=== PATIENT | male | born 1965 | race Caucasian/White ===

== ENCOUNTER → 2017-08-05 | Outpatient (CLI) | payer BC ==
[2017-08-05 15:08] LABS: Basophils % (A) 0 %; Eosinophils # (A) 0.2 k/uL (0-0.7); Eosinophils % (A) 2 %; HCT 28.8 % (39.0-53.0); HGB 8.9 gm/dL (13.0-17.5); Lymphocytes # (A) 2.9 k/uL (1.0-4.8); Lymphocytes % (A) 32 %; MCH 30.4 pg (25.0-35.0); Mean Platelet Volume 6.6; Monocytes # (A) 0.4 k/uL (0-1.0); Monocytes % (A) 4 %; Neutrophils # (A) 5.5 k/uL (1.3-7.7); Neutrophils % (A) 61 %; Platelet Count 398 k/uL (150-450); RBC 2.94 m/uL (4.30-5.90); RDW 14.5 % (11.5-15.5)
== END | disposition home or self-care (01) ==
LOC: LABWHC1 14:12
PROVIDERS: ATTEND Surgery Plastic and Reconstructive Surgery
DX: D64.9 Anemia, unspecified (principal); D62 Acute posthemorrhagic anemia
CPT/HCPCS: 36415; 85025

== ENCOUNTER → 2017-08-09 | Outpatient (CLI) | payer BC ==
[2017-08-09 10:47] LABS: HCT 28.9 % (39.0-53.0); HGB 9.1 gm/dL (13.0-17.5); MCH 30.5 pg (25.0-35.0); MCHC 31.4 g/dL (31.0-37.0); Mean Platelet Volume 6.9; Platelet Count 372 k/uL (150-450); RBC 2.98 m/uL (4.30-5.90); RDW 14.9 % (11.5-15.5); WBC 8.8 k/uL (3.8-10.6)
== END | disposition home or self-care (01) ==
LOC: LABWHC1 10:18
PROVIDERS: ATTEND Surgery Plastic and Reconstructive Surgery
DX: D62 Acute posthemorrhagic anemia (principal)
CPT/HCPCS: 36415; 85027

== ENCOUNTER → 2017-09-13 | Outpatient (CLI) | payer BC ==
[2017-09-13 15:56] LABS: HCT 40.5 % (39.0-53.0); HGB 13.4 gm/dL (13.0-17.5); MCH 32.3 pg (25.0-35.0); MCHC 33.2 g/dL (31.0-37.0); MCV 97.2 fL (80.0-100.0); Mean Platelet Volume 6.4; Platelet Count 278 k/uL (150-450); RBC 4.17 m/uL (4.30-5.90); RDW 13.6 % (11.5-15.5); WBC 9.4 k/uL (3.8-10.6)
== END | disposition home or self-care (01) ==
LOC: LABWHC1 15:10
PROVIDERS: ATTEND Surgery Plastic and Reconstructive Surgery
DX: D64.9 Anemia, unspecified (principal); K59.00 Constipation, unspecified; R53.83 Other fatigue
CPT/HCPCS: 36415; 82607; 85027

== ENCOUNTER → 2018-01-12 | Outpatient (CLI) | payer BC ==
[2018-01-12 11:20] LABS: HCT 46.6 % (39.0-53.0); MCH 30.3 pg (25.0-35.0); MCHC 32.2 g/dL (31.0-37.0); MCV 94.3 fL (80.0-100.0); Mean Platelet Volume 6.6; Platelet Count 333 k/uL (150-450); RBC 4.95 m/uL (4.30-5.90); RDW 15.7 % (11.5-15.5); WBC 8.3 k/uL (3.8-10.6)
== END | disposition home or self-care (01) ==
LOC: LABPAT 10:15
PROVIDERS: ATTEND Surgery Plastic and Reconstructive Surgery
DX: Z01.818 Encounter for other preprocedural examination (principal); Z01.812 Encounter for preprocedural laboratory examination; K43.0 Incisional hernia with obstruction, without gangrene
CPT/HCPCS: 85027; 93005

== ENCOUNTER 2018-01-13 05:54 | Day surgery (SDC) | payer BC ==
[2018-01-10 16:13] VITALS: BMI 27.9
--- NOTE | 2018-01-13 05:50 | P.GSHP ---
History of Present Illness H&P Date: 01/13/18 CHIEF COMPLAINT: Ventral hernia HISTORY OF PRESENT ILLNESS: The patient is a 52-year-old male who presents with a history of swelling and pain along the abdomen from a hernia. Now he presents for surgical intervention. PAST MEDICAL HISTORY: Please see list. PAST SURGICAL HISTORY: Please see list. MEDICATIONS: Please see list. ALLERGIES: Please see list. SOCIAL HISTORY: No illicit drug use FAMILY HISTORY: No reports of Crohn disease or ulcerative colitis. REVIEW OF ORGAN SYSTEMS: CONSTITUTIONAL: No reports of fevers or chills. No reports of weight loss despite prior attempts. GI: Denies any blood in stools or constipation. PHYSICAL EXAM: VITAL SIGNS: Stable GENERAL: Well-developed pleasant male in no acute distress. HEENT: No scleral icterus. Extraocular movements grossly intact. Moist buccal mucosa. NECK: Supple without lymphadenopathy. CHEST: Unlabored respirations. Equal bilateral excursions. CARDIOVASCULAR: Regular rate and rhythm. Distal 2+ pulses. ABDOMEN: Soft, nondistended. Palpable defect of the abdomen epigastrium. No peritoneal signs. MUSCULOSKELETAL: No clubbing, cyanosis, or edema. ASSESSMENT: 1. Ventral hernia PLAN: 1. Recommend proceeding with robotic ventral hernia repair with mesh. 2. Benefits and risks of surgical intervention was discussed including possibility of open technique. 3. DVT prophylaxis. 4. Antibiotic prophylaxis. Past Medical History Past Medical History: Chest Pain / Angina, GERD/Reflux, Hypertension, Osteoarthritis (OA) Additional Past Medical History / Comment(s): varicose veins, History of Any Multi-Drug Resistant Organisms: None Reported Past Surgical History: Cholecystectomy, Orthopedic Surgery, Tonsillectomy Additional Past Surgical History / Comment(s): ACL left knee, Laser surgery to open arteries in selena legs, Past Anesthesia/Blood Transfusion Reactions: No Reported Reaction Smoking Status: Current every day smoker - Past Family History Mother Family Medical History: No Reported History Medications and Allergies Home Medications Medication Instructions Recorded Confirmed Type Metoprolol Tartrate [Lopressor] 50 mg PO BID 03/24/15 01/10/18 History amLODIPine [Norvasc] 10 mg PO DAILY 03/24/15 01/10/18 History cloNIDine HCL [Catapres] 0.3 mg PO BID 03/24/15 01/10/18 History Omeprazole [PriLOSEC] 40 mg PO DAILY 08/23/17 01/10/18 History Pramipexole [Mirapex] 0.5 mg PO HS 01/10/18 01/10/18 History Allergies Allergy/AdvReac Type Severity Reaction Status Date / Time morphine topical Allergy blisteres,h Uncoded 01/10/18 16:08 karen
[~2018-01-13 05:54] MED LIST: ACETAMINOPHEN IV (For NPO) 1,000 MG in EMPTY BAG 1 BAG IVPB ONE; HEPARIN SODIUM,PORCINE 5,000 UNIT/ML 1 ML VIAL SQ ONE; ceFAZolin IN SWFI 2 GM/20 ML SYRINGE IVP ONE
[2018-01-13] MEDS ORDERED: LACTATED RINGERS 1,000 ML IV SCH (06:08)
[2018-01-13] MEDS ORDERED: MIDAZOLAM 2 MG/2 ML VIAL IV PRN (06:08)
[2018-01-13] MEDS ORDERED: SCOPOLAMINE 1.5MG/72HR PATCH TRANSDERM ONE (06:08)
[2018-01-13] MEDS ORDERED: ONDANSETRON 4 MG/2 ML VIAL IVP ONE (06:08)
[2018-01-13] MEDS ORDERED: fentaNYL (PF) 50 MCG/ML 2 ML AMP IV PRN (06:08)
[2018-01-13] MEDS ORDERED: DEXAMETHASONE SOD PHOSPHATE 10 MG/ML 1 ML VIAL IV ONE (06:08)
[2018-01-13] MEDS ORDERED: LIDOCAINE 1% 20 ML VIAL (10MG/ML) FOR IV START INTRADERMA ONE (06:30)
[2018-01-13] MEDS ORDERED: ROPIVACAINE 5 MG/ML 30 ML VIAL ONE (06:51)
[2018-01-13] MEDS ORDERED: BUPIVACAIN-EPI 0.5%-1:200,000 30 ML VIAL SQ ONE (07:28)
[2018-01-13] MEDS ORDERED: ePHEDrine SULFATE/0.9% NACL/PF 50 MG/5 ML SYRINGE IV ONE (07:44)
[2018-01-13] MEDS ORDERED: MIDAZOLAM 2 MG/2 ML VIAL ONE (07:44)
[2018-01-13] MEDS ORDERED: NEOSTIGMINE 1 MG/ML 10 ML VIAL ONE (07:44)
[2018-01-13] MEDS ORDERED: SUCCINYLCHOLINE CHLORIDE 100 MG/5 ML SYR IV ONE (07:44)
[2018-01-13] MEDS ORDERED: LIDOCAINE 1% INJ 10MG/ML (20 ML MDV) ONE (07:44)
[2018-01-13] MEDS ORDERED: ROCURONIUM BROMIDE 10 MG/ML 10 ML VIAL IV ONE (07:44)
[2018-01-13] MEDS ORDERED: PROPOFOL 10 MG/ML 20 ML VIAL IV ONE (07:44)
[2018-01-13] MEDS ORDERED: GLYCOPYRROLATE 0.2 MG/ML 2 ML VIAL ONE (07:44)
[2018-01-13] MEDS ORDERED: fentaNYL (PF) 50 MCG/ML 2 ML AMP ONE (07:44)
[2018-01-13] MEDS ORDERED: LACTATED RINGERS 1,000 ML IV ONE (08:07)
[2018-01-13 08:53] VITALS: TEMP 98.6
--- NOTE | 2018-01-13 08:57 | P.OP ---
Date of Procedure: 01/13/18 Description of Procedure: Date of Procedure: 01/13/18 SURGEON: HAIDER DA SILVA MD PREOPERATIVE DIAGNOSES: 1. Recurrent epigastric incisional hernia with incarceration 2. Chronic pain syndrome 3. Periumbilical pain 4. Previous history of umbilical hernia repair 5. Hypertensive heart disease 6. Gastroesophageal reflux disease 7. Previous history of duodenal ulcer benign deficiency anemia 8. Osteoarthritis lower back POSTOPERATIVE DIAGNOSES: 1. Recurrent epigastric incisional hernia with incarceration, 3 cm 2. Chronic pain syndrome 3. Periumbilical pain 4. Previous history of umbilical hernia repair 5. Hypertensive heart disease 6. Gastroesophageal reflux disease 7. Previous history of duodenal ulcer benign deficiency anemia 8. Osteoarthritis lower back 9. Severe peritoneal adhesions periumbilical from previous mesh repair OPERATION: 1. Robotic-assisted da Alejandro Xi laparoscopic extensive lysis of adhesions over 30 minutes 2. Robotic-assisted da Alejandro Xi laparoscopic repair of recurrent incarcerated 3 cm incisional hernia, epigastrium with mesh, ventralight ST mesh 11.4 cm ESTIMATED BLOOD LOSS: 10 mL. Anesthesia: GETA, local Pathology: other (Incarcerated epigastric hernia) Condition: stable Disposition: same day COMPLICATIONS: None. INDICATIONS: The patient is a 52-year-old female who presents recurrent incisional ventral hernia of the epigastrium. He also complains of severe periumbilical pain from recent ventral hernia less than one year ago. Surgical intervention with laparoscopic versus robotic and open techniques were reviewed. Placement of mesh was also reviewed. Benefits and risks were thoroughly described. Informed consent was obtained. DESCRIPTION OF PROCEDURE: The patient was brought into the operating room and laid in supine position. After general induction, the abdomen had been prepped and draped in standard sterile fashion. Ioban draping was also placed. Prior to incision, a timeout protocol was confirmed with surgical team regarding the patient's name including procedures to be performed. The robot was primed prior to the procedure. A field block using local anesthetic was placed along hernia site including the proposed port sites. Initial incision was made with an #11 blade along the left upper quadrant. A 0 degree 5 mm laparoscopic trocar entry was performed and insufflated. Diagnostic laparoscopy demonstrated moderate peritoneal adhesions involving the umbilical region from previous mesh repair. The dome of the liver was adherent to the epigastric hernia. Two 8 mm ports were placed along the left lower quadrant under direct localization. The 5-mm port was exchanged for an 8 mm robotic port. Placements of the ports were 15 cm from the target anatomy and approximately 10 cm apart. The [employer] robot was previously primed, prepped and draped then docked along the left side of the patient. I then sat at the robot Da Alejandro Xi console where working arms of the robot including Bovie cautery connected to robotic scissors, vessel sealer, needle regional owner operator truck driver, and graspers placed by the assistant infant toddler teacher. Adhesions were just initially addressed using combination of scissors as well as vessel sealer. Lysis of adhesions over 30 minutes was performed completely removing all adhesions from his umbilical previous mesh repair. No recurrence of his umbilical hernia was identified. Attention is now brought to the epigastrium where the liver bed was dissected free from the abdominal wall of the left lobe of the liver. Fascial defect of 3 cm of the epigastrium was identified after cleaning the peritoneal fat of the abdominal wall. The incarcerated contents was reduced as the peritoneal fat was cleaned from the abdominal wall. Next, hemostasis was checked with cautery. The hernia defect was oversewn using #1 Stratafix in imbricated fashion. Next, ventralight ST mesh 11.4 cm was cut to an quarter size as a patch placed with the rough side towards the abdominal wall. 2-0 VLOC sutures were used to fixate the mesh. A final endoscopic imaging was obtained. All instruments and pneumoperitoneum were evacuated from the abdominal cavity. The da Alejandro Xi robot was undocked from the patient. I re-scrubbed into the case for closure of incisions. The incisions were reapproximated using 4-0 Monocryl in an interrupted subcuticular fashion. Liquid glue was applied to the skin after cleansing the skin with normal saline and dilute hydrogen peroxide. An abdominal binder was placed. At the end of the procedure, needle, sponge, and instrument count had been verified correct by surgical sales representative. The patient was taken to the postanesthesia care unit in stable condition. Operative Findings: 1. Severe adhesions greater omentum to abdominal wall from previous mesh repair along the umbilicus 2. No recurrent umbilical hernia 3. Separate incarcerated epigastric recurrent incisional hernia incorporating dome of liver addressed with dissection showing a 3 cm incarcerated hernia. 4. Mesh cut to size as patch over epigastric hernia
[2018-01-13] MEDS ORDERED: ROPIVACAINE 5 MG/ML 30 ML VIAL MISCELLANE ONE (09:45)
[2018-01-13] MEDS ORDERED: LIDOCAINE 1%-EPI 1:100,000 30 ML VIAL SQ ONE (09:45)
--- NOTE | 2018-01-13 10:08 | P.ONQ ---
Anesthesiology Proc Note - PNB - Peripheral Nerve Block Performed Bilateral Rectus Abdominis Single Time Out Performed: Yes Procedure Start Time: 09:45 Indication: Acute Post-Operative Pain, Analgesia Specifically requested for management of pain by DrSukhjinder: Yesi Yeboah Sedation Type: Sedate with meaningful contact maintained Preparation: Sterile Prep Position: Supine Catheter: None Needle Types: Other (see comment) (Pajunk) Needle Size: 100mm (4") Needle Gauge: 21 Technique: Ultrasound Injectate: Other (see comment) (0.25% Ropivicaine + 0.5% Lidocaine 30cc per side ) Adjunct: Epinephrine (see comment for dilution ratio) (1:200,000) Blood Aspirated: No Pain Paresthesia on Injection Noted: No Resistance on Injection: Normal Events: Uneventful and Well Tolerated
[2018-01-13 10:22] VITALS: RESP 18
[2018-01-13] MEDS ORDERED: HYDROcodone/APAP 7.5-325MG 1 EACH TAB PO ONE (10:37)
[2018-01-13 11:20] VITALS: BP 136/70; PULSE 76
== END 2018-01-13 11:21 | disposition home or self-care (01) ==
LOC: OR 05:54
PROVIDERS: ATTEND Surgery Plastic and Reconstructive Surgery
DX: K43.0 Incisional hernia with obstruction, without gangrene (principal); K66.0 Peritoneal adhesions (postprocedural) (postinfection); K21.9 Gastro-esophageal reflux disease without esophagitis; I11.9 Hypertensive heart disease without heart failure; G89.4 Chronic pain syndrome; F17.210 Nicotine dependence, cigarettes, uncomplicated; M47.9 Spondylosis, unspecified; Z79.899 Other long term (current) drug therapy; Z87.11 Personal history of peptic ulcer disease; Z88.5 Allergy status to narcotic agent
CPT/HCPCS: 49657; 49329; 64488; 88302; C1781; J2250; J1644; J1100; J2710; J2405; J2001; J3010; J2795; J0131; J0330; J2704; J0690

== ENCOUNTER → 2018-05-17 | Outpatient (CLI) | payer BC ==
--- NOTE | 2018-05-17 14:59 | MR ---
EXAMINATION TYPE: MR lumbar spine wo con DATE OF EXAM: 05/17/2018 COMPARISON: NONE HISTORY: Chronic LBP, radiates down lt leg/rt buttock; no trauma/surgery TECHNIQUE: Multiplanar, multisequence imaging of the lumbar spine is performed without IV contrast. FINDINGS: Sagittal images of the lumbar spine show vertebral body heights and alignment to appear sat isfactory. Disc desiccation L4-L5 level is present. Small posterior disc herniation L4-L5 level is se en. The conus medullaris is normal in position and signal ending mid L1 level. Small hemangioma is no asif at T11 level sagittal image 8. Axial images show the T12-L1, L1-L2, and L2-L3 levels all to appear within normal limits. Axial images at the L3-L4 level show mild broad disc bulge minimally effacing anterior thecal sac, ri ght-sided neural foramina is mildly narrowed anterior inferior aspect. Axial images at the L4-L5 level show mild facet degenerative changes bilaterally. There is mild broad disc bulge with central disc protrusion component mildly effacing anterior thecal sac. There is mild bilateral anterior inferior neural foraminal narrowing. Axial images at L5-S1 level show mild facet degenerative changes bilaterally. Spinal canal is preserv ed. Bilateral neural foramina are patent. No suspicious incidental retroperitoneal findings are seen. IMPRESSION: Some multilevel degenerative changes most prominent at L4-L5 level as detailed above. No significant finding however seen to account for patient's right-sided radiculopathy type symptoms.
== END | disposition home or self-care (01) ==
LOC: RADMRIMAIN 14:03
PROVIDERS: ATTEND Neurological Surgery
DX: M47.26 Other spondylosis with radiculopathy, lumbar region (principal); M51.26 Other intervertebral disc displacement, lumbar region; M48.062 Spinal stenosis, lumbar region with neurogenic claudication; S33.1 Subluxation and dislocation of lumbar vertebra
CPT/HCPCS: 72148

== ENCOUNTER 2018-06-24 10:04 | Inpatient (IN) | payer BC ==
[2018-06-24] MEDS ORDERED: HEPARIN SODIUM,PORCINE 5,000 UNIT/ML 1 ML VIAL IV STA (10:15)
[2018-06-24] MEDS ORDERED: NITROGLYCERIN OINT 1 INCH/GM PACKET TOPICAL STA (10:15)
[2018-06-24] MEDS ORDERED: ATORVASTATIN 80 MG TAB PO STA ×2 (10:16→10:44)
--- NOTE | 2018-06-24 10:19 | ED ---
Chest Pain HPI - General Chief Complaint: Chest Pain Stated Complaint: Poss Stemi Time Seen by Provider: 06/24/18 10:04 Source: patient, EMS, RN notes reviewed Mode of arrival: EMS Limitations: no limitations - History of Present Illness Initial Comments: This is a 53-year-old male with a history of hypertension cholecystectomy in the past who smokes 1-1/2 packs of cigarettes per day who states he was awoken from sleep about 1 hour prior to arrival with retrosternal chest pain 8-9/10 in severity with no shortness of breath no sweating no nausea vomiting. He states like someone sitting on his chest he took a total of 650 mg of aspirin at home EMS was called he was given one nitroglycerin 1 nitro took the pain down to a 3 by time he arrived here was 1/10 in severity. Patient was transported green party 1. Unsuccessful attempt was made to transfer the EKG to the emergency department upon arrival of the strep was reviewed by me and did show evidence of ST elevation in leads II, III, and F aVF with reciprocal changes. A STEMI alert was called. Patient does state he also had an epidural done yesterday. MD Complaint: chest pain - Related Data Home Medications Medication Instructions Recorded Confirmed Metoprolol Tartrate [Lopressor] 50 mg PO BID 03/24/15 06/24/18 amLODIPine [Norvasc] 10 mg PO DAILY 03/24/15 06/24/18 cloNIDine HCL [Catapres] 0.3 mg PO BID 03/24/15 06/24/18 Pramipexole [Mirapex] 0.5 mg PO HS 01/10/18 06/24/18 ALPRAZolam [Xanax] 0.5 - 1 mg PO DAILY PRN 06/24/18 06/24/18 Aspirin EC [Ecotrin] 650 mg PO ONCE PRN 06/24/18 06/24/18 Omeprazole 20 mg PO BID 06/24/18 06/24/18 Allergies Allergy/AdvReac Type Severity Reaction Status Date / Time morphine topical Allergy blisteres,h Uncoded 06/24/18 10:15 karen Review of Systems ROS Statement: Those systems with pertinent positive or pertinent negative responses have been documented in the HPI. ROS Other: All systems not noted in ROS Statement are negative. EKG Findings - EKG Results: EKG: interpreted by ERMD, sinus rhythm (EKG done at the time of arrival revealed a normal sinus rhythm a 92 appear interval 132 QRS duration 116 QT since QTC 346/427 year. Be some improvement of the EKG findings) Past Medical History Past Medical History: Chest Pain / Angina, GERD/Reflux, Hypertension, Osteoarthritis (OA) Additional Past Medical History / Comment(s): varicose veins, History of Any Multi-Drug Resistant Organisms: None Reported Past Surgical History: Cholecystectomy, Orthopedic Surgery, Tonsillectomy Additional Past Surgical History / Comment(s): ACL left knee, Laser surgery to open arteries in selena legs, Past Anesthesia/Blood Transfusion Reactions: No Reported Reaction Past Psychological History: Anxiety Smoking Status: Current every day smoker Past Alcohol Use History: None Reported Past Drug Use History: Marijuana - Past Family History Mother Family Medical History: No Reported History General Exam - General Exam Comments Initial Comments: This is a well-developed well-nourished awake alert oriented 3 male Limitations: no limitations General appearance: alert, in no apparent distress Head exam: Present: atraumatic, normocephalic, normal inspection Eye exam: Present: normal appearance, PERRL, EOMI. Absent: scleral icterus, conjunctival injection, periorbital swelling ENT exam: Present: normal exam, mucous membranes moist Neck exam: Present: normal inspection, full ROM, other (No stridor JVD or bruits). Absent: tenderness, meningismus, lymphadenopathy Respiratory exam: Present: normal lung sounds bilaterally. Absent: respiratory distress, wheezes, rales, rhonchi, stridor Cardiovascular Exam: Present: regular rate, normal rhythm, normal heart sounds. Absent: systolic murmur, diastolic murmur, rubs, gallop, clicks GI/Abdominal exam: Present: soft, normal bowel sounds. Absent: distended, tenderness, guarding, rebound, rigid, bruit, pulsatile mass, hernia Extremities exam: Present: normal inspection, full ROM, normal capillary refill. Absent: tenderness, pedal edema, joint swelling, calf tenderness Back exam: Present: normal inspection Neurological exam: Present: alert, oriented X3, CN II-XII intact Psychiatric exam: Present: normal affect, normal mood Skin exam: Present: warm, dry, intact, normal color. Absent: rash Course Vital Signs 06/24/18 06/24/18 06/24/18 10:09 10:16 10:31 Temperature 98.1 F Pulse Rate 110 H 105 H 101 H Respiratory 18 18 18 Rate Blood Pressure 176/107 179/96 149/88 O2 Sat by Pulse 100 100 96 Oximetry 06/24/18 10:41 Temperature Pulse Rate 96 Respiratory 18 Rate Blood Pressure 153/88 O2 Sat by Pulse 98 Oximetry - Reevaluation(s) Reevaluation #1: 06/24/18 10:20 Cardiac monitoring: gambling monitor indicated chest pain rule out dysrhythmia no evidence of PACs or PVCs noted. Heart rate was noted be 95 initially Reevaluation #2: 06/24/18 10:51 Repeat evaluation the patient's pain was almost resolved. Dr. Polo was notified. Crystal his nurse practitioner came down to see the patient patient will go to the Registered Nurse Supervisor for emergent catheterization and treatment Procedures - Smoking Cessation Time Spent Discussing Smoking Cessation w/Patient (Minutes): 3 Critical Care Time Critical Care Time: Yes Critical Care Time: 35 minutes of critical care time which includes initial presentation with history physical labs x-rays multiple reevaluation the patient to responsive therapy scheduled with cardiology discussion with the admitting physician Dr. Ireland, discussed with family members regarding the findings brief admission orders and documentation of the above. Disposition Clinical Impression: Acute CO, inferior wall, Chest pain, Smoking, Hypertension Disposition: ADMITTED IP TO THIS HOSP Condition: Critical Referrals: Steffi Lee MD [Primary Care Provider] - 1-2 days
[2018-06-24 10:26] LABS: Basophils % (A) 0 %; Eosinophils # (A) 0.3 k/uL (0-0.7); Eosinophils % (A) 2 %; HCT 49.7 % (39.0-53.0); HGB 16.3 gm/dL (13.0-17.5); Lymphocytes # (A) 1.9 k/uL (1.0-4.8); Lymphocytes % (A) 12 %; MCH 31.1 pg (25.0-35.0); MCHC 32.7 g/dL (31.0-37.0); Mean Platelet Volume 6.2; Monocytes # (A) 0.8 k/uL (0-1.0); Monocytes % (A) 5 %; Neutrophils # (A) 12.7 k/uL (1.3-7.7); Neutrophils % (A) 80 %; Platelet Count 337 k/uL (150-450); RBC 5.23 m/uL (4.30-5.90); WBC 15.9 k/uL (3.8-10.6)
--- NOTE | 2018-06-24 10:27 | XR ---
EXAMINATION TYPE: XR chest 1V portable DATE OF EXAM: 06/24/2018 HISTORY: chest pain. REFERENCE: NONE. FINDINGS: Heart several limits of normal in size. The lungs are clear. Pleural spaces are clear. IMPRESSION: BORDERLINE CARDIOMEGALY.
[2018-06-24 10:32] LABS: INR 0.9 (<1.2); Partial Thromboplastin Time 24.9 sec (22.0-30.0); Prothrombin Time 10.1 sec (9.0-12.0)
[2018-06-24 10:35] LABS: ALT 41 U/L (21-72); AST 37 U/L (17-59); Albumin 4.7 g/dL (3.5-5.0); Alkaline Phosphatase 92 U/L (38-126); Anion Gap 8 mmol/L; Blood Urea Nitrogen 18 mg/dL (9-20); Calcium 10.3 mg/dL (8.4-10.2); Carbon Dioxide 29 mmol/L (22-30); Chloride 104 mmol/L (98-107); Glucose 126 mg/dL (74-99); Potassium 4.4 mmol/L (3.5-5.1); Sodium 141 mmol/L (137-145); Total Bilirubin 0.4 mg/dL (0.2-1.3); Total Protein 7.5 g/dL (6.3-8.2)
[2018-06-24] MEDS ORDERED: ALPRAZolam 0.25 MG TAB PO PRN (10:44)
[2018-06-24] MEDS ORDERED: ASPIRIN 325 MG TAB PO STA (10:44)
[2018-06-24] MEDS ORDERED: NITROGLYCERIN SL TABS 0.4 MG TAB SUBLINGUAL PRN ×2 (10:44→11:37)
[2018-06-24 10:56] LABS: Creatine Kinase MB 11.4 ng/mL (0.0-2.4); Troponin I 1.6 ng/mL (0.000-0.034)
[2018-06-24] MEDS ORDERED: IV FLUID CONTINUATION 1,000 ML IV ONE (11:00)
[2018-06-24] MEDS ORDERED: fentaNYL (PF) 50 MCG/ML 2 ML AMP ONE (11:01)
[2018-06-24] MEDS ORDERED: LIDOCAINE 1% INJ 10MG/ML (20 ML MDV) ONE (11:01)
[2018-06-24] MEDS ORDERED: VERAPAMIL 2.5 MG/ML 2 ML AMP ONE (11:01)
[2018-06-24] MEDS ORDERED: fentaNYL (PF) 50 MCG/ML 2 ML AMP IV ONE (11:05)
[2018-06-24] MEDS ORDERED: LIDOCAINE 1% INJ 10MG/ML (20 ML MDV) SQ ONE (11:06)
[2018-06-24] MEDS ORDERED: VERAPAMIL SYRINGE (5 MG/10 ML) INTRAARTER ONE (11:08)
[2018-06-24] MEDS ORDERED: PRASUGREL 10 MG TAB ONE (11:13)
[2018-06-24] MEDS ORDERED: BIVALIRUDIN BOLUS 250 MG/50 ML IV ONE (11:14)
[2018-06-24] MEDS ORDERED: BIVALIRUDIN 250 MG in SODIUM CHLORIDE 0.9% 50 ML IV ONE (11:16)
[2018-06-24] MEDS ORDERED: PRASUGREL 10 MG TAB PO ONE (11:17)
--- NOTE | 2018-06-24 11:18 | P.CRDCN ---
History of Present Illness Consult date: 06/24/18 Reason for Consult (text): STEMI Chief complaint: Chest heaviness History of present illness: This pleasant 53-year-old gentleman with history of hypertension, cholecystectomy, low back pain, recent epidural injections, smokes about a pack and a half a day and family history of CAD with his father and grandfather both passing away at 60 from [place]. He presented to the emergency department with symptoms of chest heaviness. According to the patient earlier this morning he developed some heaviness in his chest, he lied down and this resolved. Subsequently he developed another episode of mid chest heaviness that he described as someone sitting on his chest at which time he took 2 aspirin and called 911. EKG from EMS showed ST elevation in leads II, III and aVF with reciprocal changes. He was given sublingual nitro with resolution of his pain and upon arrival to the ER he denied further complaints of chest heaviness. EKG on arrival to the emergency department showed no further changes of ST elevation. He does have a history of prior cardiac catheterization done in 2015 which revealed mild intimal coronary artery disease with a minimally impaired LV systolic function. Echocardiogram done in 2014 showed evidence of impaired LV systolic function with an ejection fraction 35-40%. He has not followed with nut threader since 2016. Past Medical History Past Medical History: Chest Pain / Angina, GERD/Reflux, Hypertension, Osteoarthritis (OA) Additional Past Medical History / Comment(s): varicose veins, History of Any Multi-Drug Resistant Organisms: None Reported Past Surgical History: Cholecystectomy, Orthopedic Surgery, Tonsillectomy Additional Past Surgical History / Comment(s): ACL left knee, Laser surgery to open arteries in selena legs, Past Anesthesia/Blood Transfusion Reactions: No Reported Reaction Past Psychological History: Anxiety Smoking Status: Current every day smoker Past Alcohol Use History: None Reported Past Drug Use History: Marijuana - Past Family History Mother Family Medical History: No Reported History Medications and Allergies Home Medications Medication Instructions Recorded Confirmed Type Metoprolol Tartrate [Lopressor] 50 mg PO BID 03/24/15 06/24/18 History amLODIPine [Norvasc] 10 mg PO DAILY 03/24/15 06/24/18 History cloNIDine HCL [Catapres] 0.3 mg PO BID 03/24/15 06/24/18 History Pramipexole [Mirapex] 0.5 mg PO HS 01/10/18 06/24/18 History ALPRAZolam [Xanax] 0.5 - 1 mg PO DAILY PRN 06/24/18 06/24/18 History Aspirin EC [Ecotrin] 650 mg PO ONCE PRN 06/24/18 06/24/18 History Omeprazole 20 mg PO BID 06/24/18 06/24/18 History Allergies Allergy/AdvReac Type Severity Reaction Status Date / Time morphine topical Allergy blisteres,h Uncoded 06/24/18 10:15 karen Physical Exam Vitals: Vital Signs Temp Pulse Resp BP Pulse Ox 06/24/18 10:41 96 18 153/88 98 06/24/18 10:31 101 H 18 149/88 96 06/24/18 10:16 105 H 18 179/96 100 06/24/18 10:09 98.1 F 110 H 18 176/107 100 Intake and Output 06/23/18 06/24/18 06/24/18 22:59 06:59 14:59 Other: Weight 77.111 kg PHYSICAL EXAMINATION: HEENT: Head is atraumatic, normocephalic. Pupils equal, round. Neck is supple. There is no elevated jugular venous pressure. HEART EXAMINATION: Heart sounds regular, S1 and S2 normal. No murmur or gallop heard. CHEST EXAMINATION: Lungs reveal diminished air entry bilaterally. No chest wall tenderness is noted on palpation or with deep breathing. ABDOMEN: Soft, obese, nontender. Bowel sounds are heard. No organomegaly noted. EXTREMITIES: 1+ bilateral pedal pulses, 2+ femoral and radial pulses bilaterally with no evidence of peripheral edema and no calf tenderness noted. NEUROLOGIC patient is awake, alert and oriented x3. . Results 06/24/18 10:10 06/24/18 10:10 Cardiac Enzymes 06/24/18 06/24/18 Range/Units 10:10 10:10 AST 37 (17-59) U/L CK-MB (CK-2) 11.4 H (0.0-2.4) ng/mL Troponin I 1.600 H* (0.000-0.034) ng/mL Coagulation 06/24/18 Range/Units 10:10 PT 10.1 (9.0-12.0) sec APTT 24.9 (22.0-30.0) sec CBC 05/18/19 Range/Units 10:10 WBC 15.9 H (3.8-10.6) k/uL RBC 5.23 (4.30-5.90) m/uL Hgb 16.3 (13.0-17.5) gm/dL Hct 49.7 (39.0-53.0) % Plt Count 337 (150-450) k/uL Comprehensive Metabolic Panel 06/24/18 Range/Units 10:10 Sodium 141 (137-145) mmol/L Potassium 4.4 (3.5-5.1) mmol/L Chloride 104 (98-107) mmol/L Carbon Dioxide 29 (22-30) mmol/L BUN 18 (9-20) mg/dL Creatinine 0.59 L (0.66-1.25) mg/dL Glucose 126 H (74-99) mg/dL Calcium 10.3 H (8.4-10.2) mg/dL AST 37 (17-59) U/L ALT 41 (21-72) U/L Alkaline Phosphatase 92 (38-126) U/L Total Protein 7.5 (6.3-8.2) g/dL Albumin 4.7 (3.5-5.0) g/dL Current Medications Generic Name Dose Route Start Last Admin Trade Name Freq PRN Reason Stop Dose Admin Alprazolam 0.25 mg 06/24/18 10:44 Xanax PO Q6HR PRN Mild Anxiety Alprazolam 0.5 mg 06/24/18 10:44 Xanax PO Q6HR PRN Moderate Anxiety Nitroglycerin 0.4 mg 06/24/18 10:44 Nitrostat SUBLINGUAL Q5M PRN Chest Pain Intake and Output 06/23/18 06/24/18 06/24/18 22:59 06:59 14:59 Other: Weight 77.111 kg Patient Weight 06/25/18 06:59 Weight 77.111 kg 06/24/18 10:10 06/24/18 10:10 EKG Interpretations (text) Initial EKG from EMS showed evidence of acute inferior STEMI Assessment and Plan Assessment: #1 inferior wall STEMI #2 history of nonischemic cardiomyopathy #3 noncompliance #4 Hypertension #5 nicotine dependence #6 family history CAD Plan: From cardiology perspective, the patient will be taken to the cardiac pathology lab technician for urgent coronary angiography. Discussed in detail with the patient the procedure, risks and benefits and he is agreeable. Also obtain a 2-D echo with Doppler to assess LV systolic function. Further recommendations will be made depending on findings of coronary angiography. PROTEOMICS SCIENTIST note has been reviewed, I agree with a documented findings and plan of care. Patient was seen and examined.
[2018-06-24] MEDS ORDERED: IOPAMIDOL-370 100ML BTL INJ ONE (11:29)
[2018-06-24] MEDS ORDERED: IOPAMIDOL-370 125ML BTL INJ ONE (11:29)
[2018-06-24] MEDS ORDERED: MAG HYDROX/AL HYDROX/SIMETH 30 ML CUP PO PRN (11:37)
[2018-06-24] MEDS ORDERED: ATROPINE SULFATE 0.1 MG/ML 10ML SYRINGE IV PRN (11:37)
[2018-06-24] MEDS ORDERED: RX INFO: IV CONTRAST WAS GIVEN 1 EACH MISC MISCELLANE PRN (11:37)
[2018-06-24] MEDS ORDERED: SODIUM CHLORIDE 0.9% 1,000 ML IV SCH (11:45)
[2018-06-24 12:00] LABS: Glucose,Whole Blood 120 mg/dL (75-99)
[2018-06-24 12:08] LABS: Magnesium 1.9 mg/dL (1.6-2.3)
--- NOTE | 2018-06-24 12:30 | CC ---
CARDIAC CATHETERIZATION REPORT Mr. Blair is a 53-year-old male with known history of severe peripheral vascular disease, history of hypertension, chronic tobacco use, who presented to the emergency room with symptoms of chest discomfort. His EMS EKG showed ST-segment elevation inferiorly that improved by the time of his arrival. Because of his history and his presentation, recommendation made regarding cardiac catheterization. The procedures as well as risks and complication were discussed with the patient who is in full understanding and agreement. PROCEDURE: Patient was brought to the laborer shaft sinking in a fasting semisedated state after receiving fentanyl and Benadryl and achieving moderate conscious sedated state. Using Xylocaine anesthesia and Seldinger technique, a a 6-Kittitian sheath was introduced in the right radial artery. Selective right and left coronary angiography performed using 6-Kittitian 3 and half bend FR guiding catheter. After obtaining images of the coronary arteries and performing angioplasty and stenting, a 5-Kittitian 3 and half bend left Bryanna catheter was introduced into the system and images of the left coronary system were obtained. Following that, a 5-Kittitian tight pigtail catheter was introduced into the left ventricle and a 30 degree TIRADO view of the left ventricle was obtained. Following that, catheter and sheath were removed. Hemostasis was obtained with deployment of TR band. There was no immediate complication. Patient returned to his room in stable condition. Of note, the patient received Angiomax per protocol as well as oral loading dose of Effient and intra-arterial verapamil. FINDINGS: LEFT MAIN: This is a large-sized vessel bifurcating into left circumflex, left anterior descending artery. Left main coronary artery has no evidence of high-grade stenosis. LEFT ANTERIOR DESCENDING ARTERY: This is a large-sized vessel reaching toward the apex with a wraparound apex segment giving rise to a large diagonal branch. The left anterior descending artery in mid segment has 20% plaque. The rest of the vessel has no high-grade stenosis. CIRCUMFLEX CORONARY ARTERY: This is a large nondominant vessel giving rise to a large obtuse marginal branch. The left circumflex proximally has a 20% plaque. The rest of the vessel has no high-grade stenosis. RIGHT CORONARY ARTERY: This is a large dominant vessel bifurcating distally PDA and posterolateral segment and branches. The right coronary artery in mid segment has a 30% to 40% plaque, distally at the bifurcation has a 99% stenosis. The proximal PLV has a 60% plaque. FLUOROSCOPY: There was calcification involving the right coronary artery and the left circumflex. LEFT VENTRICULOGRAM: Left ventriculogram was performed in 30 degree TIRADO view and reveals normal left ventricular size and systolic function. Ejection fraction 60%. There was no significant mitral regurgitation. HEMODYNAMICS: There was no gradient across the aortic valve. The left ventricular end-diastolic pressure was 12-14 mmHg. CONCLUSION: 1. Critical stenosis involving the distal right coronary artery. 2. Mild disease in the LAD and left circumflex. 3. Normal left ventricular size and systolic function. RECOMMENDATION: In view of findings and anatomy, I recommend proceeding with angioplasty and stenting of the RCA. The procedure as well as risks and complication were discussed with the patient who is in full understanding and agreement. MMODL / IJN: [id number] /
--- NOTE | 2018-06-24 12:33 | PTCA ---
PERCUTANEOUSTRANS CORORONARY ANGIOGRAPHY Mr. Blair is a 53-year-old male with a known history of hypertension, chronic tobacco use and peripheral vascular disease who presented with ST-segment elevation involving the inferior wall. He underwent cardiac catheterization, was found to have critical stenosis involving the distal right coronary artery. In view of that, recommendations were made regarding angioplasty and stenting. The procedure as well as risks and complication were discussed with the patient who is in full understanding and agreement. PROCEDURE: Using the 6-Faroese FR 3 and half guiding catheter, after cannulating the right coronary ostium, a 0.014 balanced medium weight J-wire was advanced across the lesion, positioned distally. Subsequently a 2.5 x 12 mm Trek balloon was advanced and one inflation at 8 atmospheres was done. Following that, the balloon was removed and a 3.0 x 18 mm Xience Julia stent was deployed. It was dilated at 16 atmospheres. After the last inflation, after appropriate wait, the balloon and the guidewire were withdrawn back in the guiding catheter, images were obtained and repeated. Those images reveal stable successful stenting. At that point, the guiding catheter, the balloon and the guidewire were removed, images of the left coronary system as well as left ventriculogram was performed. Following that, catheter and sheaths were removed. Hemostasis was obtained with deployment of a TR band. There was no immediate complication. Patient was returned to his room in stable condition. Of note, the patient received Angiomax per protocol as well as oral loading dose of Effient. He had no chest discomfort, but he had EKG changes that resolved at the end of the procedure. RESULTS: Successful stenting of the distal right coronary artery with reduction of stenosis from 99% to 0%. RECOMMENDATION: Patient will be continued on aspirin, Effient, beta blockers and zenobia inhibitors and statin. The importance of dual antiplatelet treatment and smoking cessation were discussed with the patient who is in full understanding and agreement. Duration of procedure is 25 minutes. MMODL / IJN: [id number] /
[2018-06-24] MEDS: LISINOPRIL 10 MG TAB PO SCH ×2 (16:05→22:23)
[2018-06-24] MEDS: ALPRAZolam 0.5 MG TAB PO PRN (16:12)
--- NOTE | 2018-06-24 16:36 | ECHOF ---
Referral Reason:STEMI MEASUREMENTS -------- HEIGHT: 162.6 cm WEIGHT: 77.1 kg BP: 153/88 RVIDd: 3.0 cm (< 3.3) IVSd: 1.5 cm (0.6 - 1.1) LVIDd: 4.3 cm (3.9 - 5.3) LVPWd: 1.6 cm (0.6 - 1.1) IVSs: 2.1 cm LVIDs: 3.0 cm LVPWs: 2.1 cm LA Diam: 3.8 cm (2.7 - 3.8) LAESV Index (A-L): 18.72 ml/m Ao Diam: 3.4 cm (2.0 - 3.7) AV Cusp: 2.6 cm (1.5 - 2.6) MV EXCURSION: 14.924 mm (> 18.000) MV EF SLOPE: 52 mm/s (70 - 150) EPSS: 0.9 cm MV E Tesfaye: 0.69 m/s MV DecT: 282 ms MV A Tesfaye: 0.83 m/s MV E/A Ratio: 0.84 FINDINGS -------- Sinus rhythm. This was a technically good study. The left ventricular size is normal. There is moderate concentric left ventricular hypertrophy. O verall left ventricular systolic function is normal with, an EF between 55 - 60 %. The right ventricle is normal in size. Normal LA size by volume 22+/-6 ml/m2. The right atrium was not well visualized. Interatrial and interventricular septum intact. The aortic valve is trileaflet, and appears structurally normal. No aortic stenosis or regurgitation. The mitral valve is normal. Mild mitral regurgitation is present. The tricuspid valve appears structurally normal. No regurgitation noted Trace/mild (physiologic) pulmonic regurgitation. The aortic root size is normal. Normal inferior vena cava with normal inspiratory collapse consistent with estimated right atrial pre ssure of 5 mmHg. There is no pericardial effusion. CONCLUSIONS -------- 1. Sinus rhythm. 2. This was a technically good study. 3. The left ventricular size is normal. 4. There is moderate concentric left ventricular hypertrophy. 5. Overall left ventricular systolic function is normal with, an EF between 55 - 60 %. 6. Normal LA size by volume 22+/-6 ml/m2. 7. Interatrial and interventricular septum intact. 8. The aortic valve is trileaflet, and appears structurally normal. No aortic stenosis or regurgitati on. 9. The mitral valve is normal. 10. Mild mitral regurgitation is present. 11. The tricuspid valve appears structurally normal. 12. Trace/mild (physiologic) pulmonic regurgitation. 13. The aortic root size is normal. 14. Normal inferior vena cava with normal inspiratory collapse consistent with estimated right atrial pressure of 5 mmHg. 15. There is no pericardial effusion. SOAKER HELPER: Alayna Hernandez RDCS
[2018-06-24] MEDS: NICOTINE 21MG/24HR PATCH TRANSDERM SCH (17:18)
[2018-06-24 20:29] LABS: Hemoglobin A1C 5.8 % (4.0-6.0)
[2018-06-24] MEDS: METOPROLOL TARTRATE 25 MG TAB PO SCH (21:30)
[2018-06-24] MEDS: cloNIDine HCL 0.1 MG TAB PO SCH (21:30)
[2018-06-24] MEDS: ZOLPIDEM 5 MG TAB PO PRN (22:23)
--- NOTE | 2018-06-24 22:27 | P.HPIM ---
History of Present Illness H&P Date: 06/24/18 Chief Complaint: ST elevation HI Mr. Blair is a 53-year-old male with a past medical history of hypertension, chronic smoker 1-1-1/2 packs per day coming into the hospital with a chief complaint of chest pain. Patient states that he had chest pain that woke him up from sleep it was mostly retrosternal 9 out of 10 associated with mild difficulty in breathing. Patient denies having any diaphoresis nausea and vomiting at that time. But he mentions that he felt like a rock sitting on his chest. He took aspirin and called EMS. Patient received a dose of nitroglycerin and talked to the hospital. In the ED patient had an EKG showing ST elevation in leads II , III and aVF. So Maitre D' was alerted for STEMI. He was taken to the director geophysical laboratory by Dr. Polo. There was 100% occlusion of RCA and he had drug eluting stent placed. Currently the patient is in the ICU. He is sitting up in a chair by the bedside. He denies having any chest pain. No difficulty in breathing. Patient denies having any abdominal pain nausea vomiting or diarrhea. No dysuria or hematuria. No loss of consciousness. No headaches or blurring of vision. No weakness of his extremities. Patient has history of chronic low back pain and he caught an epidural injection done yesterday. All 13 review of systems are negative except for the ones mentioned about Past Medical History Past Medical History: Chest Pain / Angina, GERD/Reflux, Hypertension, Osteoarthritis (OA) Additional Past Medical History / Comment(s): varicose veins, History of Any Multi-Drug Resistant Organisms: None Reported Past Surgical History: Cholecystectomy, Orthopedic Surgery, Tonsillectomy Additional Past Surgical History / Comment(s): ACL left knee, Laser surgery to open arteries in selena legs, Past Anesthesia/Blood Transfusion Reactions: No Reported Reaction Past Psychological History: Anxiety Smoking Status: Current every day smoker Past Alcohol Use History: None Reported Past Drug Use History: Marijuana - Past Family History Mother Family Medical History: No Reported History Medications and Allergies Home Medications Medication Instructions Recorded Confirmed Type Metoprolol Tartrate [Lopressor] 50 mg PO BID 03/24/15 06/24/18 History amLODIPine [Norvasc] 10 mg PO DAILY 03/24/15 06/24/18 History cloNIDine HCL [Catapres] 0.3 mg PO BID 03/24/15 06/24/18 History Pramipexole [Mirapex] 0.5 mg PO HS 01/10/18 06/24/18 History ALPRAZolam [Xanax] 0.5 - 1 mg PO DAILY PRN 06/24/18 06/24/18 History Aspirin 325 mg PO DAILY 06/24/18 06/24/18 History Aspirin EC [Ecotrin] 650 mg PO ONCE PRN 06/24/18 06/24/18 History Omeprazole 20 mg PO BID 06/24/18 06/24/18 History Allergies Allergy/AdvReac Type Severity Reaction Status Date / Time morphine topical Allergy blisteres,h Uncoded 06/24/18 10:15 karen Physical Exam Vitals: Vital Signs Temp Pulse Resp BP Pulse Ox 06/24/18 19:00 72 12 128/90 95 06/24/18 18:00 72 19 110/89 93 L 06/24/18 17:00 77 22 134/87 91 L 06/24/18 16:30 74 15 134/87 92 L 06/24/18 16:00 98.2 F 81 19 119/82 95 06/24/18 15:30 76 20 119/82 95 06/24/18 15:00 73 12 115/77 95 06/24/18 14:30 75 18 123/74 94 L 06/24/18 14:00 71 16 116/82 95 06/24/18 13:30 75 17 127/82 94 L 06/24/18 13:00 78 18 130/82 94 L 06/24/18 12:50 80 17 130/82 95 06/24/18 12:40 88 14 130/82 95 06/24/18 12:30 89 20 145/87 94 L 06/24/18 12:20 80 17 145/87 93 L 06/24/18 12:10 96 36 H 142/97 91 L 06/24/18 12:00 98.1 F 86 10 L 147/95 93 L 06/24/18 11:59 88 20 93 L 06/24/18 10:41 96 18 153/88 98 06/24/18 10:31 101 H 18 149/88 96 06/24/18 10:16 105 H 18 179/96 100 06/24/18 10:09 98.1 F 110 H 18 176/107 100 Intake and Output 06/24/18 06/24/18 06/24/18 06:59 14:59 22:59 Intake Total 429.7 900 Output Total 400 300 Balance 29.7 600 Intake: IV 429.7 500 0.9 NACL 300 500 Oral 400 Output: Urine 400 300 Other: Weight 77.111 kg GEN. APPEARANCE: alert, in no apparent distress HEENT - no pallor. No icterus. NECK EXAM: normal inspection. Absent: tenderness, meningismus, full ROM, lymphadenopathy RESPIRATORY EXAM: Coarse breath sounds bilaterally. No wheeze or crackles. CARDIOVASCULAR EXAM: regular rate, normal rhythm, normal heart sounds. Absent: systolic murmur, diastolic murmur, rubs, gallop, clicks GI/ABDOMINAL EXAM: soft, normal bowel sounds. Absent: distended, tenderness, guarding, rebound, rigid EXTREMITIES EXAM: No edema. Site on the right upper extremity looks good, no bleeding noticed. NEUROLOGICAL EXAM: alert, oriented X3, no focal deficits. PSYCHIATRIC EXAM: normal affect, normal mood SKIN EXAM: warm, dry, intact, normal color. Absent: rash Results CBC & Chem 7: 06/24/18 10:10 06/24/18 10:10 Labs: Abnormal Lab Results - Last 24 Hours (Table) 06/24/18 06/24/18 06/24/18 Range/Units 10:10 10:10 10:10 WBC 15.9 H (3.8-10.6) k/uL Neutrophils # 12.7 H (1.3-7.7) k/uL Creatinine 0.59 L (0.66-1.25) mg/dL Glucose 126 H (74-99) mg/dL POC Glucose (mg/dL) (75-99) mg/dL Calcium 10.3 H (8.4-10.2) mg/dL Creatine Kinase (55-170) U/L Total Creatine Kinase 210 H (55-170) U/L CK-MB (CK-2) 11.4 H (0.0-2.4) ng/mL Troponin I 1.600 H* (0.000-0.034) ng/mL LDL Cholesterol, Calc (0-99) mg/dL 06/24/18 06/24/18 06/24/18 Range/Units 10:10 11:57 15:52 WBC (3.8-10.6) k/uL Neutrophils # (1.3-7.7) k/uL Creatinine (0.66-1.25) mg/dL Glucose (74-99) mg/dL POC Glucose (mg/dL) 120 H (75-99) mg/dL Calcium (8.4-10.2) mg/dL Creatine Kinase 213 H (55-170) U/L Total Creatine Kinase (55-170) U/L CK-MB (CK-2) (0.0-2.4) ng/mL Troponin I 2.620 H* (0.000-0.034) ng/mL LDL Cholesterol, Calc 107 H (0-99) mg/dL Thrombosis Risk Factor Assmnt - Choose All That Apply Any of the Below Risk Factors Present?: Yes Each Factor Represents 1 point: Acute HI, Age 41-60 years, Medical pt on bed rest Other Risk Factors: Yes Each Risk Factor Represents 2 Points: Patient confined to bed Other congenital or acquired thrombophilia - If yes, enter type in comment: No Thrombosis Risk Factor Assessment Total Risk Factor Score: 5 Thrombosis Risk Factor Assessment Level: High Risk Assessment and Plan Assessment: ASSESSMENT ST elevation HI Stenting of the RCA Hypertension Chronic nicotine dependence- [id number] Family history of coronary artery disease PLAN: Patient had stenting of his RCA with drug-eluting stent. He has been started on aspirin, statin, BHAVANA inhibitor, beta pat. He has been also started on Effien. Patient states that he has a lot of financial issues and that he has to go to his job on Tuesday or as he is going to lose his job. So we will have social security benefits interviewer consult placed to address these issues. Continue with the current medication regimen. Further recommendations to follow depending on the progress of the patient.
[2018-06-25 05:12] LABS: HCT 47.3 % (39.0-53.0); HGB 15.1 gm/dL (13.0-17.5); MCH 30.5 pg (25.0-35.0); MCHC 31.9 g/dL (31.0-37.0); MCV 95.5 fL (80.0-100.0); Mean Platelet Volume 6.2; Platelet Count 268 k/uL (150-450); RBC 4.95 m/uL (4.30-5.90); RDW 15.1 % (11.5-15.5); WBC 11.4 k/uL (3.8-10.6)
[2018-06-25 05:30] LABS: Anion Gap 5 mmol/L; Blood Urea Nitrogen 15 mg/dL (9-20); Carbon Dioxide 27 mmol/L (22-30); Chloride 105 mmol/L (98-107); Glucose 106 mg/dL (74-99); Potassium 4.4 mmol/L (3.5-5.1); Sodium 137 mmol/L (137-145)
--- NOTE | 2018-06-25 08:22 | PN ---
PROGRESS NOTE Mr. Blair is a 53-year-old male who presented yesterday with an acute inferior myocardial infarction, underwent stenting of the right coronary artery. He is doing well this morning. He is denying any chest pain. His breathing has been stable. He denies any dizziness or palpitations. He denies any nausea. He is quite anxious to go home. He continues to be on aspirin once a day, Effient 10 mg daily, Lipitor 80 mg daily, clonidine 0.1 mg twice a day, Zestril 10 mg twice a day, metoprolol tartrate 25 mg twice a day, and nicotine patch. PHYSICAL EXAMINATION: Blood pressure 137/90 with a heart rate in the 70s. LUNGS: Clear. HEART: Regular rate and rhythm S1, S2. No S3. No rub. ABDOMEN: Soft, nontender. EXTREMITIES: No edema. LAB DATA: Lab data revealed BUN and creatinine 15 and 0.55, potassium 4.4, hemoglobin 15.1. Peak troponin 2.6. Echocardiogram showed a preserved systolic function with mild mitral regurgitation. IMPRESSION: 1. Status post inferior myocardial infarction status post stenting of the RCA. 2. Chronic tobacco use. 3. Hypertension. RECOMMENDATION: We will increase his level of activity. Transfer him to telemetry floor. If remains stable, I would expect he should be able to be discharged home tomorrow. The importance of smoking cessation was discussed with him. HOPE / PERFECTO: [id number] /
[2018-06-25] MEDS: METOPROLOL TARTRATE 25 MG TAB PO SCH ×2 (09:45→20:35)
[2018-06-25] MEDS: NICOTINE 21MG/24HR PATCH TRANSDERM SCH (09:45)
[2018-06-25] MEDS: amLODIPine 10 MG TAB PO SCH (09:45)
[2018-06-25] MEDS: ASPIRIN 81 MG PO SCH (09:45)
[2018-06-25] MEDS: LISINOPRIL 10 MG TAB PO SCH ×2 (09:45→20:35)
[2018-06-25] MEDS: cloNIDine HCL 0.1 MG TAB PO SCH ×2 (09:45→20:35)
[2018-06-25] MEDS: PRASUGREL 10 MG TAB PO SCH (09:45)
[2018-06-25] MEDS: ALPRAZolam 0.5 MG TAB PO PRN ×2 (09:54→22:14)
[2018-06-25 11:57] VITALS: BMI 30.9
--- NOTE | 2018-06-25 17:07 | P.PN ---
Subjective Progress Note Date: 06/25/18 Principal diagnosis: ST elevation OR Mr. Blair is a 53-year-old male with a past medical history of hypertension, chronic smoker 1-1-1/2 packs per day coming into the hospital with a chief complaint of chest pain. Patient states that he had chest pain that woke him up from sleep it was mostly retrosternal 9 out of 10 associated with mild difficulty in breathing. Patient denies having any diaphoresis nausea and vomiting at that time. But he mentions that he felt like a rock sitting on his chest. He took aspirin and called EMS. Patient received a dose of nitroglyceri n and talked to the hospital. In the ED patient had an EKG showing ST elevation in leads II , III and aVF. So Electrolysis Operator was alerted for STEMI. He was taken to the central lab technician by Dr. Polo. There was 100% occlusion of RCA and he had drug eluting stent placed. On 06/25/2018 - patient is sitting up in his bed comfortably reading the newspaper. Doesn't appear to be in acute distress. Patient denies having any chest pain or palpitations. He mentions that the chest pressure he had for the past couple of the days is completely resolved. He feels good about it. Patient denies having any difficulty in breathing. No abdominal pain nausea vomiting or diarrhea. No dysuria or hematuria. Patient's medications have been reviewed. Objective - Vital Signs Vital signs: Vital Signs Temp 98.1 F 06/25/18 12:00 Pulse 86 06/25/18 12:00 Resp 11 L 06/25/18 12:00 BP 135/84 06/25/18 12:00 Pulse Ox 95 06/25/18 12:00 Intake & Output 06/24/18 06/25/18 06/25/18 18:59 06:59 18:59 Intake Total 1229.7 500 400 Output Total 700 1450 650 Balance 529.7 -950 -250 Weight 77.111 kg 81.6 kg 81.6 kg Intake: IV 829.7 300 0.9 NACL 700 300 Oral 400 200 400 Output: Urine 700 1450 650 - Exam GEN. APPEARANCE: alert, in no apparent distress HEENT - no pallor. No icterus. NECK EXAM: normal inspection. Absent: tenderness, meningismus, full ROM, lymphadenopathy RESPIRATORY EXAM: Coarse breath sounds bilaterally. No wheeze or crackles. CARDIOVASCULAR EXAM: regular rate, normal rhythm, normal heart sounds. Absent: systolic murmur, diastolic murmur, rubs, gallop, clicks GI/ABDOMINAL EXAM: soft, normal bowel sounds. Absent: distended, tenderness, guarding, rebound, rigid EXTREMITIES EXAM: No edema. Site on the right upper extremity looks good, no bleeding noticed. NEUROLOGICAL EXAM: alert, oriented X3, no focal deficits. PSYCHIATRIC EXAM: normal affect, normal mood SKIN EXAM: warm, dry, intact, normal color. Absent: rash - Labs CBC & Chem 7: 06/25/18 04:29 06/25/18 04:29 Labs: Abnormal Lab Results - Last 24 Hours (Table) 06/24/18 06/24/18 06/25/18 Range/Units 15:52 21:35 04:29 WBC (3.8-10.6) k/uL Creatinine 0.55 L (0.66-1.25) mg/dL Glucose 106 H (74-99) mg/dL Troponin I 2.620 H* 1.950 H* (0.000-0.034) ng/mL 06/25/18 Range/Units 04:29 WBC 11.4 H (3.8-10.6) k/uL Creatinine (0.66-1.25) mg/dL Glucose (74-99) mg/dL Troponin I (0.000-0.034) ng/mL Assessment and Plan Assessment: ASSESSMENT ST elevation OR Stenting of the RCA Hypertension Chronic nicotine dependence- [id number] Family history of coronary artery disease PLAN: Patient had stenting of his RCA with drug-eluting stent. He has been started on aspirin, statin, BHAVANA inhibitor, beta pat. He has been also started on Effient. metal storage worker consult placed, as the patient has a lot of financial issues, to get his heart medications. Continue with the current medication regimen. Further recommendations to follow depending on the progress of the patient.
[2018-06-25] MEDS ORDERED: ATORVASTATIN 80 MG TAB PO SCH (21:00)
[2018-06-25] MEDS: ZOLPIDEM 5 MG TAB PO PRN (22:14)
[2018-06-26 04:03] VITALS: BP 117/67
--- NOTE | 2018-06-26 08:17 | PN ---
PROGRESS NOTE Mr. Blair is a 53-year-old male who presented with ST-segment elevation myocardial infarction in the inferior leads, underwent stenting of the RCA. He has a history of hypertension and chronic tobacco use. He is feeling well this morning. He is denying any chest pain. His breathing has been stable. He denies any dizziness or palpitation. Hemodynamically, he is stable. He continues to be in sinus mechanism. He continued be on amlodipine 10 mg daily, aspirin 81 mg daily, Lipitor 80 mg daily, clonidine 0.1 mg twice a day, lisinopril 10 mg twice a day, metoprolol tartrate 25 mg twice a day. PHYSICAL EXAMINATION: Blood pressure 117/60 with the heart rate in the 60s. LUNGS: Clear. HEART: Regular rate and rhythm. S1, S2. No S3. No rub. ABDOMEN: Soft, nontender. EXTREMITIES: No edema. IMPRESSION: 1. Status post inferior myocardial infarction with stenting of the RCA, stable. 2. Hypertension. 3. Prior history of smoking. RECOMMENDATION: Patient should be able to be discharged home today and followed as an outpatient in one week. He will continue to be on the Effient. MMODL / IJN: [id number] /
[2018-06-26] MEDS: METOPROLOL TARTRATE 25 MG TAB PO SCH (08:41)
[2018-06-26] MEDS: ASPIRIN 81 MG PO SCH (08:42)
[2018-06-26] MEDS: amLODIPine 10 MG TAB PO SCH (08:42)
[2018-06-26] MEDS: PRASUGREL 10 MG TAB PO SCH (08:42)
[2018-06-26] MEDS ORDERED: LOSARTAN 50 MG TAB PO SCH (09:00)
[2018-06-26 11:24] VITALS: PULSE 75; RESP 17; TEMP 97.4
--- NOTE | 2018-06-26 12:53 | P.DS ---
Providers Date of admission: 06/24/18 10:48 Expected date of discharge: 06/26/18 Attending physician: Franny Ireland Consults: 06/24/18 10:49 Consult Physician Stat Consulting Provider: Alex Polo Consult Reason/Comments: STEMI Do you want consulting provider notified?: Already Contacted 06/24/18 11:37 Consult Physician Routine Consulting Provider: [facility] Consult Reason/Comments: Post Interventional patient Do you want consulting provider notified?: Already Contacted Primary care physician: Rosa Jonas [facility] Course: Mr. Blair is a 53-year-old male with a past medical history of hypertension, chronic smoker 1-1-1/2 packs per day coming into the hospital with a chief complaint of chest pain. Patient states that he had chest pain that woke him up from sleep it was mostly retrosternal 9 out of 10 associated with mild difficulty in breathing. Patient denies having any diaphoresis nausea and vomiting at that time. But he mentions that he felt like a rock sitting on his chest. He took aspirin and called EMS. Patient received a dose of nitroglycerin and talked to the hospital. In the ED patient had an EKG showing ST elevation in leads II , III and aVF. So Emergency Doctor was alerted for STEMI. He was taken to the asphalt plant laborer by Dr. Polo. There was 100% occlusion of RCA and he had drug eluting stent placed. Patient was shifted to the ICU after he had the drug eluting stent placed. He was monitored in the ICU for a day. He has been cleared by cardiology to be discharged home. Patient is being discharged home on aspirin, statin, BHAVANA inhibitor, beta pat. His home blood pressure medications Norvasc, and Catapres have been discontinued. He was given extensive counseling regarding smoking cessation. And also regarding being compliant with his medications as he has a stent placed. He is advised to follow-up with his primary care doctor in 2-3 days. GEN. APPEARANCE: alert, in no apparent distress, eating in the bed comfortably. at the bedside. RESPIRATORY EXAM: biLateral breath sounds positive. No wheeze or crackles. CARDIOVASCULAR EXAM: S1-S2 heard. No additional sounds. GI/ABDOMINAL EXAM: Soft nontender. Bowel sounds positive EXTREMITIES EXAM: No pedal edema. DISCHARGE DIAGNOSIS ST elevation VA Stenting of the RCA Hypertension Chronic nicotine dependence- [id number] Family history of coronary artery disease PLAN: Patient is being discharged home in a stable condition. irrigation worker and geriatric case manager on board, helping him to get his discharge medications. More than 45 min spent to discharge the pt. Patient Condition at Discharge: Fair Plan - Discharge Summary Discharge Rx Participant: No New Discharge Prescriptions: New Aspirin 81 mg PO DAILY chew Prasugrel [Effient] 10 mg PO DAILY #90 tab Atorvastatin [Lipitor] 80 mg PO HS #90 tab Metoprolol Tartrate [Lopressor] 25 mg PO BID #180 tab Nitroglycerin Sl Tabs [Nitrostat] 0.4 mg SUBLINGUAL Q5M PRN #25 tab PRN Reason: Chest Pain Losartan [Cozaar] 100 mg PO DAILY #90 tab Zolpidem [Ambien] 5 mg PO HS PRN #3 tab PRN Reason: Insomnia Continue Pramipexole [Mirapex] 0.5 mg PO HS ALPRAZolam [Xanax] 0.5 - 1 mg PO DAILY PRN PRN Reason: Anxiety Omeprazole 20 mg PO BID Discontinued cloNIDine HCL [Catapres] 0.3 mg PO BID amLODIPine [Norvasc] 10 mg PO DAILY Metoprolol Tartrate [Lopressor] 50 mg PO BID Aspirin EC [Ecotrin] 650 mg PO ONCE PRN PRN Reason: Pain Aspirin 325 mg PO DAILY Discharge Medication List Pramipexole [Mirapex] 0.5 mg PO HS 01/10/18 [History] ALPRAZolam [Xanax] 0.5 - 1 mg PO DAILY PRN 06/24/18 [History] Omeprazole 20 mg PO BID 06/24/18 [History] Aspirin 81 mg PO DAILY chew 06/26/18 [Rx] Atorvastatin [Lipitor] 80 mg PO HS #90 tab 06/26/18 [Rx] Losartan [Cozaar] 100 mg PO DAILY #90 tab 06/26/18 [Rx] Metoprolol Tartrate [Lopressor] 25 mg PO BID #180 tab 06/26/18 [Rx] Nitroglycerin Sl Tabs [Nitrostat] 0.4 mg SUBLINGUAL Q5M PRN #25 tab 06/26/18 [Rx] Prasugrel [Effient] 10 mg PO DAILY #90 tab 06/26/18 [Rx] Zolpidem [Ambien] 5 mg PO HS PRN #3 tab 06/26/18 [Rx] Follow up Appointment(s)/Referral(s): Alex Polo MD [STAFF PHYSICIAN] - 1 Week Steffi Lee MD [Primary Care Provider] - 1-2 days Activity/Diet/Wound Care/Special Instructions: Pt needs indigents funds for rx copay at discharge. See geriatric case manager. Discharge Disposition: HOME SELF-CARE
[2018-06-26] MEDS: NICOTINE 21MG/24HR PATCH TRANSDERM SCH (13:56)
[2018-06-26] MEDS ORDERED: cloNIDine HCL 0.1 MG TAB PO SCH (21:00)
== END 2018-06-26 15:05 | disposition home or self-care (01) | DRG 247 ==
LOC: EC 10:04 → 2SICU 10:48
PROVIDERS: ADMIT Internal Medicine; ATTEND Internal Medicine
PROC: B2111ZZ Fluoroscopy of Multiple Coronary Arteries using Low Osmolar Contrast (ICD-10-PCS; 2018-06-24)
PROC: B2151ZZ Fluoroscopy of Left Heart using Low Osmolar Contrast (ICD-10-PCS; 2018-06-24)
PROC: 027034Z Dilation of Coronary Artery, One Artery with Drug-eluting Intraluminal Device, Percutaneous Approach (ICD-10-PCS; principal; 2018-06-24 10:46)
PROC: 4A023N7 Measurement of Cardiac Sampling and Pressure, Left Heart, Percutaneous Approach (ICD-10-PCS; 2018-06-24 10:46)
DX: I21.19 ST elevation (STEMI) myocardial infarction involving other coronary artery of inferior wall (principal); I42.9 Cardiomyopathy, unspecified; I25.10 Atherosclerotic heart disease of native coronary artery without angina pectoris; F41.9 Anxiety disorder, unspecified; I10 Essential (primary) hypertension; K21.9 Gastro-esophageal reflux disease without esophagitis; G89.29 Other chronic pain; M54.5 Low back pain; I83.90 Asymptomatic varicose veins of unspecified lower extremity; M19.90 Unspecified osteoarthritis, unspecified site; F17.210 Nicotine dependence, cigarettes, uncomplicated; Z79.82 Long term (current) use of aspirin; Z79.899 Other long term (current) drug therapy; Z88.5 Allergy status to narcotic agent; Z90.49 Acquired absence of other specified parts of digestive tract; Z91.19 Patient's noncompliance with other medical treatment and regimen; Z82.49 Family history of ischemic heart disease and other diseases of the circulatory system; Z71.6 Tobacco abuse counseling
CPT/HCPCS: 36415; 71045; 80048; 80053; 80061; 82150; 82550; 82553; 83036; 83690; 83735; 83880; 84484; 85025; 85027; 85347; 85379; 85610; 85730; 93005; 93306; 93458; 96374; 99291; C1874

== ENCOUNTER → 2018-10-03 | Outpatient (CLI) | payer BC ==
[2018-10-04 00:20] LABS: African American GFR (CKD) 117.4 (60.0-200.0); Albumin 4.7 g/dL (3.80-4.90); Albumin/Globulin Ratio 2.61 (1.60-3.17); Anion Gap 9.8 mmol/L (4.00-12.00); Calcium 9.7 mg/dL (8.7-10.3); Carbon Dioxide 27.2 mmol/L (21.6-31.8); Chol/HDL Ratio 3.23; Globulin 1.8 g/dL (1.6-3.3); LDL Cholesterol,Calculated 54.4 mg/dL (0.0-131.0); Potassium 3.8 mmol/L (3.5-5.5); Total Bilirubin 0.3 mg/dL (0.2-1.2); Total Protein 6.5 g/dL (6.2-8.2); VLDL Calculation 32.6 mg/dL (5.00-40.00)
== END | disposition home or self-care (01) ==
LOC: LABWHC1 16:43
PROVIDERS: ATTEND Internal Medicine Interventional Cardiology
DX: E78.2 Mixed hyperlipidemia (principal)
CPT/HCPCS: 36415; 80053; 80061

== ENCOUNTER 2018-11-08 06:51 | Day surgery (SDC) | payer SELFPAY ==
[2018-11-06 09:45] VITALS: BMI 29.8
[~2018-11-08 06:51] MED LIST changes: -ACETAMINOPHEN IV (For NPO) 1,000 MG in EMPTY BAG 1 BAG IVPB ONE; +ALPRAZolam 0.25 MG TAB PO PRN; -HEPARIN SODIUM,PORCINE 5,000 UNIT/ML 1 ML VIAL SQ ONE; +SODIUM CHLORIDE 0.9% 1,000 ML in EMPTY BAG 1 BAG IV ONE; -ceFAZolin IN SWFI 2 GM/20 ML SYRINGE IVP ONE
[2018-11-08] MEDS ORDERED: ASPIRIN 325 MG TAB PO ONE (07:00)
[2018-11-08 07:13] VITALS: TEMP 97.8
[2018-11-08 07:26] LABS: Basophils # (A) 0.1 k/uL (0-0.2); Basophils % (A) 1 %; Eosinophils # (A) 0.3 k/uL (0-0.7); Eosinophils % (A) 4 %; HCT 41.6 % (39.0-53.0); HGB 14.3 gm/dL (13.0-17.5); Lymphocytes # (A) 2.4 k/uL (1.0-4.8); Lymphocytes % (A) 32 %; MCH 33.2 pg (25.0-35.0); MCHC 34.4 g/dL (31.0-37.0); MCV 96.5 fL (80.0-100.0); Mean Platelet Volume 6.4; Monocytes # (A) 0.6 k/uL (0-1.0); Monocytes % (A) 8 %; Neutrophils % (A) 52 %; Platelet Count 317 k/uL (150-450); RBC 4.31 m/uL (4.30-5.90); WBC 7.6 k/uL (3.8-10.6)
[2018-11-08 07:36] LABS: African American GFR (CKD) >90 (>60 ml/min/1.73 sqM); Anion Gap 10 mmol/L; Blood Urea Nitrogen 25 mg/dL (9-20); Calcium 9.9 mg/dL (8.4-10.2); Carbon Dioxide 28 mmol/L (22-30); Chloride 101 mmol/L (98-107); Glucose 112 mg/dL (74-99); Potassium 3.1 mmol/L (3.5-5.1); Sodium 139 mmol/L (137-145)
[2018-11-08] MEDS ORDERED: MIDAZOLAM (PF) 2 MG/2 ML VIAL IV ONE (07:55)
[2018-11-08] MEDS ORDERED: LIDOCAINE 1% INJ 10MG/ML (20 ML MDV) SQ ONE (07:56)
[2018-11-08] MEDS ORDERED: IOPAMIDOL-370 50ML BTL INJ ONE (08:14)
[2018-11-08] MEDS ORDERED: IOPAMIDOL-300 100ML BTL INJ ONE (08:14)
[2018-11-08] MEDS ORDERED: SODIUM CHLORIDE 0.9% 1,000 ML IV SCH (08:30)
[2018-11-08 08:48] VITALS: RESP 16
[2018-11-08] MEDS ORDERED: POTASSIUM CHLORIDE ER 20 MEQ TAB.ER PO STA (10:50)
--- NOTE | 2018-11-08 11:47 | IR ---
EXAMINATION TYPE: IR angio abdominal w runoff DATE OF EXAM: 11/08/2018 COMPARISON: NONE HISTORY: Fluoroscopy time. Fluoroscopy was provided to the referring clinician. 1.2 minutes of fluoroscopy provided.
--- NOTE | 2018-11-08 12:54 | AN ---
ANGIOGRAPHY REPORT DATE OF SERVICE: November 08, 2018 PERFORMING PHYSICIAN: Freddy De La Cruz MD, storage center manager. PROCEDURE PERFORMED: 1. An abdominal aortogram. 2. Bilateral lower extremities runoff. INDICATION: This is a very pleasant 53-year-old gentleman who sees Dr. Polo in the office as an outpatient who was experiencing bilateral lower extremities intermittent claudication, worse on the left side than the right underwent an arterial duplex study which revealed occluded left SFA and intermediate to severe disease involving the right SFA. Because of that an aortogram with runoff was advised. APPROACH: Right common femoral artery. COMPLICATION: None. LEVEL OF SEDATION: Moderate with sedation length of 18 minutes. PROCEDURE DESCRIPTION: After obtaining an informed consent, the patient was brought to the cardiac laborer fryer farm. The right common femoral artery was cannulated using micropuncture technique, the micropuncture wire passed easily then I placed a 5-Bruneian sheath. I did an abdominal aortogram and bilateral lower extremities runoff using a pigtail catheter which was initially placed at the level of the renal arteries then it was pulled into above the bifurcation of the aorta to right and left common iliac arteries. The procedure was completed without any complication. SELECTIVE PERIPHERAL ANGIOGRAM: 1. The aorta appeared to have mild disease only. 2. Common Iliac Arteries: Both are patent. 3. Internal Iliac Arteries: Both are patent. 4. External Iliac Arteries: Both are angiographically normal. 5. Common Femoral Arteries: Both appear to have mild disease only. 6. Profunda: Both are patent. 7. SFA: The right SFA has intermediate to severe lesion in the distal portion. The left SFA is occluded on the long segment, extends from the proximal all the way to the Anson canal. 8. Popliteal: Both popliteals appeared to be angiographically normal. 9. Below the knee: There are 3 vessels runoff below the knee bilaterally. CONCLUSION: 1. Normal aortoiliac segments. 2. Severe femoral-popliteal disease with occluded left SFA and intermediate to severe disease involving the right SFA. 3. Three vessels runoff below the knee bilaterally. POSTPROCEDURE MANAGEMENT: The patient will be scheduled to undergo a MEDICAL PHYSICS RESEARCHER of the left SFA and we will assess for the symptoms on the left side to decide about a MEDICAL PHYSICS RESEARCHER of the right SFA. MMODL / IJN: [id number] /
[2018-11-08 14:22] VITALS: BP 135/72; PULSE 68
== END 2018-11-08 14:23 | disposition home or self-care (01) ==
LOC: CATHCVL 06:51
PROVIDERS: ATTEND Internal Medicine Interventional Cardiology
DX: I70.213 Atherosclerosis of native arteries of extremities with intermittent claudication, bilateral legs (principal); I10 Essential (primary) hypertension; I25.10 Atherosclerotic heart disease of native coronary artery without angina pectoris; E78.5 Hyperlipidemia, unspecified; F17.210 Nicotine dependence, cigarettes, uncomplicated; Z79.82 Long term (current) use of aspirin; Z79.899 Other long term (current) drug therapy; Z88.5 Allergy status to narcotic agent; Z82.49 Family history of ischemic heart disease and other diseases of the circulatory system
CPT/HCPCS: 36200; 75625; 75716; 80048; 83735; 85025; C1894; C1769 ×3; J2001; Q9967 ×2; J2250

== ENCOUNTER → 2018-11-13 | Outpatient (CLI) | payer BC ==
[2018-11-14 00:40] LABS: African American GFR (CKD) 117.4 (60.0-200.0); Anion Gap 8.8 mmol/L (4.00-12.00); BUN/Creat Ratio 17.5 Ratio (12.00-20.00); Calcium 9.1 mg/dL (8.7-10.3); Carbon Dioxide 27.2 mmol/L (21.6-31.8); Potassium 3.5 mmol/L (3.5-5.5)
== END | disposition home or self-care (01) ==
LOC: LABWHC1 16:32
PROVIDERS: ATTEND Nurse Practitioner Adult Health
DX: E87.6 Hypokalemia (principal)
CPT/HCPCS: 36415; 80048

== ENCOUNTER 2018-11-15 13:43 | Day surgery (SDC) | payer BC ==
[~2018-11-15 13:43] MED LIST changes: -ALPRAZolam 0.25 MG TAB PO PRN
[2018-11-15] MEDS ORDERED: ALPRAZolam 0.5 MG TAB ONE (13:56)
[2018-11-15 14:17] LABS: Basophils # (A) 0.1 k/uL (0-0.2); Basophils % (A) 1 %; Eosinophils # (A) 0.2 k/uL (0-0.7); Eosinophils % (A) 2 %; HCT 42.5 % (39.0-53.0); HGB 14.6 gm/dL (13.0-17.5); Lymphocytes # (A) 2.4 k/uL (1.0-4.8); Lymphocytes % (A) 23 %; MCH 33.5 pg (25.0-35.0); MCHC 34.4 g/dL (31.0-37.0); MCV 97.5 fL (80.0-100.0); Mean Platelet Volume 5.7; Monocytes # (A) 0.5 k/uL (0-1.0); Monocytes % (A) 4 %; Neutrophils % (A) 68 %; Platelet Count 374 k/uL (150-450); RBC 4.36 m/uL (4.30-5.90); RDW 12.9 % (11.5-15.5); WBC 10.3 k/uL (3.8-10.6)
[2018-11-15 14:29] LABS: African American GFR (CKD) >90 (>60 ml/min/1.73 sqM); Anion Gap 10 mmol/L; Blood Urea Nitrogen 12 mg/dL (9-20); Calcium 9.8 mg/dL (8.4-10.2); Carbon Dioxide 26 mmol/L (22-30); Chloride 102 mmol/L (98-107); Glucose 120 mg/dL (74-99); Non-African American GFR(CKD) >90 (>60 ml/min/1.73 sqM); Potassium 3.4 mmol/L (3.5-5.1); Sodium 138 mmol/L (137-145)
[2018-11-15] MEDS ORDERED: SODIUM CHLORIDE 0.9% 500 ML 500 ML with niCARdipine 6.25 MG, NITROGLYCERIN-D5W PMX 0.05... IV ONE ×4 (15:30)
[2018-11-15] MEDS ORDERED: MIDAZOLAM PF (FBP) 2 MG/2 ML VIAL IV ONE (15:34)
[2018-11-15] MEDS ORDERED: LIDOCAINE 1% INJ 10MG/ML (20 ML MDV) SQ ONE (15:36)
[2018-11-15] MEDS ORDERED: HYDROmorphone 1 MG/ML 1 ML SYRINGE IVP ONE ×2 (15:44→17:03)
[2018-11-15] MEDS ORDERED: HEPARIN SODIUM 1,000 UN/ML (10ML VL) IV ONE (15:45)
[2018-11-15] MEDS: MIDAZOLAM PF (FBP) 2 MG/2 ML VIAL IV ONE ×2 (15:45→15:55)
[2018-11-15] MEDS ORDERED: NITROGLYCERIN 1000MCG/10ML SYRINGE INTRAARTER ONE (16:57)
[2018-11-15] MEDS ORDERED: niCARdipine Syringe (1,000 mcg/10 mL) INTRAARTER ONE (16:58)
[2018-11-15] MEDS ORDERED: NITROGLYCERIN SL TABS 0.4 MG TAB SUBLINGUAL PRN (17:07)
[2018-11-15] MEDS ORDERED: IOPAMIDOL-250 100ML BTL INTRAARTER ONE (17:14)
[2018-11-15] MEDS ORDERED: SODIUM CHLORIDE 0.9% 1,000 ML IV SCH (17:15)
--- NOTE | 2018-11-15 18:12 | IR ---
EXAMINATION TYPE: IR stent intravas non coronary DATE OF EXAM: 11/15/2018 CLINICAL HISTORY: Peripheral vascular disease. TECHNIQUE: Fluoroscopy. COMPARISON: None. FINDINGS: Fluoroscopic guidance was provided during lower extremity angiogram with arterial stent pl acement procedure performed by Dr. De La Cruz. A total of 22.7 minutes of fluoroscopic time was utilized d uring the procedure and multiple spot images are acquired. Imaging is performed over the left leg. Pl ease refer to procedure note for further details as I was not present nor performed procedure. IMPRESSION: As Above.
[2018-11-15 18:14] VITALS: BMI 29.4
[2018-11-15] MEDS: METOPROLOL TARTRATE 25 MG TAB PO SCH (20:17)
[2018-11-15] MEDS ORDERED: ACETAMINOPHEN TAB 500 MG TAB PO PRN (20:32)
[2018-11-15] MEDS ORDERED: ATORVASTATIN 80 MG TAB PO SCH (21:00)
[2018-11-15] MEDS ORDERED: ALPRAZolam 0.5 MG TAB PO PRN (21:38)
[2018-11-15] MEDS ORDERED: HYDROmorphone 0.5 MG/0.5 ML SYRINGE IVP STA (21:38)
[2018-11-16 06:23] LABS: Basophils % (A) 0 %; Eosinophils # (A) 0.2 k/uL (0-0.7); Eosinophils % (A) 2 %; HCT 38.4 % (39.0-53.0); Lymphocytes # (A) 1.6 k/uL (1.0-4.8); Lymphocytes % (A) 16 %; MCH 33.4 pg (25.0-35.0); MCHC 33.9 g/dL (31.0-37.0); MCV 98.6 fL (80.0-100.0); Mean Platelet Volume 5.9; Monocytes # (A) 0.5 k/uL (0-1.0); Monocytes % (A) 5 %; Neutrophils # (A) 7.4 k/uL (1.3-7.7); Neutrophils % (A) 76 %; Platelet Count 307 k/uL (150-450); RBC 3.89 m/uL (4.30-5.90); RDW 12.9 % (11.5-15.5); WBC 9.8 k/uL (3.8-10.6)
[2018-11-16 06:32] LABS: African American GFR (CKD) >90 (>60 ml/min/1.73 sqM); Anion Gap 8 mmol/L; Blood Urea Nitrogen 10 mg/dL (9-20); Carbon Dioxide 27 mmol/L (22-30); Chloride 104 mmol/L (98-107); Glucose 100 mg/dL (74-99); Non-African American GFR(CKD) >90 (>60 ml/min/1.73 sqM); Potassium 3.4 mmol/L (3.5-5.1); Sodium 139 mmol/L (137-145)
[2018-11-16 08:01] VITALS: BP 124/80; PULSE 94; RESP 19; TEMP 98.2
[2018-11-16] MEDS ORDERED: ASPIRIN 81 MG PO SCH (09:00)
[2018-11-16] MEDS ORDERED: LOSARTAN 50 MG TAB PO SCH (09:00)
[2018-11-16] MEDS ORDERED: PRASUGREL 10 MG TAB PO SCH (09:00)
--- NOTE | 2018-11-16 09:11 | US ---
EXAMINATION TYPE: US compress pseudoaneurysm RT DATE OF EXAM: 11/16/2018 COMPARISON: NONE CLINICAL HISTORY: rule out pseudoaneurysm . Rt groin heart cath done on 11/15/2018. EXAM PERFORMED: Grayscale and color Doppler duplex imaging performed of the groin, post cardiac maura ter to assess for pseudoaneurysm. SIDE PERFORMED: Right Color and Waveform Doppler performed to assess for the presence of pseudoaneurysm; Is there ultrasound evidence of a pseudoaneurysm: No Is there a fluid collection present: No Fistula visualized in right groin. 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
--- NOTE | 2018-11-16 09:14 | AN ---
ANGIOGRAPHY REPORT DATE OF SERVICE: November 15, 2018 PERFORMING PHYSICIAN: Freddy De La Cruz MD. PROCEDURE PERFORMED: 1. Selective left [id number]/left popliteal/left SFA angiogram. 2. Intravascular ultrasound, IVUS, of the left popliteal and left SFA. 3. Successful balloon angioplasty of the mid left SFA. 4. Successful stenting of the proximal and distal left SFA. INDICATION: This is a pleasant 53-year-old gentleman who sees Dr. Polo in the office as an outpatient with history of coronary artery disease as well as significant history of smoking, who was experiencing severe bilateral lower extremities intermittent claudication and underwent a peripheral angiogram and that revealed occluded left SFA and severe disease involving the right SFA. The occlusion of the SFA was a long segment extends from the proximal portion to the distal portion by the Anson canal. Because of that, a TRACK MECHANIC was advised. APPROACH: Right common femoral artery. COMPLICATION: None. LEVEL OF SEDATION: Moderate with sedation length of 86 minutes. PROCEDURE DESCRIPTION: After obtaining an informed consent, the patient was brought to the cardiac cardiac cath lab technologist. The right common femoral artery was cannulated using micropuncture technique, the micropuncture wire passed easily then I placed an 11 cm 6-Yemeni sheath in the right common femoral artery. At that point, anticoagulation was initiated using heparin and the patient was given a weight-based heparin with continuous ACT monitoring. After that, I did select the left profunda using 0.035 [employer] wire with the backup support of 5-Yemeni Rim catheter. After that, I did exchange my 11 cm 6-Yemeni sheath into 70 cm 6-Yemeni Raabe sheath using a 0.035 [employer] wire. The sheath was positioned in the left common femoral artery. Subsequently, I did selective left [id number] angiogram, left popliteal and SFA angiogram. The study revealed patent posterior tibial artery with patent popliteal with occluded left SFA on long segment, extends from the proximal portion all the way to the Anson canal. I was able to cross the chronic total occlusion using a .018 wire with the backup support of 0.018 CXI catheter. I did advance the catheter all the way to the left popliteal with injection of contrast in the left popliteal to prove that I was in the true lumen. After that, I did 0.014 wire which was hydro ST wire in the left popliteal and the wire was advanced to the left posterior tibial artery. I did intravascular ultrasound, IVUS, of the left popliteal as well as left SFA which showed calcified left SFA with patent left popliteal. I did initially balloon angioplasty using 5 mm x 200 mm balloon of the whole left SFA. The following angiogram showed good angiographic results in the midportion with dissection involving the proximal and distal left SFA. Because of that, I decided to cover the proximal and distal left SFA with a stent. Distally I placed 7 x 140 mm Zilver PTX drug-coated stent where the stent was positioned under fluoroscopy guidance and deployed under fluoroscopy guidance and postdilated using 6 mm balloon. Proximally I placed a 8 x 40 mm Zilver PTX where again the stent was positioned under fluoroscopy guidance and deployed under fluoroscopy guidance and postdilated using 7 mm balloon. For the mid left SFA, I did balloon angioplasty using drug-coated balloon which was 6 x 120 which was inflated under its nominal pressure for about 3 minutes. The final angiogram showed good angiographic results and the procedure was completed without any complication. After that I did exchange my long sheath into short sheath using 0.035 [employer] wire. Finally I did selective right common femoral artery angiogram. The procedure was completed without any complication. POSTPROCEDURE MANAGEMENT: 1. Dual antiplatelet therapy. 2. Risk factor modifications. 3. TRACK MECHANIC of the right SFA. MMODL / IJN: [id number] /
--- NOTE | 2018-11-16 09:20 | DS ---
DISCHARGE SUMMARY DATE OF ADMISSION: November 15, 2018 DATE OF DISCHARGE: November 16, 2018 BRIEF HISTORY: This is a pleasant, 53-year-old gentleman who sees Dr. Polo in the office as an outpatient with history of coronary artery disease as well as peripheral arterial disease who was experiencing bilateral lower extremities intermittent claudication, worse on the left side. The peripheral angiogram showed occluded left SFA on the long segment, extends from the proximal portion to the popliteal. The right SFA has a tight lesion in the distal portion. The patient underwent yesterday successful recanalizing chronic total occlusion of the left SFA along with balloon angioplasty. The procedure was performed from the right groin approach. He does have right groin tenderness and small hematoma. I am going to obtain an ultrasound to make sure there is no pseudoaneurysm. Otherwise, the patient is going to be discharged home on dual anti-platelet therapy and I will follow up with him in the office next week for angioplasty of the right SFA. MMKPL / PHILN: [id number] /
[2018-11-16] MEDS: METOPROLOL TARTRATE 25 MG TAB PO SCH (09:53)
== END 2018-11-16 10:22 | disposition home or self-care (01) ==
LOC: CATHCVL 13:43 → 3SCARD 17:07 → CATHCVL 11-16 10:22
PROVIDERS: ATTEND Internal Medicine Interventional Cardiology
DX: I70.213 Atherosclerosis of native arteries of extremities with intermittent claudication, bilateral legs (principal); I70.92 Chronic total occlusion of artery of the extremities; F17.200 Nicotine dependence, unspecified, uncomplicated; I25.10 Atherosclerotic heart disease of native coronary artery without angina pectoris; I10 Essential (primary) hypertension; E78.5 Hyperlipidemia, unspecified; Z82.49 Family history of ischemic heart disease and other diseases of the circulatory system; Z79.82 Long term (current) use of aspirin; Z79.899 Other long term (current) drug therapy; Z88.5 Allergy status to narcotic agent
CPT/HCPCS: 37226; 85347; 37252; 37253; 80048 ×2; 85025 ×2; 93975; 76936; C1894 ×2; C1769 ×6; C1714; C1753; C2623; C1874 ×2; C1725; J2001; J1644; J1170 ×2; Q9966; J2250

== ENCOUNTER 2019-02-01 08:13 | Observation (INO) | payer BC ==
[2019-01-29 11:56] VITALS: BMI 29.2
[~2019-02-01 08:13] MED LIST changes: +ALPRAZolam 0.25 MG TAB PO PRN; +ALPRAZolam 0.5 MG TAB PO PRN; +ASPIRIN 325 MG TAB PO STA; +ZOLPIDEM 5 MG TAB PO PRN
[2019-02-01] MEDS ORDERED: METOPROLOL TARTRATE 50 MG TAB PO STA (08:30)
[2019-02-01] MEDS ORDERED: LOSARTAN 50 MG TAB PO STA (08:30)
[2019-02-01 08:45] LABS: Basophils # (A) 0.1 k/uL (0-0.2); Basophils % (A) 1 %; Eosinophils # (A) 0.3 k/uL (0-0.7); Eosinophils % (A) 4 %; HCT 42.6 % (39.0-53.0); HGB 14.3 gm/dL (13.0-17.5); Lymphocytes # (A) 2.4 k/uL (1.0-4.8); Lymphocytes % (A) 32 %; MCH 31.5 pg (25.0-35.0); MCHC 33.5 g/dL (31.0-37.0); MCV 94.1 fL (80.0-100.0); Mean Platelet Volume 7.1; Monocytes # (A) 0.5 k/uL (0-1.0); Monocytes % (A) 6 %; Neutrophils # (A) 3.9 k/uL (1.3-7.7); Neutrophils % (A) 54 %; Platelet Count 274 k/uL (150-450); RBC 4.52 m/uL (4.30-5.90); RDW 12.9 % (11.5-15.5); WBC 7.3 k/uL (3.8-10.6)
[2019-02-01 08:55] LABS: African American GFR (CKD) >90 (>60 ml/min/1.73 sqM); Anion Gap 8 mmol/L; Blood Urea Nitrogen 11 mg/dL (9-20); Calcium 9.7 mg/dL (8.4-10.2); Carbon Dioxide 27 mmol/L (22-30); Chloride 108 mmol/L (98-107); Glucose 99 mg/dL (74-99); Non-African American GFR(CKD) >90 (>60 ml/min/1.73 sqM); Potassium 3.9 mmol/L (3.5-5.1); Sodium 143 mmol/L (137-145)
[2019-02-01] MEDS ORDERED: MIDAZOLAM 2 MG/2 ML VIAL IVP ONE (10:20)
[2019-02-01] MEDS ORDERED: LIDOCAINE 1% INJ 10MG/ML (20 ML MDV) SQ ONE (10:24)
[2019-02-01] MEDS ORDERED: HYDROmorphone 1 MG/ML 1 ML SYRINGE IVP ONE (10:26)
[2019-02-01] MEDS ORDERED: HEPARIN SODIUM 1,000 UN/ML (10ML VL) IV ONE (10:28)
[2019-02-01] MEDS ORDERED: MORPHINE SULFATE 4 MG/ML SYRINGE IVP ONE (11:09)
[2019-02-01] MEDS ORDERED: NITROGLYCERIN 1000MCG/10ML SYRINGE INTRAARTER ONE (11:13)
[2019-02-01] MEDS ORDERED: niCARdipine Syringe (1,000 mcg/10 mL) INTRAARTER ONE (11:13)
[2019-02-01] MEDS ORDERED: NITROGLYCERIN SL TABS 0.4 MG TAB SUBLINGUAL PRN (11:30)
[2019-02-01] MEDS ORDERED: IOPAMIDOL-250 100ML BTL INTRAARTER ONE (11:33)
[2019-02-01] MEDS ORDERED: SODIUM CHLORIDE 0.9% 1,000 ML IV SCH (11:45)
--- NOTE | 2019-02-01 12:06 | IR ---
EXAMINATION TYPE: IR clam dredge boat captain femoral popliteal DATE OF EXAM: 02/01/2019 COMPARISON: NONE HISTORY: Fluoroscopy time. Fluoroscopy was provided to the referring clinician. 13.5 minutes of fluoroscopy provided.
[2019-02-01] MEDS: HYDROmorphone 1 MG/ML 1 ML SYRINGE IVP PRN ×3 (12:46→20:52)
[2019-02-01] MEDS ORDERED: hydrALAZINE HCL 20 MG/ML 1 ML VIAL IVP PRN (14:43)
[2019-02-01] MEDS: PANTOPRAZOLE 40 MG TABLET PO SCH (16:57)
--- NOTE | 2019-02-01 19:32 | PCN ---
PROCEDURE NOTE DATE OF SERVICE: 02/01/2019 PERFORMING PHYSICIAN: Freddy De La Cruz M.D. PROCEDURES PERFORMED: 1. Right lower extremity angiogram. 2. Left lower extremity angiogram. 3. Intravascular ultrasound (IVUS) of the right SFA. 4. Atherectomy of the right SFA using the orbital atherectomy device from [employer] and using 1.5 mm solid malena. 5. Successful balloon angioplasty of the proximal and distal right SFA. INDICATION: This is a 53-year-old gentleman who was experiencing bilateral lower extremity intermittent claudication and underwent a peripheral angiogram which revealed occluded left SFA and severe right SFA. He underwent an intervention in the left SFA and he was brought today to undergo an intervention in the right SFA. COMPLICATIONS: None. LEVEL OF SEDATION: Moderate, with sedation length of 57 minutes. PROCEDURE DESCRIPTION: After obtaining informed consent, the patient was brought to the cardiac laboratory mechanic helper. The left common femoral artery was cannulated using micropuncture technique. The micropuncture wire passed easily. Then I placed an 11 cm 6-Panamanian sheath in the left common femoral artery. After that I started anticoagulation using heparin; the patient was given a total of 10,000 units of heparin IV. After that I selected the right SFA using an 0.035 [place] [employer] wire with the backup support of 5-Panamanian RIM catheter. The 0.035 [employer] [employer] wire was advanced to the mid right SFA. Subsequently I exchanged my 11 cm 6-Panamanian sheath for a 70 cm 6-Panamanian Raabe sheath using 0.035 [employer] wire. The tip of the long sheath was positioned at the proximal right SFA. After that I did selective right lower extremity angiogram which revealed 2-vessel runoff below the knee with anterior tibial and posterior tibial as well as 2 lesions involving the distal and proximal right SFA. I confirmed the lesion severity using intravascular ultrasound, IVUS, after I wired the right SFA using [employer]. After that I did measure the diameter, which was around 8 mm. I did atherectomy of the right SFA using the orbital atherectomy device from [employer] and using 1.5 mm solid malena. After that I did balloon angioplasty, initially 6 x 60 and then 8 x 60 mm balloon. The following angiogram showed excellent angiographic results and the procedure was completed without any complication. After that I did exchange my long 70 cm sheath for a short 11 cm sheath using 0.035 [employer] wire. I did selective left lower extremity angiogram which revealed patent stent in the left SFA with 3-vessel runoff below the knee on that side. I did that because the patient was experiencing right tightness concerning for intermittent claudication. The procedure was completed without any complication. POST-PROCEDURE MANAGEMENT: 1. Dual anti-platelet therapy. 2. Risk factor modifications. 3. Follow up with the patient. HOPE / PERFECTO: [id number] /
[2019-02-01] MEDS: METOPROLOL TARTRATE 50 MG TAB PO SCH (20:53)
[2019-02-01] MEDS ORDERED: ATORVASTATIN 40 MG TAB PO SCH (21:00)
[2019-02-02] MEDS: HYDROmorphone 1 MG/ML 1 ML SYRINGE IVP PRN (05:19)
[2019-02-02 06:13] VITALS: RESP 18
[2019-02-02 06:20] VITALS: PULSE 83
[2019-02-02] MEDS: PANTOPRAZOLE 40 MG TABLET PO SCH (06:56)
[2019-02-02 07:16] LABS: Basophils % (A) 0 %; Eosinophils # (A) 0.2 k/uL (0-0.7); Eosinophils % (A) 3 %; HGB 13.4 gm/dL (13.0-17.5); Lymphocytes # (A) 1.6 k/uL (1.0-4.8); Lymphocytes % (A) 23 %; MCH 31.1 pg (25.0-35.0); MCHC 32.7 g/dL (31.0-37.0); MCV 94.9 fL (80.0-100.0); Mean Platelet Volume 7.3; Monocytes # (A) 0.5 k/uL (0-1.0); Monocytes % (A) 6 %; Neutrophils # (A) 4.7 k/uL (1.3-7.7); Neutrophils % (A) 66 %; Platelet Count 255 k/uL (150-450); RBC 4.31 m/uL (4.30-5.90)
[2019-02-02 07:28] LABS: African American GFR (CKD) >90 (>60 ml/min/1.73 sqM); Anion Gap 7 mmol/L; Blood Urea Nitrogen 8 mg/dL (9-20); Calcium 9.4 mg/dL (8.4-10.2); Carbon Dioxide 26 mmol/L (22-30); Chloride 107 mmol/L (98-107); Glucose 92 mg/dL (74-99); Non-African American GFR(CKD) >90 (>60 ml/min/1.73 sqM); Potassium 4.1 mmol/L (3.5-5.1); Sodium 140 mmol/L (137-145)
[2019-02-02] MEDS: METOPROLOL TARTRATE 50 MG TAB PO SCH (07:52)
[2019-02-02 07:55] VITALS: BP 132/85; TEMP 98
[2019-02-02] MEDS ORDERED: ASPIRIN 81 MG PO SCH (09:00)
[2019-02-02] MEDS ORDERED: LOSARTAN 50 MG TAB PO SCH (09:00)
[2019-02-02] MEDS ORDERED: HYDROCHLOROTHIAZIDE 25 MG TAB PO SCH (09:00)
[2019-02-02] MEDS ORDERED: PRASUGREL 10 MG TAB PO SCH (09:00)
[2019-02-02] MEDS ORDERED: CLOPIDOGREL 75 MG TAB PO SCH (09:00)
--- NOTE | 2019-02-02 09:42 | DS ---
DISCHARGE SUMMARY ADMISSION DATE: 02/01/2019 DISCHARGE DATE: 02/02/2019 BRIEF HISTORY: This is a 53-year-old gentleman who underwent yesterday an atherectomy and balloon angioplasty of the right SFA from a left groin approach. The procedure was completed with an excellent angiographic results and without any complication from the left groin approach. Patient was seen this morning. He is doing good. He is asymptomatic. The left groin is soft and nontender and without any bruises. The patient is going to be discharged home on dual anti-platelet therapy and I will follow up with the patient next week in the office. MMODL / IJN: [id number] /
== END 2019-02-02 10:15 | disposition home or self-care (01) ==
LOC: CATHCVL 08:13 → 3SCARD 11:20 → CATHCVL 23:06
PROVIDERS: ADMIT Internal Medicine Interventional Cardiology; ATTEND Internal Medicine Interventional Cardiology
DX: I70.211 Atherosclerosis of native arteries of extremities with intermittent claudication, right leg (principal); I25.10 Atherosclerotic heart disease of native coronary artery without angina pectoris; I10 Essential (primary) hypertension; E78.5 Hyperlipidemia, unspecified; F17.210 Nicotine dependence, cigarettes, uncomplicated; Z95.828 Presence of other vascular implants and grafts; Z79.82 Long term (current) use of aspirin; Z79.899 Other long term (current) drug therapy; Z88.5 Allergy status to narcotic agent; Z82.49 Family history of ischemic heart disease and other diseases of the circulatory system
CPT/HCPCS: 37225; 85347; 37252; 80048 ×2; 85025 ×2; G0378 ×2; C1894 ×2; C1714; C1769 ×5; C1725 ×2; C1753; J2250; J2270; J0360; J2001; J1644; J1170 ×2; Q9966

== ENCOUNTER → 2019-03-28 | Outpatient (CLI) | payer BC ==
--- NOTE | 2019-03-29 04:26 | CT ---
EXAMINATION TYPE: CT abdomen pelvis w con DATE OF EXAM: 03/28/2019 COMPARISON: NONE HISTORY: 54-year-old male abdominal pain and distention, abnormal weight gain TECHNIQUE: Contiguous axial scanning of the abdomen and pelvis following administration of 100 ml Iso yvette 300 IV contrast. Delayed images through the kidneys and coronal/sagittal reconstructions perform ed. CT DLP: 1107.8 mGycm Automated exposure control for dose reduction was used. FINDINGS: Heart upper limits of normal in size without pericardial effusion. Lung bases clear without pleural e ffusion. An 8 mm hypodensity within the right liver lobe to small for accurate CT characterization, probable c yst. No biliary ductal dilatation. Portal venous system is patent. Gallbladder surgically absent. Adrenal glands, kidneys, spleen with a anterior hilar splenule, and pancreas appear within normal narayanan its. Moderate atherosclerotic calcifications infrarenal abdominal aorta and iliac arteries without aneurys m. No dilated small bowel, free fluid, or free air. No mesenteric or retroperitoneal lymphadenopathy. Colon shows some segmental areas of mural thickening, within the cecum, lower ascending colon, and mi d sigmoid colon, refer to axial images 50, 54, and 65. No pericolonic inflammatory change. Normal johnny endix. Mild circumferential bladder wall thickening. Prostate gland measures 4.0 cm wide. Slightly patulous bilateral inguinal canals. No abnormal fluid collection in the pelvis or pelvic lymphadenopathy. Left -sided pelvic phlebolith. Bones: A stent is noted within the upper left superficial femoral artery. Mild degenerative change at the hips and SI joints. Facet arthropathy lower lumbar spine. IMPRESSION: 1. A FEW SEGMENTAL AREAS OF MURAL-BASED THICKENING WITHIN THE COLON, PARTICULARLY THE CECUM, LOWER CENDING COLON, AND MID SIGMOID COLON. CORRELATE FOR NONSPECIFIC COLITIS. DIRECT VISUALIZATION RECOMME NDED IF ROUTINE SCREENING IS NOT BEING PERFORMED. 2. MILD CIRCUMFERENTIAL BLADDER WALL THICKENING COULD REPRESENT CHRONIC BLADDER HYPERTROPHY OR CYSTIT IS.
== END | disposition home or self-care (01) ==
LOC: RADCTMAIN 13:58
PROVIDERS: ATTEND Internal Medicine
DX: K63.89 Other specified diseases of intestine (principal); N32.89 Other specified disorders of bladder; Z88.5 Allergy status to narcotic agent
CPT/HCPCS: 74177; Q9967

== ENCOUNTER → 2020-03-19 | Outpatient (CLI) | payer BC ==
[2020-03-19 20:04] LABS: African American GFR (CKD) 110.3 (60.0-200.0); Albumin 4.4 g/dL (3.80-4.90); Anion Gap 3.3 mmol/L (4.00-12.00); BUN/Creat Ratio 7.78 Ratio (12.00-20.00); Calcium 9.2 mg/dL (8.7-10.3); Carbon Dioxide 32.7 mmol/L (21.6-31.8); Chol/HDL Ratio 3.88; Globulin 1.6 g/dL (1.6-3.3); LDL Cholesterol,Calculated 47.4 mg/dL (0.0-131.0); Non-African American GFR(CKD) 95.1 (60.0-200.0); Potassium 3.7 mmol/L (3.5-5.5); VLDL Calculation 27.6 mg/dL (5.00-40.00)
[2020-03-19 20:05] LABS: Albumin/Globulin Ratio 2.75 (1.60-3.17); Total Bilirubin 0.2 mg/dL (0.2-1.2)
== END | disposition home or self-care (01) ==
LOC: LABWHC1 11:28
PROVIDERS: ATTEND Nurse Practitioner Adult Health
DX: I10 Essential (primary) hypertension (principal); E78.2 Mixed hyperlipidemia
CPT/HCPCS: 36415; 80053; 80061

== ENCOUNTER → 2020-04-09 | Day surgery (SDC) | payer BC ==
[2020-04-04 10:41] VITALS: BMI 36.0
[~2020-04-09] MED LIST changes: +ALPRAZolam 0.5 MG TAB PO ONE; +ASPIRIN 325 MG TAB PO ONE; -ASPIRIN 325 MG TAB PO STA; +ASPIRIN 81 MG PO SCH; +ATORVASTATIN 40 MG TAB PO SCH; +ATORVASTATIN 80 MG TAB PO ONE; +HEPARIN SODIUM 1,000 UN/ML (10ML VL) IV ONE; +IOPAMIDOL-370 150ML BTL INJ ONE; +LIDOCAINE 1% INJ 10MG/ML (20 ML MDV) ONE; +LIDOCAINE 1% INJ 10MG/ML (20 ML MDV) SQ ONE; +LOSARTAN 50 MG TAB PO SCH; +METOPROLOL TARTRATE 50 MG TAB PO SCH; +MIDAZOLAM 2 MG/2 ML VIAL IVP ONE; +NITROGLYCERIN SL TABS 0.4 MG TAB SUBLINGUAL PRN; +PANTOPRAZOLE 40 MG TABLET PO SCH; +PRASUGREL 10 MG TAB PO SCH; +RX INFO: IV CONTRAST WAS GIVEN 1 EACH MISC MISCELLANE PRN; +SODIUM CHLORIDE 0.9% 1,000 ML IV ONE; +SODIUM CHLORIDE 0.9% 1,000 ML IV SCH; +VERAPAMIL 2.5 MG/ML 2 ML AMP ONE; +VERAPAMIL SYRINGE (5 MG/10 ML) INTRAARTER ONE; -ZOLPIDEM 5 MG TAB PO PRN; +fentaNYL (PF) 50 MCG/ML 2 ML AMP IV ONE; +fentaNYL (PF) 50 MCG/ML 2 ML AMP ONE; +hydroCHLOROthiazide 25 MG TAB PO SCH
[2020-04-09 11:17] LABS: Basophils # (A) 0.1 k/uL (0-0.2); Basophils % (A) 0 %; Eosinophils # (A) 0.2 k/uL (0-0.7); Eosinophils % (A) 2 %; HCT 45.9 % (39.0-53.0); HGB 15.3 gm/dL (13.0-17.5); Lymphocytes # (A) 2.6 k/uL (1.0-4.8); Lymphocytes % (A) 21 %; MCH 30.6 pg (25.0-35.0); MCHC 33.3 g/dL (31.0-37.0); MCV 91.8 fL (80.0-100.0); Mean Platelet Volume 6.7; Monocytes # (A) 0.9 k/uL (0-1.0); Monocytes % (A) 7 %; Neutrophils # (A) 8.5 k/uL (1.3-7.7); Neutrophils % (A) 69 %; Platelet Count 390 k/uL (150-450); RBC 4.99 m/uL (4.30-5.90); RDW 14.2 % (11.5-15.5); WBC 12.3 k/uL (3.8-10.6)
[2020-04-09 13:52] VITALS: RESP 18
--- NOTE | 2020-04-09 14:21 | CC ---
CARDIAC CATHETERIZATION REPORT Mr. Blair is a 55-year-old male with known history of coronary artery disease, status post stenting of the RCA in June of 2018, history of peripheral vascular disease, hypertension, hyperlipidemia, and chronic tobacco use, who has been complaining of recurrent episode of chest discomfort. According to him reminding him of the pain he had prior to the PCI. He had a myocardial perfusion imaging that revealed no evidence of inducible ischemia, but because of the persistent symptoms, recommendation was made regarding cardiac catheterization. The procedure as well as the risks and complications were discussed with the patient who is in full understanding and agreement. PROCEDURE: Patient was brought to pathology lab technician in the fasting semi-sedated state after receiving fentanyl and Benadryl and achieving moderate conscious sedated state. Using Xylocaine and Seldinger technique, a 6-Panamanian sheath was introduced in the right radial artery. Selective right and left coronary angiography performed using 5-Panamanian 3.5 bend, right and left Bryanna catheter. Multiple views of coronary artery including hemiaxial views were obtained. Following that, 5-Panamanian tight pigtail catheter was introduced in the left ventricle and pressures were calculated. Following that, catheter and sheath were removed. Hemostasis was obtained with deployment of a TR band. There was no immediate complication. Patient is returned to his room in stable condition. Of note, the patient received 5000 units of intravenous heparin as well as intra-arterial verapamil. FINDINGS: FLUOROSCOPY: There is calcification involving all the coronary arteries. LEFT MAIN: This is a large-sized vessel, bifurcating into left circumflex, left anterior descending artery left main coronary artery has no evidence of high-grade stenosis. LEFT ANTERIOR DESCENDING ARTERY: This is a large-sized vessel reaching to the apex with a wraparound apex segment. The left anterior descending artery gives rise to a large diagonal branch proximally. The LAD has mild intimal disease in the proximal and mid segment of 20% to 30% without any evidence of high-grade stenosis. LEFT CIRCUMFLEX: This is a nondominant large size vessel, giving rise to a large obtuse marginal branch. The left circumflex at the takeoff of the obtuse marginal branch has a 30% plaque. The rest of the vessel has no high-grade stenosis. RIGHT CORONARY ARTERY: This is a large dominant vessel bifurcating distally PDA and posterolateral segment and branches. The stented segment distally is patent with no evidence of in-stent restenosis. There is a 40% to 50% plaque in the PLV that has not progressed significantly compared to 2019. The rest of the vessel has no high-grade stenosis. LEFT VENTRICULOGRAM: Left ventriculogram was not performed. HEMODYNAMICS: There was no gradient across the aortic valve. The left ventricular end-diastolic pressure was 12-16 mmHg. CONCLUSION: 1. Calcified coronary arteries. 2. Mild triple-vessel coronary artery disease with no evidence of significant restenosis in the stented segment. RECOMMENDATION: In view of finding anatomy, I recommend continue medical therapy with aggressive coronary risk modifications being initiated including smoking cessation. Those findings and recommendations were discussed with the patient and his family and are in full understanding and agreement. Duration of sedation is 21 minutes. MMODL / IJN: [id number] /
[2020-04-09 15:52] VITALS: BP 111/66; PULSE 88
== END | disposition home or self-care (01) ==
LOC: CATHCVL 10:31
PROVIDERS: ATTEND Internal Medicine Interventional Cardiology
DX: I25.110 Atherosclerotic heart disease of native coronary artery with unstable angina pectoris (principal); I25.84 Coronary atherosclerosis due to calcified coronary lesion; Z95.5 Presence of coronary angioplasty implant and graft; E78.00 Pure hypercholesterolemia, unspecified; I10 Essential (primary) hypertension; E78.2 Mixed hyperlipidemia; I70.213 Atherosclerosis of native arteries of extremities with intermittent claudication, bilateral legs; J44.9 Chronic obstructive pulmonary disease, unspecified; F17.210 Nicotine dependence, cigarettes, uncomplicated; Z82.49 Family history of ischemic heart disease and other diseases of the circulatory system; Z90.49 Acquired absence of other specified parts of digestive tract; Z98.890 Other specified postprocedural states; Z90.89 Acquired absence of other organs; M19.90 Unspecified osteoarthritis, unspecified site; Z79.82 Long term (current) use of aspirin; Z79.899 Other long term (current) drug therapy; Z88.5 Allergy status to narcotic agent
CPT/HCPCS: 93458; 85025; C1769; C1894; J2250; J2001; J3010; J1644; Q9967

== ENCOUNTER → 2020-04-25 | Outpatient (CLI) | payer BC ==
--- NOTE | 2020-04-25 16:19 | CT ---
EXAMINATION TYPE: CT abdomen pelvis w con DATE OF EXAM: 04/25/2020 COMPARISON: 03/28/2019 INDICATION: Lower abdominal pain, abdominal distention and fatigue. DLP: 1562 mGycm, Automated exposure control for dose reduction was used. CONTRAST: 100ml mL of Isovue 300. Study performed with Oral Contrast TECHNIQUE: Axial images were obtained from above the diaphragm to the pubic rami in the axial plane a t 5 mm thick sections. Reconstructed images are reviewed on the computer in the coronal plane. FINDINGS: Limited CT sections are obtained the lung bases. The lung bases are clear. CT ABDOMEN: Liver: Small hypodensity within the liver present previously is likely a small cyst. Spleen: Normal Pancreas: Normal Adrenal glands: The adrenal glands are normal. Gallbladder: Normal Kidneys: No masses are evident. No hydronephrosis is present. No cysts are present. Delayed images were obtained through the kidneys, which remain unremarkable. Aorta: Vascular calcification is within the aorta. Inferior vena cava: Normal. CT PELVIS: There continues to be thickening within the mid ascending colon. This appears more solid than compari son. Differential includes mass or debris. The descending colon is not been evaluated, consider addit ional workup of this region. There are loops of bowel which are incompletely distended or lack oral c ontrast limiting their evaluation. Appendix: Normal as visualized. Urinary bladder: Mild wall thickening remains persistent. Consider neurogenic bladder as well as cyst itis. Genitourinary structures: Prostate is prominent Osseous structures: No suspicious lytic or sclerotic lesions. IMPRESSIONS: 1. There appears to be some internal thickening of the ascending colon. Underlying mass should be co nsidered. Fecal debris could account for this finding. Additional workup of this region is recommende d. 2. Cystitis versus neurogenic bladder.
== END ==
LOC: RADCTMAIN 14:01
PROVIDERS: ATTEND Family Medicine
DX: R10.30 Lower abdominal pain, unspecified (principal)
CPT/HCPCS: 74177; Q9967

== ENCOUNTER → 2020-05-16 | Outpatient (CLI) | payer BC ==
--- NOTE | 2020-05-18 22:38 | CT ---
EXAMINATION TYPE: CT angio abd aorta w/Runoff DATE OF EXAM: 05/16/2020 COMPARISON: 04/25/2020 INDICATION: Bilateral leg weakness. DLP: 1982.1 mGycm, Automated exposure control for dose reduction was used. CONTRAST: 100ml mL of Isovue 370. Study performed without Oral Contrast TECHNIQUE: Axial images were obtained from above the diaphragm to the pubic rami in the axial plane a t 5 mm thick sections. Reconstructed images are reviewed on the computer in the coronal plane. 3-D reconstructed images from a separate computer by the technologists are present. FINDINGS: Limited CT sections are obtained the lung bases. The lung bases are clear. CT ABDOMEN: Liver: There is a small hypodensity within the right lobe liver measuring 0.7 cm may be a small cyst as was present previously. Spleen: Normal Pancreas: Normal Adrenal glands: The adrenal glands are normal. Gallbladder: Normal Kidneys: No masses are evident. No hydronephrosis is present. No cysts are present. Delayed images were obtained through the kidneys, which remain unremarkable. Aorta: Vascular calcification is within the aorta. Anterior tibial artery on the left has multiple segments of severe stenosis with nonvisualization of the vessel. However, the vessel is seen to the distal calf region. Peroneal arteries become nonvisual ized within the more proximal portions of the calf. Posterior tibial arteries are patent to the level of the ankles bilaterally. The bilateral popliteal arteries bilateral superficial femoral arteries bilateral common femoral carlo shayna and profunda femoris vessels appear patent. Atheromatous plaquing is within internal and externa l iliac vessels. Some narrowing of left external iliac vessel may be present. Inferior vena cava: Normal. CT PELVIS: Loops of bowel within the abdomen and pelvis are normal. Study is without contrast. Appendix: Not identified. Urinary bladder: Normal. Genitourinary structures: Prostate appears unremarkable Osseous structures: No suspicious lytic or sclerotic lesions. IMPRESSIONS: 1. Limited visualization with areas of stenosis through the left anterior tibial artery. 2. Lateral Peroneal arteries appear nonvisualized beyond their proximal origins. 3. Atheromatous plaquing calcifications within the aorta and iliac vessels superficial femoral arteri es.
== END | disposition home or self-care (01) ==
LOC: RADCTMAIN 16:56
PROVIDERS: ATTEND Internal Medicine Interventional Cardiology
DX: I70.0 Atherosclerosis of aorta (principal)
CPT/HCPCS: 75635; Q9967

== ENCOUNTER 2020-06-05 10:06 | Day surgery (SDC) | payer BC ==
[2020-06-04 09:13] VITALS: BMI 33.9
[~2020-06-05 10:06] MED LIST changes: -ALPRAZolam 0.25 MG TAB PO PRN; -ALPRAZolam 0.5 MG TAB PO ONE; -ALPRAZolam 0.5 MG TAB PO PRN; -ASPIRIN 325 MG TAB PO ONE; -ASPIRIN 81 MG PO SCH; -ATORVASTATIN 40 MG TAB PO SCH; -ATORVASTATIN 80 MG TAB PO ONE; -HEPARIN SODIUM 1,000 UN/ML (10ML VL) IV ONE; -IOPAMIDOL-370 150ML BTL INJ ONE; +LACTATED RINGERS 1,000 ML IV SCH; -LIDOCAINE 1% INJ 10MG/ML (20 ML MDV) ONE; -LIDOCAINE 1% INJ 10MG/ML (20 ML MDV) SQ ONE; -LOSARTAN 50 MG TAB PO SCH; -METOPROLOL TARTRATE 50 MG TAB PO SCH; -MIDAZOLAM 2 MG/2 ML VIAL IVP ONE; -NITROGLYCERIN SL TABS 0.4 MG TAB SUBLINGUAL PRN; -PANTOPRAZOLE 40 MG TABLET PO SCH; -PRASUGREL 10 MG TAB PO SCH; -RX INFO: IV CONTRAST WAS GIVEN 1 EACH MISC MISCELLANE PRN; -SODIUM CHLORIDE 0.9% 1,000 ML IV ONE; -SODIUM CHLORIDE 0.9% 1,000 ML IV SCH; -SODIUM CHLORIDE 0.9% 1,000 ML in EMPTY BAG 1 BAG IV ONE; -VERAPAMIL 2.5 MG/ML 2 ML AMP ONE; -VERAPAMIL SYRINGE (5 MG/10 ML) INTRAARTER ONE; -fentaNYL (PF) 50 MCG/ML 2 ML AMP IV ONE; -fentaNYL (PF) 50 MCG/ML 2 ML AMP ONE; -hydroCHLOROthiazide 25 MG TAB PO SCH
[2020-06-05] MEDS ORDERED: LIDOCAINE 1% (10MG/ML) FOR IV START INTRADERMA ONE (10:40)
[2020-06-05 10:46] VITALS: RESP 16; TEMP 98.4
[2020-06-05] MEDS ORDERED: PROPOFOL 10 MG/ML 20 ML VIAL IV ONE (10:57)
[2020-06-05] MEDS ORDERED: LIDOCAINE 1% INJ 10MG/ML (20 ML MDV) ONE (10:57)
[2020-06-05] MEDS ORDERED: MIDAZOLAM 2 MG/2 ML VIAL ONE (10:57)
--- NOTE | 2020-06-05 11:50 | P.PCN ---
Date of Procedure: 06/05/20 Description of Procedure: BRIEF HISTORY: Patient is a 55-year-old male presenting for outpatient colonoscopy for evaluation of abnormal imaging of the gastrointestinal tract. The patient was seen in the clinic complaining of bloating, weight gain and abdominal pain. Previous he has a history of colonoscopy with polypectomy. Computed tomography scan on 04/25/20 showed thickening within the mid ascending colon. PROCEDURE PERFORMED: Colonoscopy with polypectomy. PREOPERATIVE DIAGNOSIS: Abnormal imaging of the gastric intestinal tract, abdominal pain, history of colon polyps. ESTIMATED BLOOD LOSS: Minimal. IV sedation per Anesthesia. PROCEDURE: After informed consent was obtained, the patient, was brought into the endoscopy unit. IV sedation was administered by Anesthesia under continuous monitoring. Digital rectal examination was normal. Initially the Olympus CF-190 flexible video colonoscope was then inserted in the rectum, gradually advanced into the cecum without any difficulty. Careful examination was performed as the scope was gradually being withdrawn. Ileocecal valve and the appendiceal orifice were visualized and appeared normal. Prep was excellent. Mucosa of the cecum, ascending colon, transverse colon, descending colon, sigmoid colon, and rectum appeared normal, with random biopsies taken of a normal-appearing terminal ileum, the right and left colon. A flat 12 mm ileocecal valve polyp was removed with hot snare polypectomy. A small 3 mm ascending colon polyp was removed with cold snare polypectomy. A few scattered diverticula noted in the left colon. Retroflexion was performed in the rectum and no lesions were seen, internal hemorrhoids seen. The patient tolerated the procedure well. IMPRESSION: No abnormalities in the ascending colon to correlate with CT findings. Large flat ileocecal valve polyp removed with hot snare polypectomy. Diminutive ascending colon polyp removed with cold snare polypectomy. Mild left colonic diverticulosis. Internal hemorrhoids. Random biopsies of the terminal ileum, right and left colon. RECOMMENDATIONS: Findings of this examination were discussed with the patient and his family. Okay to resume diet. Okay to resume medications. Await pathology from polypectomy and biopsies. Recommend repeat colonoscopy in 3 years for colon polyp.
[2020-06-05 12:21] VITALS: BP 95/60; PULSE 94
== END 2020-06-05 12:41 | disposition home or self-care (01) ==
LOC: ORWHC2ENDO 10:06
PROVIDERS: ATTEND Internal Medicine
DX: D12.2 Benign neoplasm of ascending colon (principal); D12.0 Benign neoplasm of cecum; Z86.010 Personal history of colon polyps; K57.30 Diverticulosis of large intestine without perforation or abscess without bleeding; R94.8 Abnormal results of function studies of other organs and systems; K64.8 Other hemorrhoids; K21.9 Gastro-esophageal reflux disease without esophagitis; I25.10 Atherosclerotic heart disease of native coronary artery without angina pectoris; I10 Essential (primary) hypertension; M19.90 Unspecified osteoarthritis, unspecified site; I73.9 Peripheral vascular disease, unspecified; Z97.2 Presence of dental prosthetic device (complete) (partial); F17.200 Nicotine dependence, unspecified, uncomplicated; Z98.890 Other specified postprocedural states; Z87.19 Personal history of other diseases of the digestive system; Z95.5 Presence of coronary angioplasty implant and graft; Z79.82 Long term (current) use of aspirin; Z79.899 Other long term (current) drug therapy; Z88.5 Allergy status to narcotic agent
CPT/HCPCS: 88305; 45380; 45385; J2250; J2001; J2704

== ENCOUNTER → 2020-06-11 | Day surgery (SDC) | payer BC ==
[2020-06-04 09:29] VITALS: BMI 33.9
[~2020-06-11] MED LIST changes: +ALPRAZolam 0.25 MG TAB PO PRN; +ASPIRIN 325 MG TAB PO PRN; -LACTATED RINGERS 1,000 ML IV SCH; +POTASSIUM CHLORIDE ER 20 MEQ TAB.ER PO STA; +SODIUM CHLORIDE 0.9% 1,000 ML in EMPTY BAG 1 BAG IV ONE
[2020-06-11 08:05] VITALS: BP 125/56; PULSE 91; RESP 18; TEMP 98.3
[2020-06-11 08:51] LABS: Basophils % (A) 0 %; Eosinophils # (A) 0.2 k/uL (0-0.7); Eosinophils % (A) 2 %; HCT 45.4 % (39.0-53.0); HGB 14.6 gm/dL (13.0-17.5); Lymphocytes # (A) 2.2 k/uL (1.0-4.8); Lymphocytes % (A) 20 %; MCHC 32.2 g/dL (31.0-37.0); MCV 90.1 fL (80.0-100.0); Monocytes # (A) 0.6 k/uL (0-1.0); Monocytes % (A) 5 %; Neutrophils # (A) 7.8 k/uL (1.3-7.7); Neutrophils % (A) 71 %; Platelet Count 400 k/uL (150-450); RBC 5.04 m/uL (4.30-5.90); RDW 14.8 % (11.5-15.5)
[2020-06-11 09:00] LABS: Calcium 8.9 mg/dL (8.4-10.2)
[2020-06-11 09:41] LABS: Potassium 2.7 mmol/L (3.5-5.1)
== END ==
LOC: CATHCVL 07:43
PROVIDERS: ATTEND Internal Medicine Interventional Cardiology
DX: I73.9 Peripheral vascular disease, unspecified (principal); Z53.9 Procedure and treatment not carried out, unspecified reason; Z20.822 Contact with and (suspected) exposure to COVID-19
CPT/HCPCS: 80048; 85025; 87635

== ENCOUNTER → 2020-06-13 | Day surgery (SDC) | payer BC ==
[2020-06-12 08:19] VITALS: BMI 33.9
[~2020-06-13] MED LIST changes: -POTASSIUM CHLORIDE ER 20 MEQ TAB.ER PO STA
[2020-06-13 11:07] VITALS: BP 121/67; PULSE 88; RESP 18; TEMP 97.6
[2020-06-13 11:12] LABS: Calcium 8.4 mg/dL (8.4-10.2); Potassium 3.2 mmol/L (3.5-5.1)
== END ==
LOC: CATHCVL 10:24
PROVIDERS: ATTEND Internal Medicine Interventional Cardiology
DX: I73.9 Peripheral vascular disease, unspecified (principal); I10 Essential (primary) hypertension; Z53.8 Procedure and treatment not carried out for other reasons; E78.5 Hyperlipidemia, unspecified; F17.210 Nicotine dependence, cigarettes, uncomplicated; Z82.49 Family history of ischemic heart disease and other diseases of the circulatory system; I25.10 Atherosclerotic heart disease of native coronary artery without angina pectoris; Z95.5 Presence of coronary angioplasty implant and graft; Z88.5 Allergy status to narcotic agent; Z79.82 Long term (current) use of aspirin; Z79.899 Other long term (current) drug therapy
CPT/HCPCS: 80048

== ENCOUNTER → 2020-06-25 | Outpatient (CLI) | payer BC ==
[2020-06-26 04:29] LABS: African American GFR (CKD) 97.1 (60.0-200.0); Anion Gap 10.5 mmol/L (4.00-12.00); Calcium 9.9 mg/dL (8.7-10.3); Carbon Dioxide 30.5 mmol/L (21.6-31.8); Non-African American GFR(CKD) 83.8 (60.0-200.0); Potassium 3.2 mmol/L (3.5-5.5)
== END | disposition home or self-care (01) ==
LOC: LABWHC1 16:19
PROVIDERS: ATTEND Internal Medicine Nephrology
DX: N17.9 Acute kidney failure, unspecified (principal)
CPT/HCPCS: 36415; 80048

== ENCOUNTER 2020-07-03 08:59 | Day surgery (SDC) | payer BC ==
[2020-07-02 09:18] VITALS: BMI 31.4
[2020-07-03] MEDS ORDERED: SODIUM CHLORIDE 0.9% 1,000 ML IV ONE (09:05)
[2020-07-03 09:45] VITALS: RESP 16; TEMP 98
[2020-07-03] MEDS ORDERED: POTASSIUM CHLORIDE ER 20 MEQ TAB.ER PO STA (10:27)
[2020-07-03] MEDS ORDERED: LIDOCAINE 1% INJ 10MG/ML (10 ML MDV) SQ ONE (11:55)
[2020-07-03] MEDS ORDERED: MIDAZOLAM 2 MG/2 ML VIAL IVP ONE (11:55)
[2020-07-03] MEDS ORDERED: fentaNYL (PF) 50 MCG/ML 2 ML AMP IVP ONE (11:55)
[2020-07-03] MEDS ORDERED: IOPAMIDOL-250 100ML BTL INTRAARTER ONE (12:08)
--- NOTE | 2020-07-03 14:09 | IR ---
Fluoroscopy HISTORY: Pain in leg 90 seconds fluoroscopy time supplied to the referring clinician. 198 intraoperative C-arm images doc ument the procedure. See dictated report from cardiology.
[2020-07-03 18:26] VITALS: BP 124/77; PULSE 84
--- NOTE | 2020-07-03 18:59 | AN ---
ANGIOGRAPHY REPORT DATE OF SERVICE: 07/03/2020 PERFORMING PHYSICIAN: Freddy De La Cruz M.D. PROCEDURES PERFORMED: 1. Abdominal aortogram. 2. Bilateral lower extremity runoff. INDICATION: This is a very pleasant 55-year-old gentleman with peripheral arterial disease who sees Dr. Polo regularly with known percutaneous peripheral intervention in the past, where he underwent in 2019 DONATIONS ATTENDANT of the right SFA and left SFA. He was seen in the office recently for bilateral lower extremity discomfort concerning for claudication and affecting the right leg more than the left leg. He underwent a CTA which came in to be concerning for severe disease involving the right common femoral artery. Because of that he was brought today to undergo an angiogram. APPROACH: Left common femoral artery. COMPLICATIONS: None. LEVEL OF SEDATION: Moderate, with sedation length of 13 minutes. PROCEDURE DESCRIPTION: After obtaining informed consent, the patient was brought to the cardiac clinical laboratory medical director. The left common femoral artery was cannulated using micropuncture technique. The micropuncture wire passed easily. Then I placed a 5-[place] sheath at the left common femoral artery. An abdominal aortogram and bilateral lower extremity runoff were performed using 5- [place] pigtail catheter which was initially placed at the level of the renal arteries, then it was pulled into above the bifurcation of the aorta to right and left common iliac arteries. The procedure was completed without any complication. SELECTIVE PERIPHERAL ANGIOGRAM: 1. The aorta appeared to have mild disease only. 2. Common iliac arteries. The right and left common iliac arteries appeared to be angiographically normal. 3. External iliac arteries. The right and left external iliac arteries appeared to be angiographically normal. 4. Internal iliac arteries. The right and left internal iliac arteries are patent. 5. Common femoral arteries. The internal iliac arteries, both internal, are patent. 6. SFA. The right SFA is diffusely diseased and the right SFA appeared to have mild to moderate diffuse disease up to about 30% to 40% distally just proximal to the [place] canal. The left SFA is stented proximally and the stent is patent. 7. Profundae. The right profunda appeared to be chronically occluded. The left profunda is patent. 8. Popliteals. The right and left popliteals appeared to have mild disease only. 9. Below the knee. There is 3-vessel runoff below the knee on the right side and 2- vessel runoff below the knee on the left side with posterior tibial and peroneal. CONCLUSION: 1. Mild aortoiliac disease. 2. Intermediate ulcerated lesion involving the right common femoral artery that appeared to be in the range of 30% to 40% only. There is also what seems to be chronic occlusion of the right profunda. 3. Patent stent in the left SFA proximally as well as distally. 4. Three-vessel runoff below the knee on the right side and two-vessel runoff below the knee on the left side. POST-PROCEDURE MANAGEMENT: 1. Consider medical treatment at this point. 2. Take an opinion from a vascular surgeon regarding revascularization of the profunda surgically. 3. Follow up with the patient. MMODL / IJN: [id number] /
--- NOTE | 2020-07-10 09:28 | CDI ---
Outpatient Documentation Clarification Form Date: 07/10/20 CDS/Chemistry Account Manager Name: Taylor Underwood Phone: If any questions, call [facility] Occupations Instructor at [phone] Patient Namer: [place]. Efra Jonas Admit Date: 07/03/20 Discharge Date: 07/03/20 ATTENTION: The [facility] Coding Staff appreciate your assistance in clarifying documentation Please respond to the clarification below the line at the bottom The [facility] Coding Staff will review the response and follow-up if needed. Please Note: Queries are made part of the Legal Health Record. If you have any questions, please contact the vocational case manager Dear Dr. De La Cruz, Please provide clarification as to the cause of the PAD. PAD/PVD is considered unspecified. Greatest specificity is required for medical necessity support Is the underlying cause of the Occlusive PAD one of the following? Arteriosclerotic disease of the arteries Arteritis Necrotic Due to embolism/thrombosis Other - Please specify below Thank you for your kind consideration. MTDD
== END 2020-07-03 18:03 | disposition home or self-care (01) ==
LOC: CATHCVL 08:59
PROVIDERS: ATTEND Internal Medicine Interventional Cardiology
DX: I70.213 Atherosclerosis of native arteries of extremities with intermittent claudication, bilateral legs (principal); F17.210 Nicotine dependence, cigarettes, uncomplicated; I10 Essential (primary) hypertension; E78.5 Hyperlipidemia, unspecified; Z20.822 Contact with and (suspected) exposure to COVID-19; Z95.820 Peripheral vascular angioplasty status with implants and grafts; Z82.49 Family history of ischemic heart disease and other diseases of the circulatory system; Z79.02 Long term (current) use of antithrombotics/antiplatelets; Z79.82 Long term (current) use of aspirin; Z79.899 Other long term (current) drug therapy
CPT/HCPCS: 36200; 75625; 75716; 84132; 87635; C1769 ×3; C1894; J2250; J3010; J2001; Q9966

== ENCOUNTER → 2021-04-22 | Outpatient (CLI) | payer OTHER ==
[2021-04-23 00:17] LABS: ALT 22 U/L (10-49); AST 16 U/L (14-35); African American GFR (CKD) 114.9 (60.0-200.0); Albumin 4.5 g/dL (3.8-4.9); Albumin/Globulin Ratio 1.88 (1.60-3.17); Alkaline Phosphatase 100 U/L (41-126); BUN/Creat Ratio 8.25 Ratio (12.00-20.00); Blood Urea Nitrogen 6.6 mg/dL (9.0-27.0); Calcium 9.5 mg/dL (8.7-10.3); Carbon Dioxide 22.7 mmol/L (20.0-27.5); Chloride 105 mmol/L (96-109); Chol/HDL Ratio 3.26 Ratio; Globulin 2.4 g/dL (1.6-3.3); Glucose 77 mg/dL (70-110); LDL Cholesterol,Calculated 58.7 mg/dL (0.0-131.0); Non-African American GFR(CKD) 99.2 (60.0-200.0); Potassium 3.5 mmol/L (3.5-5.5); Sodium 140 mmol/L (135-145); Total Protein 6.9 g/dL (6.2-8.2)
== END | disposition home or self-care (01) ==
LOC: LABWHC1 10:47
PROVIDERS: ATTEND Nurse Practitioner Adult Health
DX: E78.2 Mixed hyperlipidemia (principal)
CPT/HCPCS: 36415; 80053; 80061

== ENCOUNTER 2021-10-07 21:57 | Inpatient (IN) | payer OTHER ==
[2021-10-07] MEDS ORDERED: DEXAMETHASONE SOD PHOSPHATE 10 MG/ML 1 ML VIAL IVP STA (22:10)
[2021-10-07] MEDS ORDERED: ONDANSETRON 4 MG/2 ML VIAL IVP STA (22:10)
[2021-10-07] MEDS ORDERED: ACETAMINOPHEN TAB 500 MG TAB PO STA (22:10)
[2021-10-07] MEDS ORDERED: KETOROLAC 15 MG/ML 1 ML VIAL IVP STA (22:10)
--- NOTE | 2021-10-07 22:11 | ED ---
Chest Pain HPI - General Chief Complaint: Chest Pain Stated Complaint: Covid testing Time Seen by Provider: 10/07/21 22:09 Source: patient, RN notes reviewed, old records reviewed Mode of arrival: ambulatory Limitations: no limitations - History of Present Illness Initial Comments: This is a 56-year-old male presenting with chest pain today. Patient has had persistent chest pain.. Patient is scheduled for a stress test tomorrow. Patient tested positive for coronavirus today. Patient does have history of high blood pressure and prior CA. Chest pains are going on for days now. Patient also has noted fever or chills mild sweating MD Complaint: chest pain, other (Shortness of breath positive Kovic test) -: days(s) Onset: during rest, during exertion Pain Location: substernal Pain Radiation: none Severity: moderate Severity scale (1-10): 4 Quality: tightness, heaviness Consistency: intermittent Improves With: nothing Worsens With: exertion Context: recent illness (Patient doesn't positive for coronavirus today) Anginal Symptoms: diaphoresis, dyspnea Other Symptoms: palpitations Treatments Prior to Arrival: none - Related Data Home Medications Medication Instructions Recorded Confirmed Atorvastatin [Lipitor] 40 mg PO HS 01/29/19 07/03/20 Metoprolol Tartrate [Lopressor] 25 mg PO BID 01/29/19 07/03/20 Omeprazole [PriLOSEC] 20 mg PO AC-BID 01/29/19 07/03/20 Acetaminophen Tab [Tylenol Tab] 1,000 mg PO Q6H PRN 04/09/20 07/02/20 amLODIPine [Norvasc] 5 mg PO QAM 06/04/20 07/03/20 tadalafiL [Cialis] 20 mg PO DAILY PRN 06/04/20 07/03/20 Ergocalciferol [Vitamin D2 (1250 1,250 mcg PO WEEKLY 07/02/20 07/03/20 Mcg = 08467 Iu)] Furosemide [Lasix] 40 mg PO BID 07/02/20 07/03/20 Losartan [Cozaar] 50 mg PO DAILY 07/02/20 07/03/20 Potassium Gluconate [Potassium 99 mg PO DAILY 07/02/20 07/03/20 Gluconate ER] Spironolactone [Aldactone] 50 mg PO DAILY 07/02/20 07/03/20 Previous Rx's Medication Instructions Recorded Aspirin 81 mg PO DAILY chew 06/26/18 Nitroglycerin Sl Tabs [Nitrostat] 0.4 mg SUBLINGUAL Q5M PRN #25 tab 06/26/18 Prasugrel [Effient] 10 mg PO DAILY #90 tab 06/26/18 Allergies Allergy/AdvReac Type Severity Reaction Status Date / Time morphine topical Allergy blisteres,h Uncoded 10/07/21 21:59 karen Review of Systems ROS Statement: Those systems with pertinent positive or pertinent negative responses have been documented in the HPI. ROS Other: All systems not noted in ROS Statement are negative. EKG Findings - EKG Comments: EKG Findings:: EKG is sinus tachycardia 124 VA 144 QRS 108 QTc 376 Past Medical History Past Medical History: Chest Pain / Angina, GERD/Reflux, GI Bleed, Hypertension, Myocardial Infarction (CA), Osteoarthritis (OA), Vascular Disorder Additional Past Medical History / Comment(s): Peripheral Artery Disease, varicose veins, occassional headaches, rare migraines, hx bleeding ulcer-2018. Last Myocardial Infarction Date:: 06/24/18 History of Any Multi-Drug Resistant Organisms: None Reported Past Surgical History: Cholecystectomy, Heart Catheterization With Stent, Hernia Repair, Orthopedic Surgery, Tonsillectomy Additional Past Surgical History / Comment(s): ACL repair left knee, bone shaved, laser surgery to open arteries in bilateral legs, Aortogram, two stents left leg, one cardiac stent, umbilical hernia repair X4, inguinal hernia repair. Past Anesthesia/Blood Transfusion Reactions: No Reported Reaction Date of Last Stent Placement:: 06/2018 Past Psychological History: Anxiety Smoking Status: Current every day smoker Past Alcohol Use History: None Reported Past Drug Use History: None Reported - Past Family History Brother(s) Family Medical History: Deep Vein Thrombosis (DVT), Pulmonary Embolus Mother Family Medical History: Cancer Additional Family Medical History / Comment(s): kidney CA General Exam Limitations: no limitations General appearance: alert, in no apparent distress, anxious, lethargic Head exam: Present: atraumatic, normocephalic, normal inspection Eye exam: Present: normal appearance, PERRL, EOMI. Absent: scleral icterus, conjunctival injection, periorbital swelling ENT exam: Present: normal exam, mucous membranes dry Neck exam: Present: normal inspection. Absent: tenderness, meningismus, lymphadenopathy Respiratory exam: Present: normal lung sounds bilaterally. Absent: respiratory distress, wheezes, rales, rhonchi, stridor Cardiovascular Exam: Present: normal rhythm, tachycardia, normal heart sounds. Absent: systolic murmur, diastolic murmur, rubs, gallop, clicks GI/Abdominal exam: Present: soft, normal bowel sounds. Absent: distended, tenderness, guarding, rebound, rigid Extremities exam: Present: normal inspection, full ROM, normal capillary refill. Absent: tenderness, pedal edema, joint swelling, calf tenderness Back exam: Present: normal inspection Neurological exam: Present: alert, oriented X3, CN II-XII intact Psychiatric exam: Present: normal affect, normal mood Skin exam: Present: warm, dry, intact, normal color. Absent: rash Course Vital Signs 10/07/21 21:59 Temperature 100.3 F H Pulse Rate 129 H Respiratory 16 Rate Blood Pressure 147/78 O2 Sat by Pulse 98 Oximetry - Reevaluation(s) Reevaluation #1: 10/07/21 22:16 Medical records reviewed Reevaluation #2: 10/08/21 02:30 Patient has minimal to no improvement here in the ER Reevaluation #3: 10/08/21 02:31 Patient informed of results and questions answered - Consultations Consultation #1: Spoke with [facility] agree to admit this patient Chest Pain MDM - MDM 56 male who did present with chest pain known diagnosis of coronavirus, patient does have covert pneumonia on x-ray. Patient will be admitted for supportive care patient also complaining of chest pain chest pain times one week which he scheduled for stress test and echo. Patient be admitted for coronavirus and cardiology evaluation and management Disposition Clinical Impression: Chest pain, 2019 novel coronavirus detected, Pneumonia due to COVID-19 virus, Weakness, Hypokalemia, Fever Disposition: ADMITTED IP TO THIS HOSP Condition: Fair Is patient prescribed a controlled substance at d/c from ED?: No Referrals: Janel Leigh DO [Primary Care Provider] - 1-2 days Time of Disposition: 02:30
--- NOTE | 2021-10-07 23:13 | XR ---
EXAMINATION TYPE: XR chest 1V portable DATE OF EXAM: 10/07/2021 COMPARISON: 06/24/2018 HISTORY: Pneumonia TECHNIQUE: Single view FINDINGS: Heart is enlarged. There is some pulmonary interstitial infiltrates in the mid and lower vicki ng erickson. No pleural effusion. There are no hilar masses. There are chest leads. IMPRESSION: There is some interstitial pneumonia which is new compared to old exam. Acute mild heart failure also possible.
[2021-10-07 23:26] LABS: Basophils # (A) 0.1 k/uL (0-0.2); Basophils % (A) 2 %; Eosinophils # (A) 0.1 k/uL (0-0.7); Eosinophils % (A) 1 %; HCT 43.1 % (39.0-53.0); HGB 14.2 gm/dL (13.0-17.5); Lymphocytes # (A) 0.5 k/uL (1.0-4.8); Lymphocytes % (A) 9 %; MCV 99.9 fL (80.0-100.0); Macrocytosis Slight; Mean Platelet Volume 7.4; Monocytes # (A) 0.4 k/uL (0-1.0); Monocytes % (A) 8 %; Neutrophils % (A) 77 %; Platelet Count 286 k/uL (150-450); RBC 4.31 m/uL (4.30-5.90); RDW 14.7 % (11.5-15.5); WBC 5.3 k/uL (3.8-10.6)
[2021-10-07 23:39] LABS: INR 1.1 (<1.2); Partial Thromboplastin Time 28.3 sec (22.0-30.0); Prothrombin Time 11.3 sec (9.0-12.0)
[2021-10-08 00:10] LABS: ALT 17 U/L (4-49); AST 25 U/L (17-59); African American GFR (CKD) >90 (>60 ml/min/1.73 sqM); Albumin 4.1 g/dL (3.5-5.0); Alkaline Phosphatase 76 U/L (38-126); Anion Gap 13 mmol/L; Blood Urea Nitrogen 10 mg/dL (9-20); C Reactive Protein 2.8 mg/dL (<1.0); Calcium 8.7 mg/dL (8.4-10.2); Carbon Dioxide 27 mmol/L (22-30); Chloride 99 mmol/L (98-107); Glucose 108 mg/dL (74-99); LDH 565 U/L (313-618); Magnesium 1.7 mg/dL (1.6-2.3); Non-African American GFR(CKD) >90 (>60 ml/min/1.73 sqM); Sodium 139 mmol/L (137-145); Total Bilirubin 0.4 mg/dL (0.2-1.3); Total Protein 6.7 g/dL (6.3-8.2)
[2021-10-08 00:36] LABS: Potassium 2.7 mmol/L (3.5-5.1)
[2021-10-08] MEDS ORDERED: ACETAMINOPHEN TAB 325 MG TAB PO PRN (02:26)
[2021-10-08] MEDS ORDERED: NALOXONE 0.4 MG/ML 1 ML VIAL IV PRN (02:26)
[2021-10-08] MEDS ORDERED: IBUPROFEN 400 MG TAB PO PRN (02:26)
[2021-10-08] MEDS ORDERED: ONDANSETRON 4 MG/2 ML VIAL IVP PRN (02:26)
[2021-10-08] MEDS ORDERED: ALBUTEROL HFA INHALER INHALATION STA (02:28)
[2021-10-08] MEDS ORDERED: POTASSIUM CHLORIDE ER 20 MEQ TAB.ER PO STA ×2 (02:29)
[2021-10-08] MEDS: MORPHINE SULFATE 4 MG/ML SYRINGE IV PRN ×2 (04:50→20:23)
[2021-10-08] MEDS: SODIUM CHLORIDE 0.9% 1,000 ML IV SCH ×3 (05:58→17:52)
--- NOTE | 2021-10-08 07:58 | P.HPIM ---
History of Present Illness This is a pleasant 56 years old male with past medical history of Chest Pain / Angina, GERD/Reflux, GI Bleed, Hypertension, Myocardial Infarction (NE), Osteoarthritis , Peripheral Artery Disease, varicose veins, s/p Heart Catheterization With Stent, s/p two stents left leg, Current every day smoker Patient presents because of chest pain which is been going on for about a week, he sought Dr. Polo and he was scheduled for stress test and echocardiogram today. Chest pain is central, radiating to the left upper extremity, currently come down to 1/10 in severity sometimes sharp sometimes sick wheezing pain. It comes and goes. He had significantly severe episode on last Tuesday about 2 days ago that he thought he is going to . He says it was similar to his chest pain when he had a heart attack. Also has been complaining from left leg pain and numbness and currently he rates the pain about 5/10 it got significantly more severe with walking. He had stents 2 placed in his left [place] [address] Short. He smokes 1-1.5 pack per day and he was counseled to quit but he declines and he declines the nicotine patch. No alcohol or illicit drugsAlso has been complaining from headache for about a week about 7/10 with no numbness or weakness in arms or legs. No blurred vision or slurred speech Patient had a fever at home of 100.8. He has occasional dry cough with no phlegm. Patient had a fever of 100.3 on admission, heart rate 95, breathing rate around 22. Patient is saturating 96% on room air Labs show an unremarkable CBC, mild lymphopenia at 0.5. INR is 1.1. Potassium low at 2.7, rest of BMP and liver enzymes are unremarkable. LDH is normal at 565, troponin is -0.03, CRP is only mildly elevated at 2.8. ProBNP is 02/07/2011. Coronavirus detected EKG shows sinus tachycardia with occasional PVC at a rate of 124. No significant ST-T changes. Chest x-ray: There is some interstitial pneumonia which is new compared to old exam. Acute mild heart failure is also possible Review of Systems Review of systems CONSTITUTIONAL: No fever, no malaise, no fatigue. HEENT: No recent visual problems or hearing problems. Denied any sore throat. CARDIOVASCULAR: No orthopnea, PND, no palpitations, no syncope. PULMONARY: No shortness of breath, no cough, no hemoptysis. GASTROINTESTINAL: No diarrhea, no nausea, no vomiting, no abdominal pain. Normoactive bowel sounds. NEUROLOGICAL: No headaches, no weakness, no numbness. HEMATOLOGICAL: Denies any bleeding or petechiae. GENITOURINARY: Denies any burning micturition, frequency, or urgency. MUSCULOSKELETAL/RHEUMATOLOGICAL: Denies any joint pain, swelling, or any muscle pain. ENDOCRINE: Denies any polyuria or polydipsia. Past Medical History Past Medical History: Chest Pain / Angina, GERD/Reflux, GI Bleed, Hypertension, Myocardial Infarction (NE), Osteoarthritis (OA), Vascular Disorder Additional Past Medical History / Comment(s): Peripheral Artery Disease, varicose veins, occassional headaches, rare migraines, hx bleeding ulcer-2018. Last Myocardial Infarction Date:: 06/24/18 History of Any Multi-Drug Resistant Organisms: None Reported Past Surgical History: Cholecystectomy, Heart Catheterization With Stent, Hernia Repair, Orthopedic Surgery, Tonsillectomy Additional Past Surgical History / Comment(s): ACL repair left knee, bone shaved, laser surgery to open arteries in bilateral legs, Aortogram, two stents left leg, one cardiac stent, umbilical hernia repair X4, inguinal hernia repair. Past Anesthesia/Blood Transfusion Reactions: No Reported Reaction Date of Last Stent Placement:: 06/2018 Past Psychological History: Anxiety Smoking Status: Current every day smoker Past Alcohol Use History: None Reported Additional Past Alcohol Use History / Comment(s): Started smoking at age 7, smokes 1 1/2 PPD or less. Past Drug Use History: None Reported Additional Drug Use History / Comment(s): Hx rare Marijuana use, no use in 2 yrs. - Past Family History Brother(s) Family Medical History: Deep Vein Thrombosis (DVT), Pulmonary Embolus Mother Family Medical History: Cancer Additional Family Medical History / Comment(s): kidney CA Medications and Allergies Home Medications Medication Instructions Recorded Confirmed Type Aspirin 81 mg PO DAILY chew 06/26/18 10/08/21 Rx Nitroglycerin Sl Tabs [Nitrostat] 0.4 mg SUBLINGUAL Q5M PRN #25 tab 06/26/18 10/08/21 Rx Atorvastatin [Lipitor] 40 mg PO HS 01/29/19 10/08/21 History Omeprazole [PriLOSEC] 20 mg PO HS 01/29/19 10/08/21 History Acetaminophen Tab [Tylenol Tab] 1,000 mg PO Q6H PRN 04/09/20 10/08/21 History Furosemide [Lasix] 40 mg PO BID 07/02/20 10/08/21 History Potassium Gluconate [Potassium 99 mg PO DAILY 07/02/20 10/08/21 History Gluconate ER] Losartan Potassium [Cozaar] 100 mg PO DAILY 10/08/21 10/08/21 History Metoprolol Tartrate [Lopressor] 25 mg PO BID 10/08/21 10/08/21 History amLODIPine [Norvasc] 10 mg PO DAILY 10/08/21 10/08/21 History Allergies Allergy/AdvReac Type Severity Reaction Status Date / Time morphine topical Allergy blisteres,h Uncoded 10/07/21 21:59 karen Physical Exam Vitals: Vital Signs Temp Pulse Pulse Resp BP BP Pulse Ox 10/08/21 04:10 98.3 F 95 22 137/78 96 10/08/21 03:10 105 H 15 138/67 99 10/07/21 21:59 100.3 F H 129 H 16 147/78 98 Intake and Output 10/07/21 10/07/21 10/08/21 14:59 22:59 06:59 Intake Total 250 Balance 250 Intake: Oral 250 Other: Weight 83.915 kg 83.915 kg GENERAL: The patient is alert and oriented x3, not in any acute distress. Well developed, well nourished. HEENT: Pupils are round and equally reacting to light. EOMI. No scleral icterus. No conjunctival pallor. Normocephalic, atraumatic. No pharyngeal erythema. No thyromegaly. CARDIOVASCULAR: S1 and S2 present. No murmurs, rubs, or gallops. PULMONARY: Chest is clear to auscultation, no wheezing or crackles. ABDOMEN: Soft, nontender, nondistended, normoactive bowel sounds. No palpable organomegaly. MUSCULOSKELETAL: No joint swelling or deformity. EXTREMITIES: No cyanosis, clubbing, or pedal edema. NEUROLOGICAL: Gross neurological examination did not reveal any focal deficits. SKIN: No rashes. no petechiae. Results CBC & Chem 7: 10/07/21 23:05 10/07/21 23:05 Labs: Abnormal Lab Results - Last 24 Hours (Table) 10/07/21 10/07/21 10/08/21 Range/Units 23:05 23:05 03:05 Lymphocytes # 0.5 L (1.0-4.8) k/uL Potassium 2.7 L* (3.5-5.1) mmol/L Glucose 108 H (74-99) mg/dL C-Reactive Protein 2.8 H (<1.0) mg/dL Coronavirus (PCR) Detected A (Not Detectd) Thrombosis Risk Factor Assmnt - Choose All That Apply Each Factor Represents 1 point: Age 41-60 years, Obesity (BMI >25), Varicose veins Other Risk Factors: No Thrombosis Risk Factor Assessment Total Risk Factor Score: 3 Thrombosis Risk Factor Assessment Level: Moderate Risk Assessment and Plan Assessment: Chest pain, rule out cardiac causes covid infection with possible pneumonia without hypoxia Low-grade fever, most likely secondary to covid infection Left leg pain, with intermittent claudication Hypertension Nicotine dependence History of coronary artery disease status post stent History of osteoarthritis Peripheral vascular disease status post 2 stents in the left leg History of GERD obesity with BMI of 31.8 Plan: This is a pleasant 56 years old male who presents with chest pain We will do serial troponin Continue with Aspirin Cardiology consult Consult Dr. Short for his intermittent claudication and left leg pain. Check venous Doppler as well Continue with vitamin C, vitamin D and zinc. No need for steroids as patient is not hypoxic Check a pro-calcitonin Hold Cialis Labs and medication were reviewed.. Continue same treatment. Continue with symptomatic treatment. Resume home medication. Monitor lytes and vitals. DVT and GI prophylaxis. Further recommendations as per clinical course of the michela ent DVT prophylaxis: Subcutaneous Lovenox GI Prophylaxis: Ppi PT/OT: Pending Prognosis is guarded Discussed with bed side
[2021-10-08] MEDS: ALBUTEROL HFA INHALER INHALATION SCH ×4 (08:35→20:03)
[2021-10-08] MEDS ORDERED: PANTOPRAZOLE 40 MG/10 ML VIAL IV SCH (09:00)
[2021-10-08] MEDS: ENOXAPARIN 40 MG/0.4 ML SYRINGE SQ SCH (10:17)
[2021-10-08] MEDS ORDERED: Potassium Replacement Protocol 1 EACH MISC MISCELLANE PRN (10:17)
--- NOTE | 2021-10-08 10:17 | US ---
EXAMINATION TYPE: US venous doppler duplex LE LT DATE OF EXAM: 10/08/2021 10:00 AM COMPARISON: NONE CLINICAL HISTORY: leg pain. SIDE PERFORMED: Left TECHNIQUE: The lower extremity deep venous system is examined utilizing real time linear array sonog frankie with graded compression, doppler sonography and color-flow sonography. VESSELS IMAGED: Common Femoral Vein Deep Femoral Vein Greater Saphenous Vein * Femoral Vein Popliteal Vein Small Saphenous Vein * Proximal Calf Veins (* superficial vessels) Grayscale, color doppler, spectral doppler imaging performed of the deep veins of the lower extremiti es. There is normal flow, compressibility, vascular waveforms. Left Leg: Negative for DVT IMPRESSION: No evidence of deep venous thrombosis of the left lower extremity.
[2021-10-08] MEDS: METOPROLOL TARTRATE 25 MG TAB PO SCH ×2 (10:18→20:23)
[2021-10-08] MEDS: ASPIRIN 81 MG PO SCH (10:18)
[2021-10-08] MEDS: LOSARTAN 50 MG TAB PO SCH (10:18)
[2021-10-08] MEDS: CHOLECALCIFEROL 25 MCG (1000 IU) TABLET PO SCH (10:18)
[2021-10-08] MEDS: amLODIPine 10 MG TAB PO SCH (10:18)
[2021-10-08] MEDS: ZINC SULFATE 220 MG CAP PO SCH (10:19)
[2021-10-08] MEDS: ASCORBIC ACID 500 MG TAB PO SCH (10:19)
[2021-10-08] MEDS ORDERED: MAGNESIUM SULFATE-D5W PMX 1 GM in DEXTROSE/WATER 1 100ML.BAG IVPB ONE (11:15)
[2021-10-08] MEDS: NICOTINE 21MG/24HR PATCH TRANSDERM SCH (11:41)
--- NOTE | 2021-10-08 12:43 | P.CRDCN ---
History of Present Illness History of present illness: This is a 55 year old male with a past medical history of coronary artery disease status post PCI to the RCA in June 2018 and mild triple vessel coronary disease from cardiac cath in 04/2020, peripheral vascular disease with prior stenting to left SFA, hypertension, dyslipidemia, chronic tobacco use. He follows with Dr. Polo. We have been asked to see in consultation for chest pain. Patient presents to the ER with complaints of symptoms of fever, cough, chills, and night sweats that began yesterday. He took an at home Covid-19 test and it was positive. He also has been having symptoms of chest pain. On 10/01, last week he had an episode of exertional left side chest pain, radiating to his left arm. He had associated diaphoresis, shortness of breath and nausea. He states this was similar to his ME in the past. It lasted 20 minutes, he did not seek medical attention. He states over the past week he has been having intermittent left sided chest pain, radiating to his left arm. Describes it as stabbing. It has improved since last week, not as severe. He denies any asso ciated symptoms at this time. He also endorses worsening left leg pain and numbness and having significant difficulty with walking. He does continue to smoke cigarettes. DIAGNOSTICS * EKG reveals sinus tachycardia HR 124, incomplete right bundle branch block, PVC, no evidence of acute ischemia on EKG * Telemetry tracings indicate sinus rhythm, no arrythmia noted * Chest xray Interstitial pneumonia present * Laboratory reviewed, Covid positive, Troponin negative x 3, CBC unremarkable, sodium 139, potassium 2.7, BUN 10, serum creatinine 0.8, magnesium 1.7 * Cardiac catheterization 04/2020 revealed calcified coronary arteries with proximal mid LAD 2030 percent stenosis, left circumflex at the takeoff of the obtuse marginal branch with 30% plaque, stented segment of the RCA and, no evidence of in-stent restenosis. 4050 percent plaque in the PLV that has not progressed significantly compared to 2019. No evidence of high-grade stenosis. * Echo: 03/2020 revealed EF 60%, moderate LVH * Current home cardiac medications include losartan 100 mg daily, Lasix 40 mg twice a day, atorvastatin 40 mg nightly, amlodipine 10 mg daily, aspirin 81 mg daily REVIEW OF SYSTEMS At the time of my exam: CONSTITUTIONAL: + fever +chills. CARDIOVASCULAR: +chest pain, Denies shortness of breath, orthopnea, PND or palpitations. RESPIRATORY: + cough. GASTROINTESTINAL: Denies abdominal pain, diarrhea, constipation, nausea or vomiting. MUSCULOSKELETAL: Denies myalgias. NEUROLOGIC: Denies numbness, tingling, headacbe or weakness. ENDOCRINE: Denies fatigue, weight change, polydipsia or polyurina. GENITOURINARY: Denies burning, hematuria or urgency with micturation. HEMATOLOGIC: Denies history of anemia or bleeding. PHYSICAL EXAMINATION Vitals reviewed CONSTITUTIONAL: No apparent distress. HEENT: Head is normocephalic. Pupils are equal, round. Sclerae anicteric. Mucous membranes of the mouth are moist. No JVD. No carotid bruit. CHEST EXAMINATION: Lungs are diminished in the bases to auscultation. No chest wall tenderness is noted on palpation or with deep breathing. HEART EXAMINATION: Regular rate and rhythm. S1, S2 heard. No murmurs, gallops or rub. ABDOMEN: Soft, nontender. Positive bowel sounds. EXTREMITIES: 2+ right dorsal pedis pulses in RLE, Decreased pulse in the Left leg, Bilateral legs and feet are warm, no lower extremity edema. Patient does have LLE pain and numbness NEUROLOGIC EXAMINATION: Patient is awake, alert and oriented x3. ASSESSMENT Covid-19 Infection Hypokalemia Symptoms of fever, chills, cough, night sweats Chest pain, acute coronary syndrome has been ruled out Left lower extremity numbness and pain Coronary artery disease status post PCI to the RCA in June 2018, mild triple vessel coronary disease from cardiac cath in 04/2020 Peripheral vascular disease with prior stenting to left SFA Hypertension Dyslipidemia Chronic tobacco use PLAN Acute coronary syndrome has been ruled out Replace potassium per protocol Continue home aspirin, statin, losartan and metoprolol tartrate, amlodipine Hold Lasix Recommend Echocardiogram and stress test vs cardiac catheterization as an outpatient Nurse practitioner note has been reviewed by physician. Signing provider agrees with the documented findings, assessment, and plan of care. Past Medical History Past Medical History: Chest Pain / Angina, GERD/Reflux, GI Bleed, Hypertension, Myocardial Infarction (ME), Osteoarthritis (OA), Vascular Disorder Additional Past Medical History / Comment(s): Peripheral Artery Disease, varicose veins, occassional headaches, rare migraines, hx bleeding ulcer-2018. Last Myocardial Infarction Date:: 06/24/18 History of Any Multi-Drug Resistant Organisms: None Reported Past Surgical History: Cholecystectomy, Heart Catheterization With Stent, Hernia Repair, Orthopedic Surgery, Tonsillectomy Additional Past Surgical History / Comment(s): ACL repair left knee, bone shaved, laser surgery to open arteries in bilateral legs, Aortogram, two stents left leg, one cardiac stent, umbilical hernia repair X4, inguinal hernia repair. Past Anesthesia/Blood Transfusion Reactions: No Reported Reaction Date of Last Stent Placement:: 06/2018 Past Psychological History: Anxiety Smoking Status: Current every day smoker Past Alcohol Use History: None Reported Additional Past Alcohol Use History / Comment(s): Started smoking at age 7, smokes 1 1/2 PPD or less. Past Drug Use History: None Reported Additional Drug Use History / Comment(s): Hx rare Marijuana use, no use in 2 yrs. - Past Family History Brother(s) Family Medical History: Deep Vein Thrombosis (DVT), Pulmonary Embolus Mother Family Medical History: Cancer Additional Family Medical History / Comment(s): kidney CA Medications and Allergies Home Medications Medication Instructions Recorded Confirmed Type Aspirin 81 mg PO DAILY chew 06/26/18 10/08/21 Rx Nitroglycerin Sl Tabs [Nitrostat] 0.4 mg SUBLINGUAL Q5M PRN #25 tab 06/26/18 10/08/21 Rx Atorvastatin [Lipitor] 40 mg PO HS 01/29/19 10/08/21 History Omeprazole [PriLOSEC] 20 mg PO HS 01/29/19 10/08/21 History Acetaminophen Tab [Tylenol Tab] 1,000 mg PO Q6H PRN 04/09/20 10/08/21 History Furosemide [Lasix] 40 mg PO BID 07/02/20 10/08/21 History Potassium Gluconate [Potassium 99 mg PO DAILY 07/02/20 10/08/21 History Gluconate ER] Losartan Potassium [Cozaar] 100 mg PO DAILY 10/08/21 10/08/21 History Metoprolol Tartrate [Lopressor] 25 mg PO BID 10/08/21 10/08/21 History amLODIPine [Norvasc] 10 mg PO DAILY 10/08/21 10/08/21 History tadalafiL [Cialis] 20 mg PO DAILY PRN 10/08/21 10/08/21 History traZODone HCL 100 mg PO HS 10/08/21 10/08/21 History Allergies Allergy/AdvReac Type Severity Reaction Status Date / Time morphine topical Allergy blisteres,h Uncoded 10/07/21 21:59 karen Physical Exam Vitals: Vital Signs Temp Pulse Pulse Resp BP BP Pulse Ox 10/08/21 04:10 98.3 F 95 22 137/78 96 10/08/21 03:10 105 H 15 138/67 99 10/07/21 21:59 100.3 F H 129 H 16 147/78 98 Intake and Output 10/07/21 10/08/21 10/08/21 22:59 06:59 14:59 Intake Total 250 Balance 250 Intake: Oral 250 Other: Weight 83.915 kg 83.915 kg Results 10/07/21 23:05 10/08/21 09:29 Cardiac Enzymes 10/07/21 10/08/21 Range/Units 23:05 04:15 AST 25 (17-59) U/L Lactate Dehydrogenase 565 (313-618) U/L Troponin I 0.032 (0.000-0.034) ng/mL Coagulation 10/07/21 Range/Units 23:05 PT 11.3 (9.0-12.0) sec APTT 28.3 (22.0-30.0) sec CBC 10/07/21 Range/Units 23:05 WBC 5.3 (3.8-10.6) k/uL RBC 4.31 (4.30-5.90) m/uL Hgb 14.2 (13.0-17.5) gm/dL Hct 43.1 (39.0-53.0) % Plt Count 286 (150-450) k/uL Comprehensive Metabolic Panel 10/07/21 Range/Units 23:05 Sodium 139 (137-145) mmol/L Potassium 2.7 L* (3.5-5.1) mmol/L Chloride 99 (98-107) mmol/L Carbon Dioxide 27 (22-30) mmol/L BUN 10 (9-20) mg/dL Creatinine 0.86 (0.66-1.25) mg/dL Glucose 108 H (74-99) mg/dL Calcium 8.7 (8.4-10.2) mg/dL AST 25 (17-59) U/L ALT 17 (4-49) U/L Alkaline Phosphatase 76 (38-126) U/L Total Protein 6.7 (6.3-8.2) g/dL Albumin 4.1 (3.5-5.0) g/dL Current Medications Generic Name Dose Route Start Last Admin Trade Name Freq PRN Reason Stop Dose Admin Acetaminophen 650 mg 10/08/21 02:26 Acetaminophen Tab 325 Mg Tab PO Q6HR PRN Mild Pain or Fever > 100.5 Albuterol Sulfate 2 puff 10/08/21 08:00 Albuterol Hfa Inhaler INHALATION RT-QID [facility] Ascorbic Acid 1,000 mg 10/08/21 09:00 Ascorbic Acid 500 Mg Tab PO DAILY [facility] Cholecalciferol 50 mcg 10/08/21 09:00 Cholecalciferol 25 Mcg (1000 Iu) Tablet PO DAILY [facility] Enoxaparin Sodium 40 mg 10/08/21 09:00 Enoxaparin 40 Mg/0.4 Ml Syringe SQ DAILY [facility] Sodium Chloride 1,000 mls @ 130 mls/hr 10/08/21 02:30 10/08/21 05:58 Saline 0.9% IV Not Given .[id number] [facility] Ibuprofen 400 mg 10/08/21 02:26 Ibuprofen 400 Mg Tab PO Q6HR PRN Mild Pain or Fever > 100.5 Morphine Sulfate 4 mg 10/08/21 02:26 10/08/21 04:50 Morphine Sulfate 4 Mg/Ml Syringe IV 4 mg Q4HR PRN Administration Severe Pain (Scale 7 to 10) Naloxone HCl 0.2 mg 10/08/21 02:26 Naloxone 0.4 Mg/Ml 1 Ml Vial IV Q2M PRN Opioid Reversal Ondansetron HCl 4 mg 10/08/21 02:26 Ondansetron 4 Mg/2 Ml Vial IVP Q8HR PRN Nausea And Vomiting Pantoprazole Sodium 40 mg 10/08/21 09:00 Pantoprazole 40 Mg/10 Ml Vial IV DAILY [facility] Zinc Sulfate 220 mg 10/08/21 09:00 Zinc Sulfate 220 Mg Cap PO DAILY [facility] Intake and Output 10/07/21 10/08/21 10/08/21 22:59 06:59 14:59 Intake Total 250 Balance 250 Intake: Oral 250 Other: Weight 83.915 kg 83.915 kg 10/07/21 23:05 10/07/21 23:05
[2021-10-08] MEDS: POTASSIUM CHLORIDE ER 20 MEQ TAB.ER PO SCH ×2 (12:48→14:00)
[2021-10-08] MEDS: HYDROcodone/APAP 5-325MG 1 EACH TAB PO PRN (17:52)
--- NOTE | 2021-10-08 19:20 | CT ---
EXAMINATION TYPE: CT chest angio for PE DATE OF EXAM: 10/08/2021 COMPARISON: None available HISTORY: elevated d-dimer CT DLP: 423.6 mGycm Automated exposure control for dose reduction was used. CONTRAST: CT Chest for pulmonary embolism performed with with IV Contrast, patient injected with 100 mL of Isov ue 370. FINDINGS: LUNGS: The lungs are grossly clear, there is no concerning parenchymal mass or nodule identified. T here is no pleural effusion or pneumothorax seen. The tracheobronchial tree is patent. MEDIASTINUM: There is satisfactory enhancement of the pulmonary artery and its branches, there is no CT evidence for pulmonary embolism. There are no greater than 1 cm hilar or mediastinal lymph nodes. No pericardial effusion is seen. OTHER: Stable 7 mm low-attenuation right hepatic focus without suspicious features and probably cyst . IMPRESSION: No acute PE or cardiopulmonary abnormality.
[2021-10-08] MEDS ORDERED: ATORVASTATIN 40 MG TAB PO SCH (21:00)
[2021-10-09] MEDS: HYDROcodone/APAP 5-325MG 1 EACH TAB PO PRN ×3 (00:01→15:29)
[2021-10-09] MEDS: MORPHINE SULFATE 4 MG/ML SYRINGE IV PRN (04:52)
[2021-10-09] MEDS: SODIUM CHLORIDE 0.9% 1,000 ML IV SCH (04:52)
[2021-10-09 05:06] VITALS: PULSE 78
[2021-10-09 07:26] LABS: ALT 17 U/L (4-49); AST 25 U/L (17-59); African American GFR (CKD) >90 (>60 ml/min/1.73 sqM); Albumin 3.6 g/dL (3.5-5.0); Alkaline Phosphatase 72 U/L (38-126); Anion Gap 8 mmol/L; Blood Urea Nitrogen 11 mg/dL (9-20); Carbon Dioxide 29 mmol/L (22-30); Chloride 104 mmol/L (98-107); Glucose 103 mg/dL (74-99); Magnesium 2.1 mg/dL (1.6-2.3); Non-African American GFR(CKD) >90 (>60 ml/min/1.73 sqM); Phosphorus 3.1 mg/dL (2.5-4.5); Potassium 3.2 mmol/L (3.5-5.1); Sodium 141 mmol/L (137-145); Total Bilirubin 0.2 mg/dL (0.2-1.3)
[2021-10-09] MEDS ORDERED: PANTOPRAZOLE 40 MG TABLET PO SCH (07:30)
[2021-10-09 07:31] LABS: Basophils % (A) 0 %; Eosinophils % (A) 0 %; HCT 45.7 % (39.0-53.0); HGB 14.5 gm/dL (13.0-17.5); Hypochromasia Slight; Lymphocytes % (A) 21 %; MCH 32.4 pg (25.0-35.0); MCHC 31.7 g/dL (31.0-37.0); MCV 102.1 fL (80.0-100.0); Macrocytosis Slight; Mean Platelet Volume 7.6; Monocytes # (A) 0.5 k/uL (0-1.0); Monocytes % (A) 10 %; Neutrophils # (A) 3.1 k/uL (1.3-7.7); Neutrophils % (A) 65 %; Platelet Count 271 k/uL (150-450); RBC 4.47 m/uL (4.30-5.90); RDW 14.8 % (11.5-15.5); WBC 4.8 k/uL (3.8-10.6)
[2021-10-09] MEDS: ALBUTEROL HFA INHALER INHALATION SCH ×3 (07:37→16:22)
[2021-10-09 08:40] VITALS: RESP 16; TEMP 97.8
[2021-10-09] MEDS: ZINC SULFATE 220 MG CAP PO SCH (08:43)
[2021-10-09] MEDS: METOPROLOL TARTRATE 25 MG TAB PO SCH (08:43)
[2021-10-09] MEDS: ASCORBIC ACID 500 MG TAB PO SCH (08:43)
[2021-10-09] MEDS: NICOTINE 21MG/24HR PATCH TRANSDERM SCH (08:43)
[2021-10-09] MEDS: LOSARTAN 50 MG TAB PO SCH (08:43)
[2021-10-09] MEDS: ASPIRIN 81 MG PO SCH (08:43)
[2021-10-09] MEDS: CHOLECALCIFEROL 25 MCG (1000 IU) TABLET PO SCH (08:43)
[2021-10-09] MEDS: amLODIPine 10 MG TAB PO SCH (08:43)
[2021-10-09] MEDS: ENOXAPARIN 40 MG/0.4 ML SYRINGE SQ SCH (08:43)
--- NOTE | 2021-10-09 11:47 | P.PN ---
Subjective This is a 55 year old male with a past medical history of coronary artery disease status post PCI to the RCA in June 2018 and mild triple vessel coronary disease from cardiac cath in 04/2020, peripheral vascular disease with prior stenting to left SFA, hypertension, dyslipidemia, chronic tobacco use. He follows with Dr. Polo. We have been asked to see in consultation for chest pain. Patient presents to the ER with complaints of symptoms of fever, cough, chills, and night sweats that began yesterday. He took an at home Covid-19 test and it was positive. He also has been having symptoms of chest pain. On 10/01, last week he had an episode of exertional left side chest pain, radiating to his left arm. He had associated diaphoresis, shortness of breath and nausea. He states this was similar to his VT in the past. It lasted 20 minutes, he did not seek medical attention. He states over the past week he has been having intermittent left sided chest pain, radiating to his left arm. Describes it as stabbing. It has improved since last week, not as severe. He denies any associated symptoms at this time. He also endorses worsening left leg pain and numbness and having significant difficulty with walking. He does continue to smoke cigarettes. DIAGNOSTICS * Chest xray Interstitial pneumonia present * Cardiac catheterization 04/2020 revealed calcified coronary arteries with proximal mid LAD 2030 percent stenosis, left circumflex at the takeoff of the obtuse marginal branch with 30% plaque, stented segment of the RCA and, no evidence of in-stent restenosis. 4050 percent plaque in the PLV that has not progressed significantly compared to 2019. No evidence of high-grade stenosis. * Echo: 03/2020 revealed EF 60%, moderate LVH * Current home cardiac medications include losartan 100 mg daily, Lasix 40 mg twice a day, atorvastatin 40 mg nightly, amlodipine 10 mg daily, aspirin 81 mg daily 10/09/2021 Patient seen and examined at bedside, no acute distress. Denies any chest pain or shortness of breath. His main complaint is his left lower extremity pain. His vital signs are stable. PHYSICAL EXAMINATION Vitals reviewed CONSTITUTIONAL: No apparent distress. HEENT: Head is normocephalic. Pupils are equal, round. Sclerae anicteric. Mucous membranes of the mouth are moist. No JVD. No carotid bruit. CHEST EXAMINATION: Lungs are diminished in the bases to auscultation. No chest wall tenderness is noted on palpation or with deep breathing. HEART EXAMINATION: Regular rate and rhythm. S1, S2 heard. No murmurs, gallops or rub. ABDOMEN: Soft, nontender. Positive bowel sounds. EXTREMITIES: 2+ right dorsal pedis pulses in RLE, Decreased pulse in the Left leg, Bilateral legs and feet are warm, no lower extremity edema. Patient does have LLE pain and numbness NEUROLOGIC EXAMINATION: Patient is awake, alert and oriented x3. ASSESSMENT Covid-19 Infection Hypokalemia Symptoms of fever, chills, cough, night sweats Chest pain, acute coronary syndrome has been ruled out Left lower extremity numbness and pain that has been ongoing for 1 year Coronary artery disease status post PCI to the RCA in June 2018, mild triple vessel coronary disease from cardiac cath in 04/2020 Peripheral vascular disease with prior stenting to left SFA Hypertension Dyslipidemia Chronic tobacco use PLAN Acute coronary syndrome has been ruled out Replace potassium per protocol Continue home aspirin, statin, losartan and metoprolol tartrate, amlodipine Hold Lasix Recommend Echocardiogram and stress test as an outpatient. Recommend follow up with Dr. Polo as an outpatient in regards to his PVD, patient with follow up on 10/20. Smoking cessation discussed with patient and highly recommended Stable for discharge from a cardiology perspective. Nurse practitioner note has been reviewed by physician. Signing provider agrees with the documented findings, assessment, and plan of care. Objective - Vital Signs Vital signs: Vital Signs Temp 97.8 F 10/09/21 08:38 Pulse 78 10/09/21 08:38 Resp 16 10/09/21 08:38 BP 134/77 10/09/21 08:38 Pulse Ox 96 10/09/21 08:38 FiO2 Intake & Output 10/08/21 10/09/21 10/09/21 18:59 06:59 18:59 Intake Total 240 480 120 Balance 240 480 120 Intake: Oral 240 480 120 Other: Voiding Method Toilet Toilet # Voids 2 - Labs CBC & Chem 7: 10/09/21 06:33 10/09/21 06:33 Labs: Abnormal Lab Results - Last 24 Hours (Table) 10/09/21 10/09/21 Range/Units 06:33 06:33 MCV 102.1 H (80.0-100.0) fL Potassium 3.2 L (3.5-5.1) mmol/L Glucose 103 H (74-99) mg/dL Calcium 8.0 L (8.4-10.2) mg/dL Total Protein 6.0 L (6.3-8.2) g/dL
[2021-10-09 11:48] VITALS: BP 136/86
[2021-10-09] MEDS: POTASSIUM CHLORIDE ER 20 MEQ TAB.ER PO SCH ×2 (12:11→13:36)
--- NOTE | 2021-10-09 15:01 | P.CNPUL ---
History of Present Illness Consult date: 10/09/21 History of present illness: I was asked to evaluate this patient's pulmonary status as the patient was diagnosed to be COVID 19 positive during this current admission. The patient is a chronic smoker and he has extensive smoking history of around 2 packs of cigarettes a day and his been smoking since age of 7. His coronary artery disease, previous PCI to RCA and stenting and the patient is known to have mild triple-vessel coronary artery disease based on the cardiac catheterization from April 2020 and he is also known to have peripheral vascular disease with pre vious stenting of the SFA on the left. He has chronic claudication. Other comorbid conditions include hypertension and hyperlipidemia. He was having some chest pain more suggestive of angina and the patient is going to have an outpatient cardiac catheterization. His chest x-ray shows no other significant acute abnormalities. CT angiogram showed no evidence of any pulmonary embolism and there is no evidence of pneumonia. Oxygenation is within normal and the patient's pulse ox is 95-96% on room air oxygen. The patient's EKG showing a normal sinus rhythm. His blood work is essentially unremarkable for now with a white cell count 4.8 with hemoglobin 14.5 and a platelet count of 271. D-dimer is at 0.9. Electrolytes all within normal limits. His pro calcitonin level is at 0.06. No loss of taste or smell. No diarrhea. No shortness of breath. No cough. No sputum production. No previous vaccination for COVID 19. His is at home and she is also infected with the same virus. Review of Systems Constitutional: Denies chills, Denies fever Eyes: denies as per HPI, denies blurred vision, denies bulging eye, denies decreased vision, denies diplopia, denies discharge, denies dry eye, denies irritation, denies itching, denies pain, denies photophobia, denies loss of peripheral vision, denies loss of vision, denies tunnel vision/blind spots Ears: deny: decreased hearing, ear discharge, earache, tinnitus Ears, nose, mouth and throat: Reports as per HPI Breasts: absent: as per HPI, gynecomastia Cardiovascular: Reports chest pain, Reports claudication Respiratory: Reports as per HPI Gastrointestinal: Reports as per HPI Genitourinary: Reports as per HPI Musculoskeletal: Reports as per HPI Musculoskeletal: absent: ankle pain, ankle stiffness, ankle swelling, as per HPI, elbow pain, elbow stiffness, elbow swelling, foot pain, foot stiffness, foot swelling, hand pain, hand stiffness, hand swelling, hip pain, hip stiffness, hip swelling, knee pain, knee stiffness, knee swelling, shoulder pain, shoulder stiffness, shoulder swelling, wrist pain, wrist stiffness, wrist swelling Integumentary: Reports as per HPI Neurological: Reports as per HPI Psychiatric: Reports as per HPI Endocrine: Reports as per HPI Hematologic/Lymphatic: Reports as per HPI Allergic/Immunologic: Reports as per HPI Past Medical History Past Medical History: Chest Pain / Angina, GERD/Reflux, GI Bleed, Hypertension, Myocardial Infarction ([place]), Osteoarthritis (OA), Vascular Disorder Additional Past Medical History / Comment(s): Peripheral Artery Disease, varicose veins, occassional headaches, rare migraines, hx bleeding ulcer-2018. Last Myocardial Infarction Date:: 06/24/18 History of Any Multi-Drug Resistant Organisms: None Reported Past Surgical History: Cholecystectomy, Heart Catheterization With Stent, Hernia Repair, Orthopedic Surgery, Tonsillectomy Additional Past Surgical History / Comment(s): ACL repair left knee, bone shaved, laser surgery to open arteries in bilateral legs, Aortogram, two stents left leg, one cardiac stent, umbilical hernia repair X4, inguinal hernia repair. Past Anesthesia/Blood Transfusion Reactions: No Reported Reaction Date of Last Stent Placement:: 06/2018 Past Psychological History: Anxiety Smoking Status: Current every day smoker Past Alcohol Use History: None Reported Additional Past Alcohol Use History / Comment(s): Started smoking at age 7, smokes 1 1/2 PPD or less. Past Drug Use History: None Reported Additional Drug Use History / Comment(s): Hx rare Marijuana use, no use in 2 yrs. - Past Family History Brother(s) Family Medical History: Deep Vein Thrombosis (DVT), Pulmonary Embolus Mother Family Medical History: Cancer Additional Family Medical History / Comment(s): kidney CA Medications and Allergies Home Medications Medication Instructions Recorded Confirmed Type Aspirin 81 mg PO DAILY chew 06/26/18 10/08/21 Rx Nitroglycerin Sl Tabs [Nitrostat] 0.4 mg SUBLINGUAL Q5M PRN #25 tab 06/26/18 10/08/21 Rx Atorvastatin [Lipitor] 40 mg PO HS 01/29/19 10/08/21 History Omeprazole [PriLOSEC] 20 mg PO HS 01/29/19 10/08/21 History Acetaminophen Tab [Tylenol Tab] 1,000 mg PO Q6H PRN 04/09/20 10/08/21 History Furosemide [Lasix] 40 mg PO BID 07/02/20 10/08/21 History Potassium Gluconate [Potassium 99 mg PO DAILY 07/02/20 10/08/21 History Gluconate ER] Losartan Potassium [Cozaar] 100 mg PO DAILY 10/08/21 10/08/21 History Metoprolol Tartrate [Lopressor] 25 mg PO BID 10/08/21 10/08/21 History amLODIPine [Norvasc] 10 mg PO DAILY 10/08/21 10/08/21 History tadalafiL [Cialis] 20 mg PO DAILY PRN 10/08/21 10/08/21 History traZODone HCL 100 mg PO HS 10/08/21 10/08/21 History Allergies Allergy/AdvReac Type Severity Reaction Status Date / Time morphine topical Allergy blisteres,h Uncoded 10/07/21 21:59 karen Physical Exam Vitals: Vital Signs Temp Pulse Resp BP Pulse Ox 10/09/21 14:00 78 16 10/09/21 11:47 78 16 136/86 96 10/09/21 08:38 97.8 F 78 16 134/77 96 10/09/21 08:00 78 16 10/09/21 04:40 98.4 F 78 22 123/72 97 10/09/21 00:05 97.4 F L 73 20 136/81 98 10/08/21 19:50 98.3 F 92 20 124/70 96 10/08/21 16:16 96.8 F L 98 14 127/71 93 L Intake and Output 10/08/21 10/09/21 10/09/21 22:59 06:59 14:59 Intake Total 240 240 120 Balance 240 240 120 Intake: Oral 240 240 120 Other: Voiding Method Toilet # Voids 2 CONSTITUTIONAL: No apparent distress. calm and comfortable currently on room air oxygen Head exam was generally normal. There was no scleral icterus or corneal arcus. Mucous membranes were moist. HEENT: Head is normocephalic. Pupils are equal, round. Sclerae anicteric. Mucous membranes of the mouth are moist. No JVD. No carotid bruit. CHEST EXAMINATION: Lungs are diminished in the bases to auscultation. No chest wall tenderness is noted on palpation or with deep breathing. HEART EXAMINATION: Regular rate and rhythm. S1, S2 heard. No murmurs, gallops or rub. ABDOMEN: Abdominal exam revealed normal bowel sounds. The abdomen was soft, non- tender, and without masses, organomegaly, or appreciable enlargement of the abdominal aorta. EXTREMITIES: 2+ right dorsal pedis pulses in RLE, Decreased pulse in the Left leg, Bilateral legs and feet are warm, no lower extremity edema. Patient does have LLE pain and numbness NEUROLOGIC EXAMINATION: Neurologically, the patient is awake and alert and the patient does not have any focal neurological deficit. Cranial nerves are essentially intact. Examination of the skin revealed no evidence of significant rashes, suspicious appearing nevi or other concerning lesions. Results - Laboratory Findings CBC and BMP: 10/09/21 06:33 10/09/21 06:33 PT/INR, D-dimer PT 11.3 sec (9.0-12.0) 10/07/21 23:05 INR 1.1 (<1.2) 10/07/21 23:05 D-Dimer 0.94 mg/L FEU (<0.60) H 10/08/21 10:41 Abnormal lab findings: Abnormal Labs 10/07/21 10/07/21 10/08/21 23:05 23:05 03:05 MCV Lymphocytes # 0.5 L D-Dimer Potassium 2.7 L* Glucose 108 H Calcium C-Reactive Protein 2.8 H Total Protein Coronavirus (PCR) Detected A 10/08/21 10/08/21 10/09/21 09:29 10:41 06:33 MCV 102.1 H Lymphocytes # D-Dimer 0.94 H Potassium 3.2 L Glucose Calcium C-Reactive Protein Total Protein Coronavirus (PCR) 10/09/21 06:33 MCV Lymphocytes # D-Dimer Potassium 3.2 L Glucose 103 H Calcium 8.0 L C-Reactive Protein Total Protein 6.0 L Coronavirus (PCR) - Diagnostic Findings Chest x-ray: image reviewed CT scan - chest: image reviewed Assessment and Plan Plan: acute COVID 19 infection, unvaccinated,symptom onset approximately 3 days ago mainly some scratchiness in his throat without any significant history distress or any signs of hypoxemia or pneumonia. D-dimer is negative and a CT angiogram showed no evidence of any pulmonary embolism and there is no evidence of any pulmonary infiltration or pneumonia. Coronary artery disease with previous PCI to RCA and the patient is known to have mild triple-vessel disease, last cardiac catheterization is on April 2020 Chest pain under investigation, likely need a outpatient cardiac stress testing and catheterization Peripheral vascular disease with history of claudication with previous stenting of SFA on the left Chronic smoking Hypertension Hyperlipidemia Preserved LV function based on the previous echocardiogram Hypertensive heart disease with moderate LVH Plan Asymptomatic COVID 19 infection that warrants no further treatment Monitor the COVID 19 infection including oxygenation and respiratory status and Back should there be any worsening no need for steroids Patient can be discharged from the pulmonary standpoint patient is still within the window for Paxlovid and this can be taken outpatient basis of discharge today based on his comorbid conditions. Patient showed no interest to any treatment for COVID 19 Clearance will be needed from cardiology
--- NOTE | 2021-10-09 17:14 | CA ---
Transthoracic Echo Report Name: Efra Blair Age: 56 Gender: M : 1965 Exam Date: 10/09/2021 09:12 Exam Location: [facility] Ht (in): 64 Wt (lb): 185 Ordering Physician: Bret Calabrese MD Attending/Referring Phys: [id number], [place] [facility] Locator Mercy Boyd RDCS Procedure CPT: Indications: Chest Pain Cardiac Hx: Technical Quality: Fair Contrast 1: Total Dose (mL): Contrast 2: Total Dose (mL): MEASUREMENTS (Male / Female) Normal Values 2D ECHO LV Diastolic Diameter PLAX 4.2 cm 4.2 - 5.9 / 3.9 - 5.3 cm LV Systolic Diameter PLAX 3.0 cm IVS Diastolic Thickness 1.7 cm 0.6 - 1.0 / 0.6 - 0.9 cm LVPW Diastolic Thickness 1.8 cm 0.6 - 1.0 / 0.6 - 0.9 cm LV Relative Wall Thickness 0.8 RV Internal Dim ED PLAX 3.5 cm LA Volume 59.8 cm??? 18 - 58 / 22 - 52 cm??? M-MODE Aortic Root Diameter MM 3.0 cm LA Systolic Diameter MM 3.6 cm LA Ao Ratio MM 1.2 AV Cusp Separation MM 1.7 cm DOPPLER AV Peak Velocity 125.1 cm/s AV Peak Gradient 6.3 mmHg LVOT Peak Velocity 80.8 cm/s LVOT Peak Gradient 2.6 mmHg MV Area PHT 3.5 cm??? Mitral E Point Velocity 98.8 cm/s Mitral A Point Velocity 112.8 cm/s Mitral E to A Ratio 0.9 MV Deceleration Time 218.4 ms MV E' Velocity 6.0 cm/s Mitral E to MV E' Ratio 16.6 TR Peak Velocity 174.3 cm/s TR Peak Gradient 12.2 mmHg Right Ventricular Systolic Press 16.2 mmHg FINDINGS Left Ventricle Moderately increased left ventricular wall thickness. Normal left ventricular systolic function with no obvious regional wall motion abnormalities. Left ventricular ejection fraction is estimated at 55-60 %. Right Ventricle Mild right ventricular dilatation. Right Atrium Normal right atrial size. Left Atrium Mildly increased left atrial volume. No evidence for an atrial septal defect. Mitral Valve Mild mitral annular calcification. Trace to mild mitral regurgitation. Aortic Valve No aortic valve stenosis or regurgitation. Tricuspid Valve Structurally normal tricuspid valve. Mild tricuspid regurgitation. Pulmonic Valve Trace pulmonic regurgitation. Pericardium No pericardial effusion. Aorta Normal size aortic root and proximal ascending aorta. CONCLUSIONS Moderate LVH Normal left ventricular EF 55-60% Mildly dilated left atrium Trace to mild mitral regurgitation Mild tricuspid regurgitation RVSP 16 Previewed by: Dr. Az Stack DO (Electronically Signed) Final Date: 09 October 2021 17:14
== END 2021-10-09 16:29 | disposition home or self-care (01) | DRG 177 ==
LOC: EC 21:57 → 3SCARD 10-08 02:26
PROVIDERS: ADMIT Hospitalist; ATTEND Hospitalist
DX: U07.1 COVID-19 (principal); J12.82 Pneumonia due to coronavirus disease 2019; I73.9 Peripheral vascular disease, unspecified; F17.210 Nicotine dependence, cigarettes, uncomplicated; I08.1 Rheumatic disorders of both mitral and tricuspid valves; R09.02 Hypoxemia; K21.9 Gastro-esophageal reflux disease without esophagitis; F41.9 Anxiety disorder, unspecified; I45.10 Unspecified right bundle-branch block; G43.909 Migraine, unspecified, not intractable, without status migrainosus; I83.90 Asymptomatic varicose veins of unspecified lower extremity; M19.90 Unspecified osteoarthritis, unspecified site; R07.89 Other chest pain; I10 Essential (primary) hypertension; D72.810 Lymphocytopenia; E78.5 Hyperlipidemia, unspecified; E87.6 Hypokalemia; I25.10 Atherosclerotic heart disease of native coronary artery without angina pectoris; I25.2 Old myocardial infarction; Z28.310 Unvaccinated for COVID-19; Z79.02 Long term (current) use of antithrombotics/antiplatelets; Z79.82 Long term (current) use of aspirin; Z79.899 Other long term (current) drug therapy; Z95.5 Presence of coronary angioplasty implant and graft; Z87.19 Personal history of other diseases of the digestive system; Z88.5 Allergy status to narcotic agent; Z95.828 Presence of other vascular implants and grafts; Z90.49 Acquired absence of other specified parts of digestive tract
CPT/HCPCS: 36415; 71045; 71275; 80053; 83036; 83605; 83615; 83735; 83880; 84100; 84132; 84145; 84484; 85025; 85379; 85610; 85730; 86140; 87635; 93005; 93306; 94640; 94760; 96374; 96375; 99285

== ENCOUNTER → 2023-05-31 | Outpatient (CLI) | payer OTHER ==
--- NOTE | 2023-06-02 09:01 | US ---
EXAMINATION TYPE: US abdomen complete DATE OF EXAM: 05/31/2023 COMPARISON: NONE CLINICAL INDICATION: Male, 58 years old with history of R14.0 ABD DISTENTION Z80.0 FAM HX NEOPLASM DI GESTI; abd distention TECHNIQUE: Multiple sonographic images of the abdomen are obtained. FINDINGS: EXAM MEASUREMENTS: Liver Length: 14.1 cm Gallbladder Wall: Surgically absent CBD: .6 cm Spleen: 9.7 cm Right Kidney: 12.2 x 4.9 x 4.8 cm Left Kidney: 12.4 x 4.1 x 4.4 cm COMMUNICATION SIGNALS INTELLIGENCE NOTES: Pancreas: Obscured by bowel gas Liver: Increased attenuation anechoic area left lobe 1.1 x 1.1 x 1.4 cm Gallbladder: Surgically absent Evidence for sonographic Carreno's sign: no CBD: wnl Spleen: wnl Right Kidney: No hydronephrosis or masses seen Left Kidney: No hydronephrosis or masses seen Upper IVC: wnl Abd Aorta: wnl The liver is homogenous. The intrahepatic portion of the IVC and proximal abdominal aorta are within normal limits. There is no evidence of cholelithiasis. Common bile duct is unremarkable. The spleen is unremarkable. Kidneys are symmetric and free of hydronephrosis. No renal lesions are seen. IMPRESSION: 1. 1.4 cm simple hepatic cyst. 2. Pancreas obscured by bowel gas 3. Cholecystectomy. 4. No biliary ductal dilatation.
== END | disposition home or self-care (01) ==
LOC: RADUSWWP 12:56
PROVIDERS: ATTEND Family Medicine
DX: K76.89 Other specified diseases of liver (principal); R14.0 Abdominal distension (gaseous); Z80.0 Family history of malignant neoplasm of digestive organs; Z90.49 Acquired absence of other specified parts of digestive tract
CPT/HCPCS: 76700

== ENCOUNTER 2024-03-28 09:56 | Day surgery (SDC) | payer OTHER ==
--- NOTE | 2024-03-28 09:04 | P.GSHP ---
History of Present Illness H&P Date: 03/28/24 CHIEF COMPLAINT: GERD and colon screen HISTORY OF PRESENT ILLNESS: The patient is a 59-year-old male who presents with gastroesophageal reflux disease and need for colon screen. Upper and lower endoscopy were offered for further evaluation and management. PAST MEDICAL HISTORY: Please see list. PAST SURGICAL HISTORY: Please see list. MEDICATIONS: Please see list. ALLERGIES: Please see list. SOCIAL HISTORY: No illicit drug use FAMILY HISTORY: No reports of Crohn disease or ulcerative colitis. REVIEW OF ORGAN SYSTEMS: CONSTITUTIONAL: No reports of fevers or chills. GI: Denies any blood in stools or constipation. PHYSICAL EXAM: VITAL SIGNS: Stable GENERAL: Well-developed pleasant in no acute distress. HEENT: No scleral icterus. Extraocular movements grossly intact. Moist buccal mucosa. NECK: Supple without lymphadenopathy. CHEST: Unlabored respirations. Equal bilateral excursions. CARDIOVASCULAR: Regular rate and rhythm. Distal 2+ pulses. ABDOMEN: Soft, nondistended. MUSCULOSKELETAL: No clubbing, cyanosis, or edema. ASSESSMENT: 1. Gastroesophageal reflux disease 2. Colon screen. PLAN: 1. Recommend proceeding with an upper and lower endoscopy Past Medical History Past Medical History: Chest Pain / Angina, GERD/Reflux, GI Bleed, Hyperlipidemia, Hypertension, Myocardial Infarction ([place]), Osteoarthritis (OA), Vascular Disorder Additional Past Medical History / Comment(s): Peripheral Artery Disease, varicose veins, occassional headaches, rare migraines, hx bleeding ulcer-2018. Last Myocardial Infarction Date:: 06/24/18 History of Any Multi-Drug Resistant Organisms: None Reported Past Surgical History: Cholecystectomy, Heart Catheterization With Stent, Hernia Repair, Orthopedic Surgery, Tonsillectomy Additional Past Surgical History / Comment(s): ACL repair left knee, bone shaved, laser surgery to open arteries in bilateral legs, Aortogram, two stents left leg, one cardiac stent, umbilical hernia repair X4, inguinal hernia repair, Lt. femoral to tibial bypass 2022 Past Anesthesia/Blood Transfusion Reactions: No Reported Reaction Date of Last Stent Placement:: 06/2018 Smoking Status: Current every day smoker - Past Family History Brother(s) Family Medical History: Deep Vein Thrombosis (DVT), Pulmonary Embolus Mother Family Medical History: Cancer Additional Family Medical History / Comment(s): kidney CA Medications and Allergies Home Medications Medication Instructions Recorded Confirmed Type Nitroglycerin Sl Tabs [Nitrostat] 0.4 mg SUBLINGUAL Q5M PRN #25 tab 06/26/18 03/27/24 Rx Atorvastatin [Lipitor] 40 mg PO HS 01/29/19 03/27/24 History Omeprazole [PriLOSEC] 20 mg PO HS 01/29/19 03/27/24 History Acetaminophen Tab [Tylenol] 1,000 mg PO Q6H PRN 04/09/20 03/27/24 History Losartan Potassium [Cozaar] 100 mg PO DAILY 10/08/21 03/27/24 History Metoprolol Tartrate [Lopressor] 25 mg PO BID 10/08/21 03/27/24 History amLODIPine [Norvasc] 10 mg PO DAILY 10/08/21 03/27/24 History tadalafiL [Cialis] 20 mg PO DAILY PRN 10/08/21 03/27/24 History traZODone HCL 100 mg PO HS 10/08/21 03/27/24 History Cholecalciferol [Vitamin D3 (25 50 mcg PO DAILY tab 10/09/21 03/27/24 Rx Mcg = 1000 Iu)] HYDROcodone/APAP 10-325MG [[place] 1 tab PO Q6HR PRN 03/27/24 03/27/24 History 10-325] Allergies Allergy/AdvReac Type Severity Reaction Status Date / Time morphine topical Allergy Rash/Hives Uncoded 03/27/24 09:18
[2024-03-28] MEDS: IV FLUID CONTINUATION 1,000 ML IV ONE (10:28)
[2024-03-28 10:31] VITALS: TEMP 97.3
[2024-03-28] MEDS ORDERED: LACTATED RINGERS 1,000 ML IV SCH (10:37)
[2024-03-28] MEDS: LACTATED RINGERS 1,000 ML BAG IV STA (10:37)
[2024-03-28] MEDS ORDERED: LIDOCAINE 1% INJ 10MG/ML (20 ML MDV) ONE (11:19)
[2024-03-28] MEDS ORDERED: PROPOFOL 10 MG/ML 20 ML VIAL IV ONE (11:19)
[2024-03-28 12:02] VITALS: RESP 16
--- NOTE | 2024-03-28 12:42 | P.PCN ---
Date of Procedure: 03/28/24 Description of Procedure: PREOPERATIVE DIAGNOSIS: Duodenal ulcer with bleeding POSTOPERATIVE DIAGNOSIS: Gastritis with recent bleed Duodenitis OPERATION: Esophagogastroduodenoscopy with cold forceps biopsies along esophagus, antrum and duodenum SURGEON: Yesi Yeboah MD ANESTHESIA: MAC. INDICATIONS: The patient is a 59-year-old male who presents with reflux disease. Benefits and risks of the procedure were described. Informed consent was obtained. DESCRIPTION: The patient was brought into the endoscopy suite and laid in the left lateral decubitus position. An Olympus gastroscope was passed along the posterior oropharynx down to the distal esophagus where the squamocolumnar junction was encountered at 40 cm from the incisors. The stomach was entered and no bile reflux was found. Additional findings are listed below. Biopsies with cold forceps were obtained of the antrum. The first through third portion of the duodenum was examined. Retroflexion of the scope confirmed Hill grade 2 lower esophageal valve. The squamocolumnar junction demonstrated LA grade B erosive esophagitis. The stomach was desufflated. The patient tolerated the procedure well. FINDINGS: Squamocolumnar junction 40 cm from the incisors. Diaphragmatic hiatus at 40 cm. Hill grade 2 lower esophageal valve. LA grade B erosive esophagitis. Biopsies obtained of the duodenum for acute duodenitis Acute gastritis with bleeding with biopsies obtained. RECOMMENDATIONS: Omeprazole 40 mg daily for 2 to 4 weeks
--- NOTE | 2024-03-28 12:45 | P.PCN ---
Date of Procedure: 03/28/24 Description of Procedure: PREOPERATIVE DIAGNOSIS: Personal history of colon polyps Colonoscopy screening POSTOPERATIVE DIAGNOSIS: Tubular adenoma sigmoid colon Sigmoid diverticulosis Internal hemorrhoids, grade 2 OPERATION: Colonoscopy to the ileocecal valve and appendiceal orifice, cecum SURGEON: Yesi Yeboah MD. ANESTHESIA: MAC. INDICATIONS: The patient is an 59-year-old male who presents personal history of colon polyps. Last colonoscopy 5 years. Benefits and risks were described and informed consent was obtained. DESCRIPTION OF PROCEDURE: The patient had undergone GoLytely prep. The patient had been brought into the operating room and laid in the left lateral decubitus position. After adequate intravenous sedation, the rectum was examined with 2% lidocaine jelly. The prostate was unremarkable. External hemorrhoids were encountered. The rectal tone was within normal limits. No lesions were palpated in the rectal vault. An Olympus colonoscope was advanced until the cecum, ileocecal valve and appendiceal orifice were clearly viewed. The prep was fair. Sigmoid divertic ulosis was encountered. Colonic polyps were found with attempted removal. No evidence of focal colitis was found. Retroflexion of the scope demonstrated grade 2 internal hemorrhoids without active bleeding or inflammation. The colon was desufflated. The patient had tolerated the procedure well. Withdrawal time was over 6 minutes. FINDINGS: Aronchick preparation quality scale 3 (1-5) Internal hemorrhoids, grade 3 External hemorrhoids, grade 3 No arteriovenous malformations. Sigmoid diverticulosis Attempted removal of polyps: - Polyp 6 mm tubulovillous adenoma, sigmoid colon, unable to retrieve No focal colitis. RECOMMENDATIONS: Repeat colonoscopy in 3 to 6 months, June to September 2024 for polypectomy including improved bowel prep Plan - Discharge Summary Discharge Rx Participant: No New Discharge Prescriptions: Continue Nitroglycerin Sl Tabs [Nitrostat] 0.4 mg SUBLINGUAL Q5M PRN #25 tab PRN Reason: Chest Pain Omeprazole [PriLOSEC] 20 mg PO HS Atorvastatin [Lipitor] 40 mg PO HS Acetaminophen Tab [Tylenol] 1,000 mg PO Q6H PRN PRN Reason: Pain Metoprolol Tartrate [Lopressor] 25 mg PO BID amLODIPine [Norvasc] 10 mg PO DAILY Losartan Potassium [Cozaar] 100 mg PO DAILY traZODone HCL 100 mg PO HS tadalafiL [Cialis] 20 mg PO DAILY PRN PRN Reason: sexual activity Cholecalciferol [Vitamin D3 (25 Mcg = 1000 Iu)] 50 mcg PO DAILY tab HYDROcodone/APAP 10-325MG [[place] 10-325] 1 tab PO Q6HR PRN PRN Reason: Pain Discharge Medication List Nitroglycerin Sl Tabs [Nitrostat] 0.4 mg SUBLINGUAL Q5M PRN #25 tab 06/26/18 [Rx] Atorvastatin [Lipitor] 40 mg PO HS 01/29/19 [History] Omeprazole [PriLOSEC] 20 mg PO HS 01/29/19 [History] Acetaminophen Tab [Tylenol] 1,000 mg PO Q6H PRN 04/09/20 [History] Losartan Potassium [Cozaar] 100 mg PO DAILY 10/08/21 [History] Metoprolol Tartrate [Lopressor] 25 mg PO BID 10/08/21 [History] amLODIPine [Norvasc] 10 mg PO DAILY 10/08/21 [History] tadalafiL [Cialis] 20 mg PO DAILY PRN 10/08/21 [History] traZODone HCL 100 mg PO HS 10/08/21 [History] Cholecalciferol [Vitamin D3 (25 Mcg = 1000 Iu)] 50 mcg PO DAILY tab 10/09/21 [Rx] HYDROcodone/APAP 10-325MG [[place] 10-325] 1 tab PO Q6HR PRN 03/27/24 [History] Follow up Appointment(s)/Referral(s): Yesi Yeboah MD [STAFF PHYSICIAN] - 04/24/24 2:00 pm Patient Instructions/Handouts: *Surgery [facility] - (Anesthesia) Discharge Instructions Outpatient Surgery, Gastritis (DC), Diverticulosis (DC), Diet for Stomach Ulcers and Gastritis (ED), Colorectal Polyps (GEN), Diverticulosis Diet (GEN) Activity/Diet/Wound Care/Special Instructions: Repeat colonoscopy in 6 months, September 2024 Discharge Disposition: HOME SELF-CARE
[2024-03-28 13:20] VITALS: BP 120/61; PULSE 72
== END 2024-03-28 12:38 | disposition home or self-care (01) ==
LOC: ORWHC2ENDO 09:56
PROVIDERS: ATTEND Surgery Plastic and Reconstructive Surgery
DX: Z12.11 Encounter for screening for malignant neoplasm of colon (principal); K29.50 Unspecified chronic gastritis without bleeding; D12.5 Benign neoplasm of sigmoid colon; K57.30 Diverticulosis of large intestine without perforation or abscess without bleeding; K64.1 Second degree hemorrhoids; K64.2 Third degree hemorrhoids; K21.00 Gastro-esophageal reflux disease with esophagitis, without bleeding; K29.80 Duodenitis without bleeding; I20.9 Angina pectoris, unspecified; I73.9 Peripheral vascular disease, unspecified; I25.2 Old myocardial infarction; I10 Essential (primary) hypertension; E78.5 Hyperlipidemia, unspecified; F32.A Depression, unspecified; F41.9 Anxiety disorder, unspecified; J44.9 Chronic obstructive pulmonary disease, unspecified; G43.909 Migraine, unspecified, not intractable, without status migrainosus; M19.90 Unspecified osteoarthritis, unspecified site; F17.210 Nicotine dependence, cigarettes, uncomplicated; Z98.890 Other specified postprocedural states; Z90.49 Acquired absence of other specified parts of digestive tract; Z90.89 Acquired absence of other organs; Z88.5 Allergy status to narcotic agent; Z79.899 Other long term (current) drug therapy
CPT/HCPCS: 88305; 45378; 43239; J2003; J2704; 45385